=== PATIENT | male | born 1945 | race Caucasian/White ===

== ENCOUNTER → 2020-06-15 08:04 | Outpatient (BNVA) | payer MEDICARE, SELFPAY | PROVIDERS: PCP Family Medicine; Referring Provider Family Medicine; Visit Provider Internal Medicine Endocrinology, Diabetes & Metabolism | DX: E11.65 Type 2 diabetes mellitus with hyperglycemia (principal); E11.21 Type 2 diabetes mellitus with diabetic nephropathy; Z79.84 Long term (current) use of oral hypoglycemic drugs; I10 Essential (primary) hypertension; E78.5 Hyperlipidemia, unspecified; I25.10 Atherosclerotic heart disease of native coronary artery without angina pectoris; E66.3 Overweight; Z68.25 Body mass index [BMI] 25.0-25.9, adult; I25.2 Old myocardial infarction | CPT/HCPCS: 36415; 80053; 80061; 82043; 82607; 82947; 83721; 85027; 99212 ==

== ENCOUNTER 2020-06-15 09:27 | Outpatient (REF) | payer MEDICARE, SELFPAY ==
[2020-06-15 10:24] LABS: Hematocrit 46.2 % (42-52); Mean Corpuscular HGB Conc 32.5 g/dl (31.0-36.0); Mean Corpuscular Volume 98.5 fL (80-98); Mean Platelet Volume 9.3 fL (9.4-12.4); Platelet Count 251 X10*3/uL (160-400); Red Blood Count 4.69 X10*6/uL (4.60-5.80); Red Cell Distribution Width 13.8 % (11.0-16.0); White Blood Count 4.6 X10*3/uL (4.8-10.8)
[2020-06-15 11:05] LABS: Alanine Aminotransferase 25 U/L (0-40); Albumin Level 4.6 g/dL (3.5-5.0); Alkaline Phosphatase 70 U/L (39-117); Anion Gap 14 (12-20); Aspartate Amino Transferase 20 U/L (5-37); Bilirubin Total 0.6 mg/dL (0.0-1.0); Blood Urea Nitrogen 15 mg/dL (9-16); Calcium 9.2 mg/dL (8.4-10.2); Carbon Dioxide 26 mmol/L (22-29); Chloride 102 mmol/L (96-108); Cholesterol 124 mg/dL; Estimated Glomerular Filt Rate > 60; Glucose Fasting 159 mg/dL (60-99); HDL Cholesterol 34 mg/dL; LDL Cholesterol Calculated 74 mg/dl; Potassium 4.3 mmol/l (3.3-5.1); Sodium 138 mmol/L (135-145); Total Protein 6.9 g/dL (6.5-8.0); Triglycerides 80 mg/dL
[2020-06-15 11:26] LABS: Vitamin B12 892 pg/mL (200-900)
[2020-06-15 11:27] LABS: Creatinine Urine 60.42 mg/dL; Microalbum/Creatinine Ratio Ur 62.8 ug/mg cr
[2020-06-16 18:12] LABS: LDL Cholesterol Direct 82 mg/dL (<100)
== END 2020-06-15 09:28 | disposition home or self-care (01) ==
LOC: HO.10HDL 09:27
PROVIDERS: Visit Provider Internal Medicine Endocrinology, Diabetes & Metabolism
DX: Z13.89 Encounter for screening for other disorder (principal)
CPT/HCPCS: 36415; 80053; 80061; 82043; 82607; 83721; 85027

== ENCOUNTER → 2020-09-22 13:03 | Outpatient (BNVA) | payer MEDICARE, SELFPAY | PROVIDERS: PCP Family Medicine; Visit Provider Internal Medicine Cardiovascular Disease | DX: I25.10 Atherosclerotic heart disease of native coronary artery without angina pectoris (principal); I10 Essential (primary) hypertension | CPT/HCPCS: 99212 ==

== ENCOUNTER 2020-10-01 09:23 | Outpatient (REF) | payer MEDICARE, SELFPAY ==
[2020-10-01 10:58] LABS: Prostate Specific Antigen 3.25 ng/mL (<0.05-4.0)
== END 2020-10-01 09:24 | disposition home or self-care (01) ==
LOC: HO.10HDL 09:23
PROVIDERS: Absent Provider Family Medicine; Visit Provider Urology
DX: N42.89 Other specified disorders of prostate (principal); Z12.5 Encounter for screening for malignant neoplasm of prostate
CPT/HCPCS: 36415; 84153

== ENCOUNTER 2020-10-15 09:26 | Outpatient (REF) | payer MEDICARE, SELFPAY ==
--- NOTE | ~2020-10-15 | MR_ITS ---
EXAMINATION: MR BRAIN WITHOUT AND WITH CONTRAST CLINICAL INFORMATION: Sensorineural hearing loss right ear. COMPARISON: CT scan of the head 04/22/2019. MRI scan of the brain 01/28/2013. TECHNIQUE: Multiplanar, multisequence MRI of the brain was obtained before and after the intravenous administration of 8 mL Gadavist. FINDINGS: The VII and VIII cranial nerve complexes are normal in course and caliber. No signal abnormality is visualized within the inner ear structures on the precontrast axial T1-weighted sequence. Fluid signal is preserved within the cochleae, semicircular canals, and vestibules on the high-resolution axial FIESTA sequence. No cerebellopontine angle lesion is noted. There is no abnormal labyrinthine or intracanalicular enhancement on postcontrast imaging. No diffusion abnormality is seen. The ventricles and sulci are slightly commensurately prominent consistent with mild diffuse volume loss. There are a few scattered foci of increased FLAIR signal in the periventricular and subcortical white matter, consistent with chronic microvascular ischemic changes. There is a 7 mm focus of low gradient signal in the left occipital lobe posteromedially, which has low signal on other sequences. It is increased in size and conspicuity compared to the prior MRI scan, and is consistent with sequelae of a chronic microhemorrhage or microcalcification. No mass effect or midline shift is evident. No extra-axial fluid collections are noted. The brainstem and cerebellum are normal. On postcontrast imaging, there is no abnormal parenchymal or leptomeningeal enhancement. The craniovertebral junction, marrow signal, and midline structures are normal. The visualized portions of the major intracranial flow-voids at the level of the kaw of [place] are preserved. The dural venous sinus flow-voids are maintained. There is moderate to extensive fluid in the right mastoid air cells, which was demonstrated on prior imaging. There is a prominent cyst in the right maxillary sinus. The nasal septum is deviated to the right. MR/MR head/brain wo/w con IMPRESSION: 1. There are no acute bleeds or infarcts. There are no masses or areas of abnormal enhancement. 2. The CP angles and internal auditory canals appear normal. There is moderate to extensive fluid in the right mastoid air cells, which was present on prior imaging. 3. There is a small focus of low gradient signal in the left occipital lobe, which is most consistent with sequelae of a chronic microhemorrhage or microcalcification.
[2020-10-15 10:05] LABS: Blood Urea Nitrogen 17 mg/dL (9-16); Estimated Glomerular Filt Rate > 60
== END 2020-10-15 09:27 | disposition home or self-care (01) ==
LOC: HO.MRI 09:26
PROVIDERS: PCP Family Medicine; Visit Provider Otolaryngology
DX: H90.41 Sensorineural hearing loss, unilateral, right ear, with unrestricted hearing on the contralateral side (principal); D33.3 Benign neoplasm of cranial nerves
CPT/HCPCS: 36415; 70553; 82565; 84520; A9585

== ENCOUNTER → 2020-11-23 07:53 | Outpatient (BNVA) | payer MEDICARE, SELFPAY | PROVIDERS: PCP Family Medicine; Visit Provider Internal Medicine Endocrinology, Diabetes & Metabolism | DX: E11.65 Type 2 diabetes mellitus with hyperglycemia (principal); E11.21 Type 2 diabetes mellitus with diabetic nephropathy; E66.3 Overweight; Z68.26 Body mass index [BMI] 26.0-26.9, adult; E78.5 Hyperlipidemia, unspecified; I10 Essential (primary) hypertension; Z79.84 Long term (current) use of oral hypoglycemic drugs; Z71.3 Dietary counseling and surveillance | CPT/HCPCS: 82947; 99212 ==

== ENCOUNTER 2020-12-03 11:16 | Outpatient (REF) | payer MEDICARE, SELFPAY ==
[2020-12-03 12:49] LABS: Alanine Aminotransferase 22 U/L (0-40); Albumin Level 4.6 g/dL (3.5-5.0); Alkaline Phosphatase 73 U/L (39-117); Anion Gap 13 (12-20); Aspartate Amino Transferase 17 U/L (5-37); Bilirubin Total 0.6 mg/dL (0.0-1.0); Blood Urea Nitrogen 14 mg/dL (9-16); Calcium 9.7 mg/dL (8.4-10.2); Carbon Dioxide 28 mmol/L (22-29); Estimated Glomerular Filt Rate > 60; Glucose Random 156 mg/dL (60-115); Potassium 4.6 mmol/L (3.3-5.1); Sodium 139 mmol/L (135-145); Total Protein 7.1 g/dL (6.5-8.0)
[2020-12-03 12:50] LABS: Chloride 103 mmol/L (96-108)
[2020-12-03 12:58] LABS: Estimated Average Glucose 166 mg/dL; Hemoglobin A1c % 7.4 %
== END 2020-12-03 11:17 | disposition home or self-care (01) ==
LOC: HO.LAB 11:16
PROVIDERS: Absent Provider Physician Assistant; PCP Family Medicine; Visit Provider Internal Medicine Endocrinology, Diabetes & Metabolism
DX: E11.49 Type 2 diabetes mellitus with other diabetic neurological complication (principal)
CPT/HCPCS: 36415; 80053; 83036

== ENCOUNTER → 2021-04-06 09:15 | Outpatient (BNVA) | payer MEDICARE, SELFPAY | PROVIDERS: PCP Family Medicine; Referring Provider Family Medicine; Visit Provider Internal Medicine Cardiovascular Disease | DX: I25.10 Atherosclerotic heart disease of native coronary artery without angina pectoris (principal); E78.5 Hyperlipidemia, unspecified | CPT/HCPCS: 93005; 99212 ==

== ENCOUNTER 2021-04-22 09:24 | Outpatient (REF) | payer MEDICARE, SELFPAY ==
[2021-04-22 10:54] LABS: Alanine Aminotransferase 18 U/L (0-40); Albumin Level 4.4 g/dL (3.5-5.0); Alkaline Phosphatase 67 U/L (39-117); Anion Gap 13 (12-20); Aspartate Amino Transferase 16 U/L (5-37); Bilirubin Total 0.8 mg/dL (0.0-1.0); Blood Urea Nitrogen 14 mg/dL (9-16); Calcium 9.2 mg/dL (8.4-10.2); Carbon Dioxide 25 mmol/L (22-29); Chloride 103 mmol/L (96-108); Cholesterol 118 mg/dL; Estimated Glomerular Filt Rate > 60; Glucose Fasting 141 mg/dL (60-99); HDL Cholesterol 34 mg/dL; LDL Cholesterol Calculated 69 mg/dl; Potassium 4.3 mmol/L (3.3-5.1); Sodium 137 mmol/L (135-145); Total Protein 6.8 g/dL (6.5-8.0); Triglycerides 77 mg/dL
[2021-04-24 13:40] LABS: CRP High Sensitivity 0.4 mg/L
== END 2021-04-22 09:25 | disposition home or self-care (01) ==
LOC: HO.10HDL 09:24
PROVIDERS: Absent Provider Internal Medicine Endocrinology, Diabetes & Metabolism; Referring Provider Family Medicine; Visit Provider Internal Medicine Cardiovascular Disease
DX: E78.5 Hyperlipidemia, unspecified (principal); I25.10 Atherosclerotic heart disease of native coronary artery without angina pectoris; E11.65 Type 2 diabetes mellitus with hyperglycemia
CPT/HCPCS: 36415; 80053; 80061; 86141

== ENCOUNTER → 2021-05-26 07:36 | Outpatient (BNVA) | payer MEDICARE, SELFPAY | PROVIDERS: PCP Family Medicine; Visit Provider Nurse Practitioner Gerontology | DX: E11.65 Type 2 diabetes mellitus with hyperglycemia (principal); E11.21 Type 2 diabetes mellitus with diabetic nephropathy; I10 Essential (primary) hypertension; E78.5 Hyperlipidemia, unspecified; E66.3 Overweight | CPT/HCPCS: 82947; 83036; 99212 ==

== ENCOUNTER 2021-06-12 16:10 | Emergency (ER) | payer MEDICARE, SELFPAY ==
--- NOTE | 2021-06-12 | ECG_ITS ---
Test Reason : PALPITATIONS Blood Pressure : / mmHG Vent. Rate : 078 BPM Atrial Rate : 078 BPM P-R Int : 170 ms QRS Dur : 092 ms QT Int : 368 ms P-R-T Axes : 043 -02 072 degrees QTc Int : 419 ms Normal sinus rhythm Low voltage QRS Left axis deviation Borderline ECG When compared with ECG of 08-JUL-2018 16:44, No significant change was found Referred By: Generic ED Physician Electronically Signed By:KARIS ALEMAN MD
[2021-06-12 16:16] VITALS: BP 135/67; PULSE 79; RESP 18; TEMP 36.8; O2SAT 98; BMI 25.9
--- NOTE | 2021-06-12 18:04 | ED.ARRPALP ---
HPI - Arrhythmia/Palpitations General Chief Complaint: Arrhythmia/Palpitations Stated Complaint: Palpitations Time Seen by Provider: 06/12/21 17:47 Source: patient Limitations: no limitations History of Present Illness HPI narrative: This is a 76-year-old male with history of coronary artery disease, hypertension, dyslipidemia, type 2 diabetes, who was recently noted palpitations especially his night, like his heart is going fast and irregular. It is better during the daytime. It is not constant. Patient denies any chest pain, shortness of breath, dizzy spells, lower extremity swelling. He said he has had these palpitations off and on some time but they seem worse recently. He does use caffeine sometimes and notes that when he drinks a caffeinated beverage, tends to fall asleep okay but wakes up at 05:00 o'clock the next morning. 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 He does use occasional home grownmarijuana but stopped that about a week and half ago. He also notes that he is on isosorbide and wonders if it does not wear office sometimes he wakes up with chest discomfort at 4 5 in the morning. He also notes that his statin medication seems to cause joint pain in his shoulders, and he takes coenzyme Q10 which helps with that somewhat. Related Data Home Medications Medication Instructions Recorded Confirmed blood sugar diagnostic #10 ea 06/15/20 05/26/21 finasteride 5 mg tablet 5 mg PO DAILY 09/22/20 05/26/21 coenzyme Q10 75 mg capsule (Ultra 75 mg PO DAILY 04/06/21 05/26/21 CoQ10) Previous Rx's Medication Instructions Recorded empagliflozin 25 mg tablet 25 mg PO DAILY 90 Days #90 tab 11/23/20 (Jardiance) metformin 1,000 mg tablet 1,000 mg PO BID 90 Days #180 tab 11/23/20 pen needle, diabetic 32 gauge x 1 ea SUBCUT DAILY 90 Days #100 ea 11/23/20 (BD Ultra-Fine Guillermina Pen Needle) atorvastatin 40 mg tablet 40 mg PO DAILY #90 tab 02/02/21 isosorbide mononitrate 30 mg 30 mg PO QAM #90 tab 02/05/21 tablet,extended release 24 hr metoprolol succinate 100 mg 100 mg PO DAILY #90 tab 03/18/21 tablet,extended release 24 hr lisinopril 5 mg tablet 5 mg PO DAILY 90 Days #90 tab 05/20/21 dulaglutide 0.75 mg/0.5 mL 0.75 mg SUBCUT QWEEK #2 ml 05/26/21 subcutaneous pen injector (Trulicity) Allergies Allergy/AdvReac Type Severity Reaction Status Date / Time No Known Allergies Allergy Unknown UNKNOWN Unverified 05/26/21 08:03 [NO KNOWN ALLERGIES] Review of Systems Review of Systems: Yes all other systems are reviewed and are negative Constitutional: Constitutional: Reports as per HPI and Denies fever(s) Eyes: Eyes: Reports as per HPI and Reports no additional eye complaints ENT: Reports system reviewed and no additional complaints, except as documented, Reports as per HPI, Denies Normal hearing present (Wears hearing aid), Denies nasal congestion, Denies nasal discharge and Denies sore throat Cardiovascular: Cardiovascular: Reports as per HPI, Reports chest pain (Describes a stable anginal pain) and Denies dyspnea Respiratory: Respiratory: Reports as per HPI, Denies cough and Denies dyspnea Gastrointestinal: Gastrointestinal: Reports as per HPI, Denies abdominal pain, Reports diarrhea, Denies nausea and Denies vomiting Genitourinary: Genitourinary: Reports as per HPI, Denies hematuria, Denies dysuria and Denies urinary frequency Musculoskeletal: Musculoskeletal: Reports arthralgias and Denies numbness Integumentary/Breasts: Skin/Breast: Reports as per HPI and Denies rash Neurologic: Reports as per HPI, Denies Normal hearing present (Wears hearing aid), Denies focal weakness, Denies numbness and Denies Sensory deficit (Neuro) Psychiatric: Psychiatric: Reports no additional psychiatric complaints and Reports as per HPI Endocrine: Endocrine: Reports no additional endocrine complaints and Reports as per HPI Hematologic/Lymphatic: Hematologic/Lymphatic: Reports no additional hematologic/lymphatic complaints, Reports as per HPI and Reports other (No peripheral edema) [facility] Past Medical History Medical History CAD (coronary artery disease) Diabetes type 2, uncontrolled Diabetic nephropathy associated with type 2 diabetes mellitus Dyslipidemia Hypertension Overweight (BMI 25.0-29.9) Surgical History History of prostate surgery Hx of cardiac cath Stented coronary artery Family History Family History Father No problems noted. Mother No problems noted. Maternal Uncle Diabetes mellitus Social History Social History (Updated 05/26/21 @ 07:44 by MARIE Bunch) Household Members: Family Alcohol intake: current Alcohol intake frequency: a few times a month Alcohol type: beer and hard liquor Patient Tobacco Use Status: Never used Tobacco Advance Directives: No Advance Directives Information Provided: No Physical Exam Vital Signs: Vital Signs: Last Vital Signs Temp 98.0 F 06/12/21 19:16 Pulse 67 06/12/21 19:16 Resp 16 06/12/21 19:16 BP 127/76 06/12/21 19:16 Pulse Ox 98 06/12/21 19:16 Body Mass Index 25.9 Const: General: cooperative, no acute distress and alert Orientation/consciousness: patient oriented x3 HENMT: Head: Yes normal to inspection Eyes: General: appearance normal, both eyes and all related structures Eyelids: Yes eyelids normal Conjunctivae: conjunctivae normal Pupils: Equal, round and reactive pupils present Neck: Neck: Yes normal visual inspection and Yes supple Chest: Chest palpation & inspection: normal inspection of the chest Resp: Effort & Inspection: normal respiratory effort Auscultation: clear to auscultation bilaterally Cardio: Rate: regular rate Rhythm: regular rhythm Heart sounds: S1 normal heart sound present, S2 normal heart sound present, no gallops, no murmurs and no rubs GI: Palpation (GI): Soft to palpation, nontender and Other GI palpation findings present (Non-distended) Auscultation: normal bowel sounds Skin: General skin exam: no rashes or lesions noted Neuro: General: patient oriented x3, no focal motor deficits and CN's II-XI intact bilaterally Cranial nerves: Yes Equal, round and reactive pupils present and No Normal hearing present (Wears hearing aid) Cognition (Neuro): normal cognition Motor exam (neuro): 5/5 motor strength present throughout Sensory Exam: No Sensory deficit (Neuro) Extrem: General: Yes normal to inspection and Yes no pedal edema Psych: Appearance: grossly normal Affect: normal affect MDM - Arrhythmia/Palpitations MDM Narrative Medical decision making narrative: Patient with a history of coronary artery disease, but no history of arrhythmia unknown. Patient does have obstructive sleep apnea, hypertension, dyslipidemia, diabetes. Patient notes palpitations especially at night, feels like his heart goes fast and irregular. EKG normal here. No arrhythmia observed on the monitor during the patient's ED stay. Patient seems to believe that symptoms occur especially when he is sleeping or nearly sleeping. May be related to obstructive sleep apnea, though the patient does use a CPAP machine. May have an anxiety component. Recommend cessation of caffeine and alcohol, follow-up with primary care physician or applications coordinator for placement of an event monitor. Patient overall well-appearing, mentally sharp Medical Records Attestation: I reviewed the patient's medical records. Lab Data Attestation: I reviewed the patient's lab results. Result diagrams: 06/12/21 18:11 06/12/21 18:11 Labs: Lab Results 06/12/21 06/12/21 06/12/21 Range/Units 18:11 18:11 18:11 WBC 6.0 (4.8-10.8) X10*3/uL RBC 4.77 (4.60-5.80) X10*6/uL Hgb 15.6 (14.0-18.0) g/dl Hct 47.1 (42.0-52.0) % MCV 98.7 H (80.0-98.0) fL MCH 32.7 (27.0-33.0) pg MCHC 33.1 (31.0-36.0) g/dl RDW 13.2 (11.0-16.0) % Plt Count 255 (160-400) X10*3/uL MPV 9.1 L (9.4-12.4) fL Immature Gran % (Auto) 0.5 H (0.0-0.4) % Neut % (Auto) 54.2 (45-73) % Lymph % (Auto) 35.1 (20-40) % [place] % (Auto) 7.2 (2-11) % Eos % (Auto) 2.5 (0-4) % Baso % (Auto) 0.5 (0-2) % Lymph # (Auto) 2.1 (1.2-4.9) X10*3/uL [place] # (Auto) 0.4 (0.1-1.2) X10*3/uL Eos # (Auto) 0.2 (0.0-0.4) X10*3/uL Baso # (Auto) 0.0 (0.0-0.2) X10*3/uL Abs Immat Gran (auto) 0.03 (0.00-0.03) X10*3/uL Absolute Neuts (auto) 3.3 (2.0-8.3) x10*3/uL Absolute Nucleated RBC 0.000 (0.0-0.012) X10*3/uL Nucleated RBC % (auto) 0.0 (0.0-0.2) /100WBC Sodium 139 (135-145) mmol/L Potassium 4.9 (3.3-5.1) mmol/L Chloride 104 (96-108) mmol/L Carbon Dioxide 24 (22-29) mmol/L Anion Gap 16 (12-20) BUN 15 (9-16) mg/dL Creatinine 0.81 (0.5-1.4) mg/dL Estim Creat Clear Calc 73.8 Estimated GFR > 60 Random Glucose 121 H (60-115) mg/dL Calcium 10.1 D (8.4-10.2) mg/dL Magnesium 2.0 (1.6-2.6) mg/dL Total Bilirubin 0.7 (0.0-1.0) mg/dL AST 19 (5-37) U/L ALT 20 (0-40) U/L Alkaline Phosphatase 72 (39-117) U/L Troponin I High Sens < 3.5 (<3.5-35.0) ng/L Total Protein 7.7 (6.5-8.0) g/dL Albumin 4.9 (3.5-5.0) g/dL ECG Data ECG interpretation date: 06/12/21 ECG interpretation time: 18:09 Interpretation: Sinus rhythm with a rate of 78. No ST elevation or depression. Normal QRS axis. Normal EKG. Discharge Plan Discharge Clinical Impression: Palpitations Patient Disposition: Home, Self-Care Instructions: Heart Palpitations (ED) Additional Instructions: Continue current medications. Avoid caffeine as well as alcohol use. Follow-up with primary care physician or applications coordinator for ordering/placement of an event monitor. Return for any new or worsened symptoms such as dizzy spells or fainting episodes, persistent rapid irregular heart rate, persistent chest pain or shortness of breath. Prescriptions: No Action atorvastatin 40 mg tablet 40 mg PO DAILY Qty: 90 RF: 1 isosorbide mononitrate 30 mg tablet extended release 24 hr 30 mg PO QAM Qty: 90 RF: 3 metoprolol succinate 100 mg tablet extended release 24 hr 100 mg PO DAILY Qty: 90 RF: 1 lisinopril 5 mg tablet 5 mg PO DAILY 90 Days Qty: 90 RF: 1 (DME) FreeStyle Lite Strips Strip See Rx Instructions ea Not Applicable TID Qty: 10 RF: 0 Jardiance 25 mg tablet 25 mg PO DAILY 90 Days Qty: 90 RF: 1 metformin 1,000 mg tablet 1,000 mg PO BID 90 Days Qty: 180 RF: 1 pen needle, diabetic [BD Ultra-Fine Guillermina Pen Needle] 32 gauge x 5/32 needle 1 ea subcut DAILY 90 Days Qty: 100 RF: 2 finasteride 5 mg tablet 5 mg PO DAILY RF: 0 Ultra CoQ10 75 mg capsule 75 mg PO DAILY RF: 0 Trulicity 0.75 mg/0.5 mL pen injector 0.75 mg subcut QWEEK Qty: 2 RF: 11 Interventions: ED Discharge Assessment Last Done: 06/12/21 19:48 Discharge Date/Time: 06/12/21 19:49
[2021-06-12 18:15] LABS: MANUAL DIFF FLAG NO
[2021-06-12 18:36] LABS: Basophils Percent Auto 0.5 % (0-2); Eosinophils Absolute Auto 0.2 X10*3/uL (0.0-0.4); Eosinophils Percent Auto 2.5 % (0-4); Hematocrit 47.1 % (42.0-52.0); Hemoglobin 15.6 g/dl (14.0-18.0); Imm Gran Abs Auto 0.03 X10*3/uL (0.00-0.03); Imm Gran Pct Auto 0.5 % (0.0-0.4); Lymphocytes Absolute Auto 2.1 X10*3/uL (1.2-4.9); Lymphocytes Percent Auto 35.1 % (20-40); Mean Corpuscular HGB Conc 33.1 g/dl (31.0-36.0); Mean Corpuscular Hemoglobin 32.7 pg (27.0-33.0); Mean Corpuscular Volume 98.7 fL (80.0-98.0); Mean Platelet Volume 9.1 fL (9.4-12.4); Monocytes Absolute Auto 0.4 X10*3/uL (0.1-1.2); Monocytes Percent Auto 7.2 % (2-11); Neutrophils Absolute Auto 3.3 x10*3/uL (2.0-8.3); Neutrophils Percent Auto 54.2 % (45-73); Platelet Count 255 X10*3/uL (160-400); Red Blood Count 4.77 X10*6/uL (4.60-5.80); Red Cell Distribution Width 13.2 % (11.0-16.0)
[2021-06-12 18:43] LABS: Troponin-I High Sensitivity < 3.5 ng/L (<3.5-35.0)
[2021-06-12 18:45] LABS: Alanine Aminotransferase 20 U/L (0-40); Albumin Level 4.9 g/dL (3.5-5.0); Alkaline Phosphatase 72 U/L (39-117); Anion Gap 16 (12-20); Aspartate Amino Transferase 19 U/L (5-37); Bilirubin Total 0.7 mg/dL (0.0-1.0); Blood Urea Nitrogen 15 mg/dL (9-16); Calcium 10.1 mg/dL (8.4-10.2); Carbon Dioxide 24 mmol/L (22-29); Chloride 104 mmol/L (96-108); Creatinine Clr Calc Pharmacy 73.8; Estimated Glomerular Filt Rate > 60; Glucose Random 121 mg/dL (60-115); Potassium 4.9 mmol/L (3.3-5.1); Sodium 139 mmol/L (135-145); Total Protein 7.7 g/dL (6.5-8.0)
[2021-06-12 19:16] VITALS: BP 127/76; PULSE 67; RESP 16; TEMP 36.7; O2SAT 98
== END 2021-06-12 19:49 | disposition home or self-care (01) ==
PROVIDERS: Emergency Provider Emergency Medicine
DX: R00.2 Palpitations (principal); I10 Essential (primary) hypertension; E11.9 Type 2 diabetes mellitus without complications; I25.10 Atherosclerotic heart disease of native coronary artery without angina pectoris; G47.33 Obstructive sleep apnea (adult) (pediatric); Z79.899 Other long term (current) drug therapy; Z99.89 Dependence on other enabling machines and devices
CPT/HCPCS: 36415; 80053; 83735; 84484; 85025; 93005; 99283; 99284

== ENCOUNTER → 2021-06-22 06:58 | Outpatient (REF) | payer MEDICARE, SELFPAY ==
--- NOTE | 2021-06-22 07:00 | HM_ITS ---
Conclusion: 1. Patient was monitored for total period of 3 days and 1 hour 2. Baseline was normal sinus rhythm with average heart of 81 beats per minute 3. No significant pauses or bradycardia noted 4. Total of 12,062 PVCs noted with 3 different morphology accounting for total of 3.43% burden consistent with frequent PVCs 5. One episode of 3 beats of of PVCs at a rate of 130 beats per minute 6. No patient reported events MTDD
== END ==
LOC: HO.CARD 06:58
PROVIDERS: PCP Family Medicine; Visit Provider Internal Medicine Cardiovascular Disease
DX: R00.2 Palpitations (principal)
CPT/HCPCS: 93242

== ENCOUNTER 2021-07-26 22:17 | Emergency (ER) | payer MEDICARE, SELFPAY ==
[2021-07-26 22:49] VITALS: BP 144/78; PULSE 88; RESP 18; TEMP 37; O2SAT 97; BMI 26.7
--- NOTE | 2021-07-27 | ECG_ITS ---
Test Reason : DYSPNEA Blood Pressure : / mmHG Vent. Rate : 079 BPM Atrial Rate : 079 BPM P-R Int : 182 ms QRS Dur : 092 ms QT Int : 386 ms P-R-T Axes : 031 000 062 degrees QTc Int : 442 ms Sinus rhythm with occasional Premature ventricular complexes Otherwise normal ECG When compared with ECG of 12-JUN-2021 16:32, Premature ventricular complexes are now Present Referred By: Lona Mcmahon Electronically Signed By:ЕКАТЕРИНА CERVANTES MD
[2021-07-27 00:01] LABS: COVID-19 Test Negative (Negative)
--- NOTE | 2021-07-27 03:15 | ED_ITS ---
HPI - General Adult General Chief complaint: General Medical Stated complaint: weakness, body aches Time Seen by Provider: 07/26/21 22:21 Source: patient and EMS Mode of arrival: EMS Limitations: no limitations History of Present Illness HPI narrative: Patient comes to the emergency room complaining of couple of days of head pressure, mild upper respiratory symptoms, body aches. Patient denies fever or chills, denies any chest pain. No shortness of breath. No abdominal symptoms, no UTI symptoms. Related Data Home Medications Medication Instructions Recorded Confirmed blood sugar diagnostic #10 ea 06/15/20 05/26/21 finasteride 5 mg tablet 5 mg PO DAILY 09/22/20 05/26/21 coenzyme Q10 75 mg capsule (Ultra 75 mg PO DAILY 04/06/21 05/26/21 CoQ10) Previous Rx's Medication Instructions Recorded pen needle, diabetic 32 gauge x 1 ea SUBCUT DAILY 90 Days #100 ea 11/23/20 (BD Ultra-Fine Guillermina Pen Needle) atorvastatin 40 mg tablet 40 mg PO DAILY #90 tab 02/02/21 isosorbide mononitrate 30 mg 30 mg PO QAM #90 tab 02/05/21 tablet,extended release 24 hr metoprolol succinate 100 mg 100 mg PO DAILY #90 tab 03/18/21 tablet,extended release 24 hr lisinopril 5 mg tablet 5 mg PO DAILY 90 Days #90 tab 05/20/21 dulaglutide 0.75 mg/0.5 mL 0.75 mg (0.5 mL) SUBCUT QWEEK #2 ml 05/26/21 subcutaneous pen injector (Trulicity) empagliflozin 25 mg tablet 25 mg PO DAILY 90 Days #90 tab 07/06/21 (Jardiance) metformin 1,000 mg tablet 1,000 mg PO BID 90 Days #180 tab 07/07/21 Allergies Allergy/AdvReac Type Severity Reaction Status Date / Time No Known Allergies Allergy Unknown UNKNOWN Unverified 05/26/21 08:03 [NO KNOWN ALLERGIES] Review of Systems Review of Systems: Constitutional : No Weight loss, denies fever chills, complaining of weakness, generalized body aches ENT/Mouth : No Hearing loss, No Ear Pain, No Nasal Congestion, No Sinus Pain, No Hoarseness, No sore throat, No Rhinorrhea, No Swallowing Difficulty Eyes: No Eye Pain, No Swelling, No Redness, No Foreign Body, No Discharge, No Vision Changes Cardiovascular : No Chest Pain, No SOB, No Dyspnea on Exertion, No Orthopnea, No Edema, No Palpitations Respiratory : No Cough, No Sputum, No Wheezing, No Smoke Exposure, No Dyspnea Gastrointestinal : No Nausea, No Vomiting, No Diarrhea, No Constipation, No abdominal Pain, No Hematochezia, No Melena Genitourinary : no irregular bleeding, No Dysuria, No Urinary Frequency, No Hematuria, No Urinary Incontinence, No Urgency, No Flank Pain, No Urinary Flow Changes, No Hesitancy Musculoskeletal : No joint pain, No Myalgias, No Joint Swelling Skin : No Skin Lesions, No rash Neuro : No Weakness, No Numbness, No Paresthesias, No Loss of Consciousness, No Dizziness, complaining of a mild headache Psych : No Anxiety/Panic, No Depression, No SI/HI/AH/VH, No Social Issues, Heme/Lymph: No Bruising, No Bleeding,No Lymphadenopathy Endocrine : No Polyuria, No Polydipsia, No Temperature Intolerance [facility] Past Medical History Medical History CAD (coronary artery disease) Diabetes type 2, uncontrolled Diabetic nephropathy associated with type 2 diabetes mellitus Dyslipidemia Hypertension Overweight (BMI 25.0-29.9) Surgical History History of prostate surgery Hx of cardiac cath Stented coronary artery Family History Family History Father No problems noted. Mother No problems noted. Maternal Uncle Diabetes mellitus Social History Social History (Updated 05/26/21 @ 07:44 by MARIE Bunch) Household Members: Family Alcohol intake: current Alcohol intake frequency: a few times a month Alcohol type: beer and hard liquor Patient Tobacco Use Status: Never used Tobacco Advance Directives: No Physical Exam Vital Signs: Vital Signs: Last Vital Signs Temp 98.6 F 07/26/21 22:49 Pulse 88 07/26/21 22:49 Resp 18 07/26/21 22:49 BP 144/78 H 07/26/21 22:49 Pulse Ox 97 07/26/21 22:49 BMI result Body Mass Index 26.7 Const: Other: Appearance: Alert. Oriented X3. No acute distress. Well- appearing Eyes: Pupils equal, round and reactive to light. ENT: Pharynx normal. Neck: Normal inspection. Neck supple. No lymph nodes noted. No crepitus CVS: Normal heart rate and rhythm. Pulses normal. Normal S1 and S2 Respiratory: No respiratory distress. Breath sounds normal. No Wheezing. No rales Abdomen: Soft and nontender. No rigidity. No distention. Skin: Skin warm and dry. Normal skin color. Normal skin turgor. Extremities: No lower extremity edema. No Lacerations. No Rash Neuro: Oriented X 3. No motor deficit. No sensory deficit. Moving all extermities. No slurred speech. Course Course Course Narrative: Patient tested negative for COVID-19. However, patient did not wait for his EKG and to discuss doing lab/blood work Medical Decision Making Lab Data Labs: Lab Results 07/26/21 Range/Units 23:35 COVID-19 ([facility]) Negative (Negative) COVID-19 Clin Com See Note Discharge Plan Discharge Clinical Impression: Acute viral syndrome Patient Disposition: Elopement Instructions: Viral Syndrome (ED) Additional Instructions: Please follow-up with your primary care physician tomorrow. If you have any worsening or new symptoms, please return to the emergency room or call 911 Prescriptions: No Action atorvastatin 40 mg tablet 40 mg PO DAILY Qty: 90 RF: 1 isosorbide mononitrate 30 mg tablet extended release 24 hr 30 mg PO QAM Qty: 90 RF: 3 metoprolol succinate 100 mg tablet extended release 24 hr 100 mg PO DAILY Qty: 90 RF: 1 lisinopril 5 mg tablet 5 mg PO DAILY 90 Days Qty: 90 RF: 1 Jardiance 25 mg tablet 25 mg PO DAILY 90 Days Qty: 90 RF: 1 metformin 1,000 mg tablet 1,000 mg PO BID 90 Days Qty: 180 RF: 1 (DME) FreeStyle Lite Strips Strip See Rx Instructions ea Not Applicable TID Qty: 10 RF: 0 pen needle, diabetic [BD Ultra-Fine Guillermina Pen Needle] 32 gauge x 5/32 needle 1 ea subcut DAILY 90 Days Qty: 100 RF: 2 finasteride 5 mg tablet 5 mg PO DAILY RF: 0 Ultra CoQ10 75 mg capsule 75 mg PO DAILY RF: 0 Trulicity 0.75 mg/0.5 mL pen injector 0.75 mg subcut QWEEK Qty: 2 RF: 11
--- NOTE | 2021-07-27 04:21 | PC.NURSE ---
ALYSE LEAVING PRIOR TO PROVIDER REEVALUATION. EKG COMPLETE AND PATIENT TOLD HIS COVID RESULTS BY PROVIDER. PATIENT THEN ELOPING FROM DEPARTMENT WITHOUT DICUSSING FURTHER PLAN OF CARE WITH PROVIDER
== END 2021-07-27 04:25 | disposition left against medical advice (07) ==
PROVIDERS: Physician Assistant; Emergency Provider Emergency Medicine; PCP Family Medicine
DX: B34.9 Viral infection, unspecified (principal); Z20.822 Contact with and (suspected) exposure to COVID-19; R53.1 Weakness; I10 Essential (primary) hypertension; E11.9 Type 2 diabetes mellitus without complications; E78.5 Hyperlipidemia, unspecified; Z79.02 Long term (current) use of antithrombotics/antiplatelets; Z79.4 Long term (current) use of insulin; Z79.899 Other long term (current) drug therapy
CPT/HCPCS: 36415; 87635; 93005; 99283

== ENCOUNTER → 2021-07-29 10:51 | Outpatient (REF) | payer MEDICARE, SELFPAY ==
--- NOTE | 2021-07-29 10:54 | HM_ITS ---
TEST PERFORMED: Cardiac event monitoring. REQUESTING PHYSICIAN: Dr. Sun. INDICATION: Palpitations. ENROLLMENT PERIOD: 07/29/2021, to 08/28/2021; 30 days. FINDINGS: In the above monitoring period, underlying rhythm is sinus. Rates are between 63 to 99 beats per minute. There were isolated PVCs noted at different times. PACs noted. On several occasions, the patient has noted symptoms of palpitations, racing, fluttering, and others. A lot of this correlated with sinus rhythm and some with PVCs. CONCLUSION: Study shows underlying sinus rhythm, rare PACs. PVCs were noted. Symptoms of palpitations, racing, fluttering correlate with both sinus rhythm as well as PVCs. MD GEOVANNA Garcia/EDWIN / [id number]
== END ==
LOC: HO.CARD 10:51
PROVIDERS: Visit Provider Nurse Practitioner Family
DX: R00.2 Palpitations (principal)
CPT/HCPCS: 93270

== ENCOUNTER → 2021-08-31 07:52 | Outpatient (BNVA) | payer MEDICARE, SELFPAY | PROVIDERS: PCP Physician Assistant; Visit Provider Nurse Practitioner Gerontology | DX: E11.65 Type 2 diabetes mellitus with hyperglycemia (principal); E11.21 Type 2 diabetes mellitus with diabetic nephropathy; E78.5 Hyperlipidemia, unspecified; E66.3 Overweight; I10 Essential (primary) hypertension; Z68.27 Body mass index [BMI] 27.0-27.9, adult | CPT/HCPCS: 82947; 83036; 99212 ==

== ENCOUNTER 2021-09-08 08:44 | Outpatient (REF) | payer MEDICARE, SELFPAY ==
[2021-09-08 10:48] LABS: Alanine Aminotransferase 19 U/L (0-40); Albumin Level 4.4 g/dL (3.5-5.0); Alkaline Phosphatase 88 U/L (39-117); Anion Gap 11 (12-20); Aspartate Amino Transferase 16 U/L (5-37); Bilirubin Total 0.5 mg/dL (0.0-1.0); Blood Urea Nitrogen 14 mg/dL (9-16); Calcium 9.7 mg/dL (8.4-10.2); Carbon Dioxide 28 mmol/L (22-29); Chloride 104 mmol/L (96-108); Cholesterol 120 mg/dL; Estimated Glomerular Filt Rate > 60; Glucose Random 172 mg/dL (60-115); HDL Cholesterol 33 mg/dL; LDL Cholesterol Calculated 76 mg/dl; Potassium 4.5 mmol/L (3.3-5.1); Sodium 138 mmol/L (135-145); Total Protein 6.9 g/dL (6.5-8.0); Triglycerides 55 mg/dL
[2021-09-08 11:05] LABS: Creatinine Urine 54.24 mg/dL; Microalbum/Creatinine Ratio Ur 57.1 ug/mg cr
[2021-09-08 11:11] LABS: Free T4 (Free Thyroxine) 1.02 ng/dL (0.71-1.85); Vitamin D 25-OH Total 13.7 ng/mL (>30)
[2021-09-08 11:18] LABS: Vitamin B12 701 pg/mL (200-900)
[2021-09-10 03:02] LABS: LDL Cholesterol Direct 73 mg/dL (<100)
== END 2021-09-08 08:45 | disposition home or self-care (01) ==
LOC: HO.10HDL 08:44
PROVIDERS: Absent Provider Internal Medicine Cardiovascular Disease; Referring Provider Physician Assistant; Visit Provider Nurse Practitioner Gerontology
DX: E11.65 Type 2 diabetes mellitus with hyperglycemia (principal); E55.9 Vitamin D deficiency, unspecified
CPT/HCPCS: 36415; 80053; 80061; 82043; 82306; 82607; 83721; 84439; 84443

== ENCOUNTER 2021-10-20 09:20 | Outpatient (REF) | payer MEDICARE, SELFPAY ==
[2021-10-20 10:50] LABS: Blood Urea Nitrogen 18 mg/dL (9-16); Estimated Glomerular Filt Rate > 60
== END 2021-10-20 09:21 | disposition home or self-care (01) ==
LOC: HO.10HDL 09:20
PROVIDERS: Visit Provider Urology
DX: N40.1 Benign prostatic hyperplasia with lower urinary tract symptoms (principal)
CPT/HCPCS: 36415; 82565; 84520

== ENCOUNTER → 2022-04-11 09:25 | Outpatient (BNVA) | payer MEDICARE, SELFPAY | PROVIDERS: PCP Physician Assistant; Visit Provider Internal Medicine Cardiovascular Disease | DX: I25.10 Atherosclerotic heart disease of native coronary artery without angina pectoris (principal); R07.89 Other chest pain | CPT/HCPCS: 93005; 99212 ==

== ENCOUNTER → 2022-05-23 08:18 | Outpatient (REF) | payer MEDICARE, SELFPAY ==
--- NOTE | ~2022-05-23 | NM_ITS ---
Exercise Myocardial perfusion study Indication: Chest pain to evaluate for myocardial ischemia Technique: The patient was brought in for an exercise perfusion study on 05/23/2022. Patient performed exercise as per Marcial protocol and was injected 25 mCi of sestamibi was given intravenously one target HR was achieved. Images were obtained using the SPECT gamma camera interlaced with the gating device. Images were obtained in supine position. Resting perfusion study was performed on 05/25/2022. Patient was administered 25 mCi of sestamibi intravenously at rest. Images were then obtained in supine position. Images obtained with and without CT attenuation. Total DLP 82 mGy-cm. Images were processed with the software and compared side to side in short axis, horizontal long axis and vertical long axis views. Findings: The stress perfusion study showed non attenuated images show severely reduced uptake in the basal and mid inferolateral as well as the lateral wall of the LV myocardium as well as mildly to moderately reduced uptake in the apical inferolateral wall and moderately severely reduced uptake in the inferior wall of the LV myocardium. Attenuation corrected images show normalized uptake in the basal and mid inferior wall with moderately reduced apical as well as the apical portion of the LV myocardium with mildly reduced uptake in the apical inferolateral and moderately to severely reduced uptake in the basal inferolateral and lateral wall of the LV myocardium. The gated study shows normal LV systolic function with calculated LVEF of 61%. LV cavity is normal in in size. The gated study shows normal systolic wall thickening and contraction of all segments. There is no transient ischemic dilation. Resting study shows improved uptake in the inferolateral as well as the lateral portion of the LV myocardium consistent with reversible defect. Gating at rest reveals normal systolic wall motion with ejection fraction at 65%. The findings are consistent with reversible defect of mild to moderate intensity of the basal and mid lateral as well as inferior intensity reversible defect in the basal inferolateral wall just of ischemia.. NM/NM john perf SPECT rest & str Impression: 1. Ischemia of the inferolateral and lateral wall in circumflex territory 2. Gated LVEF is 61% 3. Transient ischemic dilatation not present Stress EKG is positive for ischemia
--- NOTE | 2022-05-23 08:21 | CA_ITS ---
Acquisition Time: 2022-05-23 08:40:31 Total Exercise Time: 00:06:00 Test Indications: R07.9 Medications: Protocol: LINCOLN Max HR: 123 BPM 86% of Pred: 142 BPM Max BP: 160/082 mmHG Max Work Load: 7.0 METS Exercise stress test with exercise 6 min of Lincoln protocol, achieving 86% MPHR, with fatigue and mild sob, no chest discomfort, with isolated PVC, with normotensive response to exercise, with EKG changes meeting criteria for ischemia: [address] depression V2- V5 with T inversion leads I, aVL with slow gradual improvement in recovery. Nuclear images pending. Test reviewed with Dr Houston. Referred By: Titus Sun Overread By: RADHA LOWRY
== END ==
LOC: HO.CARD 08:18
PROVIDERS: PCP Physician Assistant; Visit Provider Internal Medicine Cardiovascular Disease
DX: I25.10 Atherosclerotic heart disease of native coronary artery without angina pectoris (principal)
CPT/HCPCS: 78452; 93017; A9500

== ENCOUNTER → 2022-05-26 10:58 | Outpatient (BNVA) | payer MEDICARE, SELFPAY | PROVIDERS: PCP Physician Assistant; Visit Provider Internal Medicine Cardiovascular Disease | DX: I25.10 Atherosclerotic heart disease of native coronary artery without angina pectoris (principal) | CPT/HCPCS: 99212 ==

== ENCOUNTER 2022-07-11 08:16 | Outpatient (REF) | payer MEDICARE, SELFPAY ==
[2022-07-11 11:23] LABS: Cholesterol 107 mg/dL; HDL Cholesterol 36 mg/dL; LDL Cholesterol Calculated 59 mg/dl; Triglycerides 63 mg/dL
== END 2022-07-11 08:17 | disposition home or self-care (01) ==
LOC: HO.10HDL 08:16
PROVIDERS: Absent Provider Physician Assistant; Visit Provider Internal Medicine Cardiovascular Disease
DX: I25.10 Atherosclerotic heart disease of native coronary artery without angina pectoris (principal)
CPT/HCPCS: 36415; 80061

== ENCOUNTER → 2022-09-14 09:28 | Outpatient (BNVA) | payer MEDICARE, SELFPAY | PROVIDERS: PCP Physician Assistant; Visit Provider Internal Medicine Cardiovascular Disease | DX: I25.10 Atherosclerotic heart disease of native coronary artery without angina pectoris (principal); I10 Essential (primary) hypertension; Z95.5 Presence of coronary angioplasty implant and graft; Z98.890 Other specified postprocedural states | CPT/HCPCS: 99212 ==

== ENCOUNTER → 2022-12-15 10:29 | Outpatient (BNVA) | payer MEDICARE, SELFPAY | PROVIDERS: PCP Physician Assistant; Visit Provider Internal Medicine Cardiovascular Disease | DX: I25.10 Atherosclerotic heart disease of native coronary artery without angina pectoris (principal); I10 Essential (primary) hypertension | CPT/HCPCS: 99212 ==

== ENCOUNTER 2023-05-22 13:03 | Outpatient (AMB) | payer MEDICARE, SELFPAY ==
--- NOTE | 2023-05-22 13:04 | MHC.OFFVIS ---
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 Allergies No Known Allergies [NO KNOWN ALLERGIES] Allergy (Unknown, Verified 12/15/22 10:36) UNKNOWN Medication List - Last Reconciled 05/22/23 by Titus Sun MD atorvastatin 80 mg PO BEDTIME blood sugar diagnostic As directed cholecalciferol (vitamin D3) 50 mcg PO DAILY coenzyme Q10 (Ultra CoQ10) 75 mg PO DAILY empagliflozin (Jardiance) 25 mg PO DAILY 90 days isosorbide mononitrate ER 30 mg PO DAILY lisinopril 5 mg PO DAILY metformin 1,000 mg PO BID 90 days metoprolol succinate ER 100 mg PO DAILY nitroglycerin 0.4 mg sublingual Q5M PRN pen needle, diabetic (BD Ultra-Fine Guillermina Pen Needle) 1 ea subcut DAILY 90 days HPI HPI Comments History of Present Illness Details Alhaji comes for follow-up. No new cardiac symptoms. Remains very active and can role for about 2 hours on a Sh[place] without any exertional symptoms. Denies chest pain, shortness of breath, fatigue. Denies any other heart failure symptoms. No palpitations irregular heartbeat. No lightheadedness, syncope. Takes all his medications. [facility] Medical History Vitamin D deficiency Overweight (BMI 25.0-29.9) CAD (coronary artery disease) Dyslipidemia Hypertension Diabetic nephropathy associated with type 2 diabetes mellitus Diabetes type 2, uncontrolled Surgical History Stented coronary artery History of prostate surgery Hx of cardiac cath Family History Father No problems noted. Mother No problems noted. Maternal Uncle Diabetes mellitus Social History Household Members: Family Alcohol intake: current Alcohol intake frequency: a few times a month Alcohol type: beer and hard liquor Patient Tobacco Use Status: Never used Tobacco Substance Use Type: Marijuana Review of Systems Const Denies chills, Denies fatigue, Denies fever(s), Denies frequent falls, Denies weakness, Denies weight gain and Denies weight loss ENT Denies dizziness Card Denies chest pain, Denies leg edema, Denies lightheadedness, Denies palpitations, Denies dyspnea, Denies dyspnea on exertion, Denies orthopnea and Denies other (loss of consciousness) Resp Denies cough, Denies dyspnea and Denies dyspnea on exertion GI Denies hematochezia and Denies change in stool character Musc Denies abnormal gait, Denies muscle weakness, Denies numbness, Denies radiating pain into limb and Denies tingling Neuro Denies abnormal gait, Denies dizziness, Denies frequent falls, Denies numbness, Denies tingling and Denies weakness Endo Denies fatigue and Denies palpitations Physical Exam Vital Signs: Last Vital Signs Pulse 64 05/22/23 13:06 BP 120/70 05/22/23 13:06 BMI result Body Mass Index 29.0 Const General: cooperative, comfortable, no acute distress, alert and awake Nutritional Appearance: average body habitus Orientation/consciousness: patient oriented x3 Limitations: no limitations Neck Neck: Yes trachea midline, Yes supple and Yes no JVD Resp Effort & Inspection: normal respiratory effort Auscultation: clear to auscultation bilaterally Cardio Jugular venous distension: no JVD Palpation: normal PMI Rate: regular rate Rhythm: regular rhythm Heart sounds: S1 normal heart sound present and S2 normal heart sound present Skin General skin exam: no rashes or lesions noted Neuro General: patient oriented x3 and no focal motor deficits Extrem General: Yes no clubbing, cyanosis or edema Psych Appearance: grossly normal Affect: Anxious affect present Office Procedures EKG Details: EKG shows normal sinus rhythm nonspecific T-wave changes 17913-[id number], Complete Assessment & Plan Assessment & Plan (1) CAD (coronary artery disease): Code(s): I25.10 - Atherosclerotic heart disease of [place] coronary artery without angina pectoris Plan: coronary artery disease with prior LAD stenting with diffuse atherosclerotic disease with circumflex territory ischemia without any exertional symptoms at good workload. Patient is currently on dual antianginal therapy and tolerating them well. We discussed about management of coronary artery disease including medical therapy versus intervention. Medical research was discussed. Continue low-dose aspirin therapy for life. Continue aggressive risk factor modification. Goal LDL closer to 60 mg/dL. Diabetes goal with hemoglobin A1c less than 7%. Continue aggressive blood pressure control. See below (2) Hypertension: Code(s): I10 - Essential (primary) hypertension Plan: hypertension which is currently well optimized advised to monitor blood pressure at home maintain a log. Goal blood pressure less than 130/84. Low-salt diet was discussed. Advised to maintain heart healthy lifestyle. Advised to maintain activity level as tolerated. Continue current therapy. Will follow up in the clinic in 1 year's time, sooner p.r.n.. Thank you for allowing me to partake in his care Coding Level of Care Code Est Pt Level 4 (41403) Diagnoses CAD (coronary artery disease) I25.10 Hypertension I10 CPT Codes EKG - CPT: 51181-[id number], Complete ([id number])
[2023-05-22 13:06] VITALS: BP 120/70; PULSE 64; BMI 29.0
== END 2023-05-22 13:34 | disposition home or self-care (01) ==
PROVIDERS: Visit Provider Internal Medicine Cardiovascular Disease
DX: I25.10 Atherosclerotic heart disease of native coronary artery without angina pectoris (principal); I10 Essential (primary) hypertension
CPT/HCPCS: 93010; 99214

== ENCOUNTER → 2023-05-22 13:03 | Outpatient (BNVA) | payer MEDICARE, SELFPAY | PROVIDERS: Visit Provider Internal Medicine Cardiovascular Disease | DX: I25.10 Atherosclerotic heart disease of native coronary artery without angina pectoris (principal); I10 Essential (primary) hypertension | CPT/HCPCS: 93005; 99212 ==

== ENCOUNTER 2023-07-21 11:41 | Emergency (ER) | payer MEDICARE, SELFPAY ==
--- NOTE | ~2023-07-21 | XR_ITS ---
EXAMINATION: XR CHEST CLINICAL INFORMATION: Left shoulder blade pain COMPARISON: 07/08/2018, 06/01/2016 TECHNIQUE: 2 views of the chest were obtained. FINDINGS: No acute finding. The lung leach show no pneumothorax or effusion. Nodular densities overlying the lower lung zones bilaterally could represent the patient's nipple shadow. Similar to previous study of 06/01/2016. The cardiac silhouette is within normal limits. The hilar regions do not appear pathologically enlarged. XR/XR chest 2V IMPRESSION: No acute finding. As described nodular densities at the lung bases could represent the patient's nipple shadow. Consider repeat filming with nipple markers for complete assessment.
--- NOTE | 2023-07-21 12:31 | ED_ITS ---
HPI - General Adult General Chief complaint: Back Pain/Injury Stated complaint: L Side Pain Near Shoulderblade Time Seen by Provider: 07/21/23 13:01 Source: patient Limitations: no limitations History of Present Illness HPI narrative: 78 years old with past medical history of CAD status post stent, hypertension, hyperlipidemia, diabetes, presents to the emergency room with left-sided shoulder pain. Patient reports that the pain started 2 days ago, is constant and is at the time of examination 2/10 in severity. The patient reports that the pain does not get worse with ambulation, respiration or movement of the shoulder. At home patient has tried Tylenol without improvement of the pain, has tried also nitro with resolution of the symptoms. Pain is not associated with shortness of breath or cough. No nausea vomiting or abdominal pain. Patient denies trauma of the back or chest over the past 7 days. No headache blurry vision, slurred speech. Related Data Home Medications Medication Instructions Recorded Confirmed blood sugar diagnostic #10 ea 06/15/20 12/15/22 coenzyme Q10 75 mg capsule (Ultra 75 mg PO DAILY 04/06/21 05/22/23 CoQ10) Previous Rx's Medication Instructions Recorded pen needle, diabetic 32 gauge x 1 ea subcut DAILY 90 days #100 ea 11/23/20 (BD Ultra-Fine Guillermina Pen Needle) cholecalciferol (vitamin D3) 50 50 mcg PO DAILY #90 caps 09/08/21 mcg (2,000 unit) capsule metoprolol succinate 100 mg 100 mg PO DAILY #90 tabs 09/23/21 tablet,extended release 24 hr empagliflozin 25 mg tablet 25 mg PO DAILY 90 days #90 tabs 01/20/22 (Jardiance) metformin 1,000 mg tablet 1,000 mg PO BID 90 days #180 tabs 01/20/22 lisinopril 5 mg tablet 5 mg PO DAILY #90 tabs 10/26/22 nitroglycerin 0.4 mg sublingual 0.4 mg sublingual Q5M PRN chest 11/24/22 tablet pain #30 tabs atorvastatin 80 mg tablet 80 mg PO BEDTIME #90 tabs 02/14/23 isosorbide mononitrate 60 mg 60 mg PO DAILY #14 tabs 07/21/23 tablet,extended release 24 hr Allergies Allergy/AdvReac Type Severity Reaction Status Date / Time No Known Allergies Allergy Unknown UNKNOWN Verified 07/21/23 12:32 [NO KNOWN ALLERGIES] Review of Systems 2 Review of Systems: Yes all other systems are reviewed and are negative [facility] Past Medical History Medical History Vitamin D deficiency Overweight (BMI 25.0-29.9) CAD (coronary artery disease) Dyslipidemia Hypertension Diabetic nephropathy associated with type 2 diabetes mellitus Diabetes type 2, uncontrolled Surgical History Stented coronary artery History of prostate surgery Hx of cardiac cath Family History Family History Father No problems noted. Mother No problems noted. Maternal Uncle Diabetes mellitus Social History Social History Household Members: Family Alcohol intake: current Alcohol intake frequency: a few times a month Alcohol type: beer Patient Tobacco Use Status: Never used Tobacco Smoked in Last 30 Days: No Use of substances other than those prescribed or required for medical reasons: Yes Substance Use Type: Marijuana Advance Directives: Yes Advance Directives Information Provided: Yes Advance Directives on File: No Physical Exam ED Vital Signs: Vital Signs - 24 hr 07/21/23 12:32 Temperature 98.2 F Pulse Rate 87 Respiratory Rate 16 Blood Pressure 147/77 H Pulse Oximetry 98 Oxygen Delivery Method Room Air BMI result Body Mass Index 29.2 General: Alert, Not in Distress Skin: No rash, warm HEENT: Atraumatic, No Exudate or Pharyngeal Erythema Resp: Normal Breath sounds bilaterally Cardio: Regular rate and Rhythm, Normal S1, S2 ABD: Abd soft, non tender, no guarding or rebound. Normal Bowel sounds. : No cva tenderness Neuro: Alert, oriented x4, PERRL Strenght 5/5 on all extremities Sensation is preserved in both lower and upper extremities Index to nose: normal Cranial Nerves II-XII grossly intact No dysarthria, or aphasia No neglet. Visual leach are normal bilaterally Psych: Cooperative, NO SI Course Course Course Narrative: This is a rapid medical exam: Additional HPI, ROS, PE not included below will be deferred to primary provider. Patient is a 78-year-old male with history of T2DM, HTN, CAD, dyslipidemia presenting to the ED with complaint of pain under left shoulder blade for the past 48 hours. Tried OTC pain medication and massage initially which did not improve pain. Overnight last night tried taking his nitroglycerine which did improve the pain. States pain has not gotten worse than a 5/10. Pain worsens with laying supine. He called his PCP who referred him to the ED. Plan: EKG, CXR, labs Reevaluation(s) Reevaluation #1: First and 2nd troponin are within normal limits. Chest x-ray which I personally reviewed was also within normal limits. Discussed the case with cardiology who agreed at this time pain does not appear to be typical and with a negative troponin they are okay with patient being discharged home. They recommend increase dosage of the Imdur to 60 mg. Return precaution were discussed with patient. Will discharge home. Time: 15:51 Medications Administered Discontinued Medications Generic Name Dose Route Start Last Admin Trade Name Delq PRN Reason Stop Dose Admin Acetaminophen 975 mg 07/21/23 13:20 07/21/23 14:02 Acetaminophen 325 Mg Tablet PO 07/21/23 13:21 975 mg ONCE ONE Administration Lidocaine 1 patch 07/21/23 13:17 07/21/23 14:02 Lidocaine 4 % Patch Adh..Patch TRANSDERMA 07/21/23 13:18 1 patch ONCE ONE Administration Protocol Medical Decision Making Differential Diagnosis 78 years old with the history of CAD, presents emergency room with left-sided scapular pain, pain is relieved by nitro, but not exertional. Possible differential diagnosis include ACS, pneumonia, pneumothorax, musculoskeletal pain. Plan EKG CBC, BMP, serial troponin Chest x-ray Analgesia Lab Data 07/21/23 13:02 07/21/23 13:02 Labs: Lab Results 07/21/23 07/21/23 Range/Units 13:02 14:59 WBC 5.6 (4.8-10.8) X10*3/uL RBC 4.50 L (4.60-5.80) X10*6/uL Hgb 14.7 (14.0-18.0) g/dl Hct 44.3 (42.0-52.0) % MCV 98.4 H (80.0-98.0) fL MCH 32.7 (27.0-33.0) pg MCHC 33.2 (31.0-36.0) g/dl RDW 14.1 (11.0-16.0) % Plt Count 239 (160-400) X10*3/uL MPV 9.3 L (9.4-12.4) fL Immature Gran % (Auto) 0.4 (0.0-0.4) % Neut % (Auto) 66.2 (45-73) % Lymph % (Auto) 23.1 (20-40) % [place] % (Auto) 9.1 (2-11) % Eos % (Auto) 0.5 (0-4) % Baso % (Auto) 0.7 (0-2) % Lymph # (Auto) 1.3 (1.2-4.9) X10*3/uL [place] # (Auto) 0.5 (0.1-1.2) X10*3/uL Eos # (Auto) 0.0 (0.0-0.4) X10*3/uL Baso # (Auto) 0.0 (0.0-0.2) X10*3/uL Abs Immat Gran (auto) 0.02 (0.00-0.03) X10*3/uL Absolute Neuts (auto) 3.7 (2.0-8.3) x10*3/uL Absolute Nucleated RBC 0.000 (0.0-0.012) X10*3/uL Nucleated RBC % (auto) 0.0 (0.0-0.2) /100WBC PT 11.6 (11.1-13.3) SEC INR 1.0 (0.9-1.1) Sodium 138 (135-145) mmol/L Potassium 4.4 (3.3-5.1) mmol/L Chloride 104 (96-108) mmol/L Carbon Dioxide 24 (22-29) mmol/L Anion Gap 14 (12-20) BUN 18 H (9-16) mg/dL Creatinine 0.89 (0.5-1.4) mg/dL Estim Creat Clear Calc 70.0 Estimated GFR > 60 Random Glucose 159 H (60-115) mg/dL Calcium 9.7 (8.4-10.2) mg/dL Total Bilirubin 0.7 (0.0-1.0) mg/dL AST 20 (5-37) U/L ALT 24 (0-40) U/L Alkaline Phosphatase 77 (39-117) U/L Troponin I High Sens < 2.7 < 2.7 (<3.5-35.0) ng/L Total Protein 7.4 (6.5-8.0) g/dL Albumin 4.7 (3.5-5.0) g/dL Independent Interpretation I performed an independent interpretation of an: EKG (Normal sinus rhythm) Independent Historian Clinical information obtained from an independent historian. History obtained from or confirmed by: Spouse Discharge Plan Discharge Clinical Impression: Thoracic back pain Patient Disposition: Home, Self-Care Additional Instructions: You were seen emergency room for left-sided back pain. Your EKG, serial troponin, CBc, BMP were unremarkable. 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 Case was discussed with cardiology team here and they recommended to increase the dose of imdur from 30 mg daily to 60 mg daily. Prescription was sent to her pharmacy. Presented emergency room if your symptoms worsen. Prescriptions: New isosorbide mononitrate 60 mg tablet extended release 24 hr 60 mg PO DAILY Qty: 14 0RF Discontinued isosorbide mononitrate 30 mg tablet extended release 24 hr 30 mg PO DAILY Qty: 30 3RF No Action cholecalciferol (vitamin D3) 50 mcg (2,000 unit) capsule 50 mcg PO DAILY Qty: 90 3RF Rx Instructions: Start once have completed vitamin-D 07568 units once a week for 6 weeks. metoprolol succinate 100 mg tablet extended release 24 hr 100 mg PO DAILY Qty: 90 1RF Jardiance 25 mg tablet 25 mg PO DAILY 90 Days Qty: 90 1RF metformin 1,000 mg tablet 1,000 mg PO BID 90 Days Qty: 180 1RF lisinopril 5 mg tablet 5 mg PO DAILY Qty: 90 3RF nitroglycerin 0.4 mg tablet, sublingual 0.4 mg sublingual Q5M PRN (Reason: chest pain) Qty: 30 1RF Rx Instructions: do not exceed 3 doses per episode atorvastatin 80 mg tablet 80 mg PO BEDTIME Qty: 90 3RF (DME) FreeStyle Lite Strips Strip See Rx Instructions Not Applicable TID Qty: 10 Rx Instructions: As directed pen needle, diabetic [BD Ultra-Fine Guillermina Pen Needle] 32 gauge x 5/32 needle 1 ea subcut DAILY 90 Days Qty: 100 2RF Ultra CoQ10 75 mg capsule 75 mg PO DAILY Referrals: Titus Sun MD [Physician] - 1 week
[2023-07-21 12:32] VITALS: BP 147/77; PULSE 87; RESP 16; TEMP 36.8; O2SAT 98; BMI 29.2
--- NOTE | 2023-07-21 12:34 | ECG_ITS ---
Test Reason : BACK PAIN Blood Pressure : / mmHG Vent. Rate : 079 BPM Atrial Rate : 079 BPM P-R Int : 170 ms QRS Dur : 094 ms QT Int : 376 ms P-R-T Axes : 049 011 073 degrees QTc Int : 431 ms Normal sinus rhythm Normal ECG When compared with ECG of 27-JUL-2021 03:30, Premature ventricular complexes are no longer Present Referred By: Keesha Haney Electronically Signed By:LG VU
[2023-07-21 13:06] LABS: MANUAL DIFF FLAG NO
[2023-07-21 13:09] LABS: Basophils Percent Auto 0.7 % (0-2); Eosinophils Percent Auto 0.5 % (0-4); Hematocrit 44.3 % (42.0-52.0); Hemoglobin 14.7 g/dl (14.0-18.0); Imm Gran Abs Auto 0.02 X10*3/uL (0.00-0.03); Imm Gran Pct Auto 0.4 % (0.0-0.4); Lymphocytes Absolute Auto 1.3 X10*3/uL (1.2-4.9); Lymphocytes Percent Auto 23.1 % (20-40); Mean Corpuscular HGB Conc 33.2 g/dl (31.0-36.0); Mean Corpuscular Hemoglobin 32.7 pg (27.0-33.0); Mean Corpuscular Volume 98.4 fL (80.0-98.0); Mean Platelet Volume 9.3 fL (9.4-12.4); Monocytes Absolute Auto 0.5 X10*3/uL (0.1-1.2); Monocytes Percent Auto 9.1 % (2-11); Neutrophils Absolute Auto 3.7 x10*3/uL (2.0-8.3); Neutrophils Percent Auto 66.2 % (45-73); Platelet Count 239 X10*3/uL (160-400); Red Cell Distribution Width 14.1 % (11.0-16.0); White Blood Count 5.6 X10*3/uL (4.8-10.8)
[2023-07-21 13:13] LABS: Prothrombin Time 11.6 SEC (11.1-13.3)
[2023-07-21 13:23] LABS: Alanine Aminotransferase 24 U/L (0-40); Albumin Level 4.7 g/dL (3.5-5.0); Alkaline Phosphatase 77 U/L (39-117); Anion Gap 14 (12-20); Aspartate Amino Transferase 20 U/L (5-37); Bilirubin Total 0.7 mg/dL (0.0-1.0); Blood Urea Nitrogen 18 mg/dL (9-16); Calcium 9.7 mg/dL (8.4-10.2); Carbon Dioxide 24 mmol/L (22-29); Chloride 104 mmol/L (96-108); Estimated Glomerular Filt Rate > 60; Glucose Random 159 mg/dL (60-115); Potassium 4.4 mmol/L (3.3-5.1); Sodium 138 mmol/L (135-145); Total Protein 7.4 g/dL (6.5-8.0)
[2023-07-21 13:32] LABS: Troponin-I High Sensitivity < 2.7 ng/L (<3.5-35.0)
[2023-07-21] MEDS: Acetaminophen 325 MG TABLET 975 MG PO (14:02)
[2023-07-21] MEDS: Lidocaine 4 % Patch ADH..PATCH 1 PATCH TRANSDERMA (14:02)
--- NOTE | 2023-07-21 14:08 | PC.NURSE ---
pt a&ox3, vss, medicated per MAR, resting quietly pending repeat trop at 1500.
[2023-07-21 15:34] LABS: Troponin-I High Sensitivity < 2.7 ng/L (<3.5-35.0)
[2023-07-21 16:15] VITALS: BP 131/74; PULSE 73; RESP 16; O2SAT 98
== END 2023-07-21 16:19 | disposition home or self-care (01) ==
PROVIDERS: Registered Nurse Emergency; Emergency Provider Student in an Organized Health Care Education/Training Program
DX: M54.6 Pain in thoracic spine (principal); M25.512 Pain in left shoulder; I10 Essential (primary) hypertension; E11.9 Type 2 diabetes mellitus without complications; E78.5 Hyperlipidemia, unspecified; I25.10 Atherosclerotic heart disease of native coronary artery without angina pectoris
CPT/HCPCS: 36415; 71046; 80053; 84484; 85025; 85610; 93005; 99283; 99285

== ENCOUNTER → 2023-07-21 12:34 | Outpatient (BNV) | payer MEDICARE, SELFPAY | PROVIDERS: Emergency Provider Student in an Organized Health Care Education/Training Program; Visit Provider Internal Medicine | DX: I25.10 Atherosclerotic heart disease of native coronary artery without angina pectoris (principal) | CPT/HCPCS: 93010 ==

== ENCOUNTER → 2023-09-01 08:30 | Outpatient (REF) | payer MEDICARE, SELFPAY ==
--- NOTE | ~2023-09-01 | NM_ITS ---
Exercise Myocardial perfusion study Indication: Chest pain to evaluate for myocardial ischemia Technique: The patient was brought in for an exercise perfusion study on 09/01/2023. Patient performed exercise as per Marcial protocol and was injected 30 mCi of sestamibi was given intravenously one target HR was achieved. Images were obtained using the SPECT gamma camera interlaced with the gating device. Images were obtained in supine position. Resting perfusion study was performed on 09/04/2023. Patient was administered 30 mCi of sestamibi intravenously at rest. Images were then obtained in supine position. Images obtained with and without CT attenuation. Total DLP 81 mGy-cm. Images were processed with the software and compared side to side in short axis, horizontal long axis and vertical long axis views. Findings: The stress perfusion study showed non attenuated images show moderate to severely reduced uptake in the inferior as well as inferolateral wall of the LV myocardium. Moderately reduced uptake in the basal and mid lateral wall of the LV myocardium. Attenuation corrected images shows mildly reduced uptake in the basal and mid lateral wall of the LV myocardium.. The gated study shows normal LV systolic function with calculated LVEF of 65%. LV cavity is normal in size. The gated study shows normal systolic wall thickening and contraction of all segments except basal lateral. There is no transient ischemic dilation. Resting study shows non attenuated images show partially improved uptake in the inferior as well as inferolateral as well as basal and mid lateral wall of the LV myocardium suggest either severe ischemia or mixed ischemia and infarction pattern. Gating at rest reveals normal cyst colic wall motion with ejection fraction at greater than 60%. The findings are consistent with partially reversible defect along segment, inferior as well as inferolateral and mid and basal lateral wall suggestive wall ischemia in circumflex/ RCA territory. NM/NM cardiolite stress test Impression: 1. Moderately large area of partially reversible defect in RCA/circumflex territory suggestive of ischemia 2. Gated LVEF is 65% 3. Transient ischemic dilatation not present Stress EKG is suggestive of ischemia
--- NOTE | 2023-09-01 08:34 | CA_ITS ---
Acquisition Time: 2023-09-01 08:41:40 Total Exercise Time: 00:05:59 Test Indications: R07.89 - Other chest pain Medications: Protocol: LINCOLN Max HR: 123 BPM 87% of Pred: 141 BPM Max BP: 144/060 mmHG Max Work Load: 7.0 METS Exercise stress test exercise 5 min 59 sec of Lincoln protocol achieving 86% MPHR, with mild SOB, with isolated PVCs, with normotensive response to exercise, with downsloping leads 1, aVL, V2-V5. scooping V6. Nuclear images pending. Test reviewed with Dr. Houston. Referred By: Rosette Petersen Overread By: Leanne Flores
== END ==
LOC: HO.CARD 08:30
PROVIDERS: Visit Provider Nurse Practitioner Family
DX: R07.89 Other chest pain (principal); I25.10 Atherosclerotic heart disease of native coronary artery without angina pectoris
CPT/HCPCS: 36415; 78452; 84154; 93017; A9500

== ENCOUNTER → 2023-09-01 08:34 | Outpatient (BNV) | payer MEDICARE, SELFPAY | PROVIDERS: Visit Provider Nurse Practitioner | DX: I25.10 Atherosclerotic heart disease of native coronary artery without angina pectoris (principal) | CPT/HCPCS: 78452; 93016; 93018 ==

== ENCOUNTER 2023-09-01 10:16 | Outpatient (REF) | payer MEDICARE, SELFPAY ==
[2023-09-04 10:39] LABS: Free Prostate Spec Ag 1.1 ng/mL; Percent Free Prostate Spec Ag 33 % (calc) (>25); Prostate Specific Ag Total 3.3 ng/mL (< OR = 4.0)
== END 2023-09-01 10:17 | disposition home or self-care (01) ==
LOC: HO.10HDL 10:16
PROVIDERS: Visit Provider Physician Assistant
DX: Z13.89 Encounter for screening for other disorder (principal)
CPT/HCPCS: 36415; 84154

== ENCOUNTER 2023-09-25 08:20 | Outpatient (AMB) | payer MEDICARE, SELFPAY ==
[2023-09-25 08:24] VITALS: BP 120/62; PULSE 68
--- NOTE | 2023-09-25 08:24 | A.OFFVIS_ITS ---
Intake Vital Signs 09/25/23 08:24 Height 57 ft Weight 187 lb 6.287 oz BMI 0.3 BP 120/62 Blood Pressure Location Lt brachial Position Sitting Pulse 68 Pulse Source Pulse Oximeter Intake Visit Reasons: F/up per NS Allergies No Known Allergies [NO KNOWN ALLERGIES] Allergy (Unknown, Verified 09/25/23 08:27) UNKNOWN Medication List - Last Reconciled 09/25/23 by NADIA Rodriguez atorvastatin 80 mg PO BEDTIME blood sugar diagnostic As directed cholecalciferol (vitamin D3) 50 mcg PO DAILY coenzyme Q10 (Ultra CoQ10) 75 mg PO DAILY empagliflozin (Jardiance) 25 mg PO DAILY 90 days glimepiride 2 mg PO BID isosorbide mononitrate ER 30 mg PO BID-TID lisinopril 5 mg PO DAILY metformin 1,000 mg PO BID 90 days metoprolol succinate ER 100 mg PO DAILY nitroglycerin 0.4 mg sublingual Q5M PRN pen needle, diabetic (BD Ultra-Fine Guillermina Pen Needle) 1 ea subcut DAILY 90 days HPI F/up per NS HPI Details Alhaji is a 78-year-old male with past medical history of hypertension, hyperlipidemia, diabetes, coronary artery disease, lad stent, diffuse atherosclerotic disease in the circumflex territory who presents for follow-up. He had a known episode of scapular discomfort back in June. He did take nitroglycerin with improvement of the symptom. When it reoccurred he had ER evaluation which showed no ACS. At that time his isosorbide was increased to 60 mg daily. Today he reports that he has not had any recurrent chest or scapular area discomfort since the episode in June. He feels the increase in isosorbide has helped his symptoms. He tolerates normal ADLs without symptoms. He denies shortness of breath, palpitations, lightheadedness, presyncope, syncope, PND, orthopnea or edema. He is taking his meds as directed. 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 [facility] Medical History Vitamin D deficiency Overweight (BMI 25.0-29.9) CAD (coronary artery disease) Dyslipidemia Hypertension Diabetic nephropathy associated with type 2 diabetes mellitus Diabetes type 2, uncontrolled Surgical History (Updated 09/25/23 @ 09:27 by NADIA Rodriguez) Stented coronary artery History of prostate surgery Hx of cardiac cath Family History Father No problems noted. Mother No problems noted. Maternal Uncle Diabetes mellitus Social History Household Members: Family Alcohol intake: current Alcohol intake frequency: a few times a month Alcohol type: beer Patient Tobacco Use Status: Never used Tobacco Substance Use Type: Marijuana Review of Systems Const All systems reviewed & are unremarkable except as noted in HPI and below ENT Denies dizziness Card Denies chest pain, Denies chest pain at rest, Denies chest pain with activity, Denies rapid heart rate, Denies pedal edema, Denies edema, Denies leg edema, Denies lightheadedness, Denies palpitations, Denies dyspnea, Denies dyspnea on exertion and Denies orthopnea Resp Denies cough, Denies dyspnea and Denies dyspnea on exertion GI Denies hematochezia and Denies change in stool character Musc Denies abnormal gait, Denies limited range of motion, Denies muscle cramps, Denies muscle weakness, Denies numbness, Denies radiating pain into limb, Denies stiffness and Denies tingling Neuro Denies abnormal gait, Denies dizziness, Denies numbness and Denies tingling Endo Denies palpitations Physical Exam Vital Signs: Last Vital Signs Pulse 68 09/25/23 08:24 BP 120/62 09/25/23 08:24 BMI result Body Mass Index 0.3 Const General: cooperative, healthy appearing, comfortable and no acute distress Orientation/consciousness: patient oriented x3 Neck Neck: Yes normal visual inspection and Yes no JVD Resp Effort & Inspection: normal respiratory effort Auscultation: clear to auscultation bilaterally, no crackles, no rales, no rhonchi and no wheezes Cardio Jugular venous distension: no JVD Rate: regular rate Rhythm: regular rhythm Heart sounds: S1 normal heart sound present, S2 normal heart sound present, no murmurs and no rubs Neuro General: patient oriented x3 Extrem General: Yes normal to inspection, No no pedal edema and No calf tenderness Psych Appearance: grossly normal Mental Status: mental status grossly normal Speech and movement: Normal speech and movement present Assessment & Plan Assessment & Plan (1) Chest discomfort: Code(s): R07.89 - Other chest pain Plan: Known history of CAD with LAD stents, residual circumflex diffuse atherosclerotic disease with some ischemia, no exertional symptoms. He had an episode of nonexertional scapular discomfort in June which improved with nitroglycerin use. He then had recurrent symptoms and went to the [facility] ER for evaluation on 07/21/2023. He ruled out for ACS. His isosorbide was increased from 30 mg up to 60 mg daily at that time. A nuclear stress test was done on 09/04/2023 showing moderate to large area of partially reversible defect in the R CA/circumflex territory. He says he has had no recurrent symptoms since then. He denies chest area or scapular area discomfort. He denies shortness of breath. Due to the colder weather he has not been doing any exertional activities. He walks periodically for exercise. Taking all meds as directed. At this time in the absence of symptoms will continue on current med management including aspirin 81 mg daily, atorvastatin high-dose with LDL goal less than 70, metoprolol, lisinopril, isosorbide. Signs and symptoms of angina reviewed with him. Emergency care if needed for symptoms. 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 Sun. Cardiology follow-up 6 months, sooner if needed (2) CAD (coronary artery disease): Code(s): I25.10 - Atherosclerotic heart disease of [place] coronary artery without angina pectoris Plan: As above (3) Dyslipidemia: Code(s): E78.5 - Hyperlipidemia, unspecified Plan: [place] LDL goal less than 70 in patient with known diabetes and CAD. Labs done 07/11/2022 showed LDL 59. He is due for fasting lipids, order placed. Continue atorvastatin 80 mg daily. (4) Hypertension: Code(s): I10 - Essential (primary) hypertension Plan: Well controlled at this time. No medication changes made. (5) Stented coronary artery: Comment: Multiple stents in the LAD for NSTEMI and diffuse calcified heavily stenosis plaquing in the LAD. Code(s): Z95.5 - Presence of coronary angioplasty implant and graft Plan: LAD stents (6) Hx of cardiac cath: Comment: 2x 2012 Code(s): Z98.890 - Other specified postprocedural states Plan: As above Plan Time spent on chart review, documentation, interview and assessment Orders: Orders Lipid Panel Today E78.5 - Hyperlipidemia, unspecified, I25.10 - Atherosclerotic heart disease of [place] coronary artery without angina pectoris Comprehensive Met. Panel Today E78.5 - Hyperlipidemia, unspecified, I25.10 - Atherosclerotic heart disease of [place] coronary artery without angina pectoris Medications: Changed From isosorbide mononitrate ER 60 mg PO DAILY 14 tabs 0RF To isosorbide mononitrate ER 30 mg PO BID-TID Coding Level of Care Code Est Pt Level 4 (40568) Diagnoses Chest discomfort R07.89 CAD (coronary artery disease) I25.10 Dyslipidemia E78.5 Hypertension I10 Stented coronary artery Z95.5 Hx of cardiac cath Z98.890 Time Spent (min) 30
== END 2023-09-25 09:40 | disposition home or self-care (01) ==
PROVIDERS: Visit Provider Nurse Practitioner Family
DX: R07.89 Other chest pain (principal); I25.10 Atherosclerotic heart disease of native coronary artery without angina pectoris; E78.5 Hyperlipidemia, unspecified; I10 Essential (primary) hypertension; Z95.5 Presence of coronary angioplasty implant and graft; Z98.890 Other specified postprocedural states
CPT/HCPCS: 99214

== ENCOUNTER → 2023-09-25 08:20 | Outpatient (BNVA) | payer MEDICARE, SELFPAY | PROVIDERS: Visit Provider Nurse Practitioner Family | DX: R07.89 Other chest pain (principal); I25.10 Atherosclerotic heart disease of native coronary artery without angina pectoris; I10 Essential (primary) hypertension; E78.5 Hyperlipidemia, unspecified; Z95.5 Presence of coronary angioplasty implant and graft; Z98.890 Other specified postprocedural states | CPT/HCPCS: 99212 ==

== ENCOUNTER 2024-02-27 10:27 | Outpatient (REF) | payer MEDICARE, SELFPAY ==
--- NOTE | ~2024-02-27 | CT_ITS ---
EXAMINATION: CT ABDOMEN AND PELVIS WITHOUT AND WITH CONTRAST CLINICAL INFORMATION: Hematuria. COMPARISON: None available. TECHNIQUE: Multidetector volumetric imaging was performed of the abdomen and pelvis before and after the IV administration of 85 mL of Omnipaque 350 intravenous contrast. Sagittal and coronal reformatted images were obtained on the technologist's workstation. This CT examination was performed using dose optimization techniques as appropriate, variously including the following: *Automated exposure control *Adjustment of mA and/or kV according to patient size (this includes techniques or standardized protocols for targeted exams where dose is matched to indication/reason for exam; i.e. extremities or head) *Use of iterative reconstruction technique DLP: 1042 mGy-cm FINDINGS: LUNG BASES: The lung bases appear clear, with no evidence of inflammation or nodules. Partially imaged coronary arterial calcification. Heart normal in size. No pericardial effusion. LIVER, GALLBLADDER, AND BILIARY TREE: The liver appears unremarkable in size, shape, and attenuation. No focal hepatic lesion or biliary ductal dilatation is appreciated. Unremarkable appearance of the gallbladder. PANCREAS: Approximately 0.4 cm calcification in the neck of the pancreas (image 8, series 3), likely benign. SPLEEN: Unremarkable ADRENAL GLANDS: Unremarkable KIDNEYS AND URETERS: Horseshoe kidney. Kidneys otherwise appear unremarkable in size. No hydronephrosis, hydroureter, or calculi seen. BLADDER: Suspect muscular hypertrophy. Approximately 3.5 cm bladder diverticulum posteriorly to the right of midline. GASTROINTESTINAL TRACT: The small and large bowel appear unremarkable. No diverticulosis. Normal-appearing distal ileum and normal. The appendix. ABDOMINAL WALL: At least 10 cm length by 5 cm in diameter right inguinal hernia containing fat. Approximately 7 cm in length by 4.5 cm diameter left inguinal hernia containing fat. LYMPH NODES: No evidence of adenopathy by size criteria. VASCULAR: Aortoiliac calcified and soft plaque with probable chronic, non flow-limiting, thrombosed dissection. Vascular tortuosity, suggesting hypertension. Normal variant origin of the segment 2/3 hepatic artery from left gastric artery. PELVIC VISCERA: Enlarged prostate measuring approximately 5.8 x 5.7 x 5.0 cm. Question TURP. OSSEOUS STRUCTURES: Ankylosis at L5-S1. Mild disc degenerative changes throughout the remainder of the lumbar spine. CT/CT abdomen pelvis wo/w IV con IMPRESSION: Horseshoe kidney. No hydronephrosis, hydroureter, or calculus identified. Enlarged prostate. Suspect muscular hypertrophy of the urinary bladder. 3.5 cm bladder diverticulum. Significant bilateral inguinal hernias. Additional findings, as above. Electronically signed by: Sorin Mota MD 03/24/2024 05:23 PM EDT RP
[2024-02-27] MEDS: iohexoL 350 MG/ML 100 ML INFUS..BTL 85 ML IV (11:43)
[2024-02-28 08:27] LABS: Creatinine POC 0.8 mg/dL (0.5-1.4); GFR POC > 60
== END 2024-02-27 10:28 | disposition home or self-care (01) ==
LOC: HO.CT 10:27
PROVIDERS: Visit Provider Nurse Practitioner Family
DX: R31.9 Hematuria, unspecified (principal)
CPT/HCPCS: 74178; 82565; Q9967

== ENCOUNTER 2024-06-19 11:34 | Outpatient (AMB) | payer MEDICARE, SELFPAY ==
[2024-06-19 11:35] VITALS: BP 118/60; PULSE 77; BMI 25.3
--- NOTE | 2024-06-19 11:35 | A.OFFVIS_ITS ---
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 Accompanied by: Self / Same As Patient Allergies No Known Allergies [NO KNOWN ALLERGIES] Allergy (Unknown, Verified 09/25/23 08:27) UNKNOWN Medication List - Last Reconciled 06/19/24 by Titus Sun MD atorvastatin 80 mg PO BEDTIME blood sugar diagnostic As directed cholecalciferol (vitamin D3) 50 mcg PO DAILY coenzyme Q10 (Ultra CoQ10) 75 mg PO DAILY empagliflozin (Jardiance) 25 mg PO DAILY 90 days glimepiride 2 mg PO BID isosorbide mononitrate ER 30 mg (1/2 x 60 mg) PO BID-TID lisinopril 5 mg PO DAILY metformin 1,000 mg PO BID 90 days metoprolol succinate ER 100 mg PO DAILY nitroglycerin 0.4 mg sublingual Q5M PRN pen needle, diabetic (BD Ultra-Fine Guillermina Pen Needle) 1 ea subcut DAILY 90 days HPI Comments Details: Alhaji comes for follow-up. He has been doing well from cardiac perspective. He had recent presentation to the emergency room with what appears to be musculoskeletal discomfort in the thoracic back. He has had no recurrent symptoms since then. Denies any exertional chest pain or shortness of breath. Maintains activity level as tolerated. Taking all his medications. No heart failure symptoms. No lightheadedness, syncope. No prolonged palpitations. REPLACED BY [facility] Medical History Vitamin D deficiency Overweight (BMI 25.0-29.9) CAD (coronary artery disease) Dyslipidemia Hypertension Diabetic nephropathy associated with type 2 diabetes mellitus Diabetes type 2, uncontrolled Surgical History Stented coronary artery History of prostate surgery Hx of cardiac cath Family History Father No problems noted. Mother No problems noted. Maternal Uncle Diabetes mellitus Social History Household Members: Family Alcohol intake: current Alcohol intake frequency: a few times a month Alcohol type: beer Patient Tobacco Use Status: Never used Tobacco Substance Use Type: Marijuana Review of Systems Const Denies chills, Denies fatigue, Denies fever(s), Denies weight gain and Denies weight loss ENT Denies dizziness Card Denies chest pain, Denies leg edema, Denies lightheadedness, Denies palpitations, Denies dyspnea on exertion, Denies orthopnea and Denies other Resp Denies cough and Denies dyspnea on exertion GI Denies hematochezia and Denies change in stool character Musc Denies abnormal gait, Denies muscle weakness, Denies numbness, Denies radiating pain into limb and Denies tingling Neuro Denies abnormal gait, Denies dizziness, Denies numbness and Denies tingling Endo Denies fatigue and Denies palpitations Physical Exam Vital Signs: Last Vital Signs Pulse 77 06/19/24 11:35 BP 118/60 06/19/24 11:35 BMI result Body Mass Index 25.3 Const General: cooperative, healthy appearing, comfortable and no acute distress Orientation/consciousness: patient oriented x3 Neck Neck: Yes normal visual inspection and Yes no JVD Resp Effort & Inspection: normal respiratory effort Auscultation: clear to auscultation bilaterally, no crackles, no rales, no rhonchi and no wheezes Cardio Jugular venous distension: no JVD Rate: regular rate Rhythm: regular rhythm Heart sounds: S1 normal heart sound present, S2 normal heart sound present, no murmurs and no rubs Neuro General: patient oriented x3 Extrem General: Yes normal to inspection, No no pedal edema and No calf tenderness Psych Appearance: grossly normal Mental Status: mental status grossly normal Speech and movement: Normal speech and movement present Assessment & Plan Assessment & Plan (1) CAD (coronary artery disease): Code(s): I25.10 - Atherosclerotic heart disease of [place] coronary artery without angina pectoris Category: Medical Plan: CAD with diffuse atherosclerosis with stenting of the LAD in the past. No significant symptoms at current time that are concerning for angina. Remains at high risk for cardiovascular events. Continue aggressive medical therapy was discussed advised to call me with any new symptoms. Continue low-dose aspirin therapy for life. Continue high-intensity statin therapy along with ezetimibe therapy with target goal LDL closer to 60 mg/dL. This was discussed with him. Advised lipid panel at least once a year. Continue aggressive diabetes management goal hemoglobin A1c less than 7% being pursue through office. Consider GLP 1 antagonist. Blood pressure is currently well optimized on current therapy with lisinopril and metoprolol. Advised to monitor blood pressure at home maintain a log. Goal blood pressure less than 130/84. Continue isosorbide therapy as empiric therapy for now. Sublingual nitroglycerin use was discussed. Advised to seek emergency care for sudden- onset significant chest pain. Will follow up in the clinic in 1 year's time, sooner p.r.n.. Thank you for allowing me to partake in his care Coding Level of Care Code Est Pt Level 4 (01038) Complex EM visit Add On G2211 Diagnoses CAD (coronary artery disease) I25.10
== END 2024-06-19 11:57 | disposition home or self-care (01) ==
PROVIDERS: PCP Physician Assistant; Visit Provider Internal Medicine Cardiovascular Disease
DX: I25.10 Atherosclerotic heart disease of native coronary artery without angina pectoris (principal)
CPT/HCPCS: 99214; G2211

== ENCOUNTER → 2024-06-19 11:34 | Outpatient (BNVA) | payer MEDICARE, SELFPAY | PROVIDERS: PCP Physician Assistant; Visit Provider Internal Medicine Cardiovascular Disease | DX: I25.10 Atherosclerotic heart disease of native coronary artery without angina pectoris (principal) | CPT/HCPCS: 99212 ==

== ENCOUNTER 2024-06-29 08:42 | Inpatient (IN) | payer MEDICARE, SELFPAY ==
[2024-06-29] VITALS (8 sets, daily range): BP systolic 105–141; BP diastolic 61–75; PULSE 70–84; RESP 14–19; TEMP 36.1–37.1; O2SAT 97–99; BMI 24.4
--- NOTE | ~2024-06-29 | US_ITS ---
EXAMINATION: US SCROTUM CLINICAL INFORMATION: Scrotal/groin pain. COMPARISON: CT abdomen and pelvis 06/29/2024 at 9:35 AM. TECHNIQUE: A sonogram of the scrotum was performed assessing martinez-scale appearance and color Doppler flow. Spectral Doppler analysis of the arterial and venous flow were performed in the testes bilaterally. FINDINGS: RIGHT: Right testicle measures 3.7 x 2.3 x 3.2 cm, volume 14.2 mL. No focal testicular parenchymal lesions are visualized except for multiple hyperechoic linear areas in posterior pole of testes suggestive of tubular ectasia.. Spectral Doppler analysis of the arterial and venous flow is normal in the right testis. Right epididymal head is normal in size. There is echogenic right hydrocele. No varicocele is seen. Right epididymal Doppler flow is normal. There is a mixed attenuation area in the right inguinal region extending to the right scrotum, likely intraperitoneal fat as seen on CT pelvic exam LEFT: Left testicle measures 4.3 x 1.7 x 3.2 cm, volume 12.1 mL. There is a small hypoechoic left testicular cyst measuring 0.26 x 0.26 x 0.33 cm. There is a small echogenic 0.24 x 0.12 x 0.28 cm lesion likely a small scrotal pia. Spectral Doppler analysis of the arterial and venous flow is normal in the left testis. Left epididymal head is normal in size. No left hydrocele or varicocele is seen. Left epididymal Doppler flow is normal. Incidental finding of a large lesion/mass in the left inguinal region with adjacent free fluid. It is avascular and measures 4.0 x 4.0 by is 3.[address] it represented as a left inguinal hernia with a loop of small bowel within US/US scrotum doppler IMPRESSION: Small echogenic right hydrocele. Is a large right inguinal hernia extending into the scrotum consistent with intraperitoneal fat. Mild dural ectasia right testes otherwise unremarkable right testes and epididymis. Scrotal pole left testes otherwise unremarkable left testes and epididymis. Left inguinal hernia. This was better visualized on the earlier CT abdomen and pelvis exam. Electronically signed by: Brian Huynh MD 06/29/2024 11:48 AM [facility]
--- NOTE | ~2024-06-29 | CT_ITS ---
EXAMINATION: CT ABDOMEN AND PELVIS WITHOUT CONTRAST CLINICAL INFORMATION: Lower abdominal pain/groin pain on the left. COMPARISON: CT abdomen pelvis 02/27/2024 TECHNIQUE: Multidetector volumetric imaging was performed from the superior aspect of the liver through the pubic symphysis. Sagittal and coronal reformatted images were obtained on the technologist's workstation. This CT examination was performed using dose optimization techniques as appropriate, variously including the following: *Automated exposure control *Adjustment of mA and/or kV according to patient size (this includes techniques or standardized protocols for targeted exams where dose is matched to indication/reason for exam; i.e. extremities or head) *Use of iterative reconstruction technique DLP: 542 mGy-cm FINDINGS: LUNG BASES: The visualized lung bases are unremarkable. Heart size is normal. There is mild coronary artery calcification. LIVER, GALLBLADDER, AND BILIARY TREE: The liver is normal in size, shape, and attenuation. No focal hepatic lesion or biliary ductal dilatation is present. The gallbladder is unremarkable with no evidence of radiopaque gallstones, gallbladder wall thickening, or obvious pericholecystic inflammatory changes. PANCREAS: Unremarkable. SPLEEN: Unremarkable. ADRENAL GLANDS: Unremarkable. KIDNEYS AND URETERS: There is partial kidneys without any radiopaque renal calculi or hydroureteronephrosis. There is mild perinephric stranding along the lower pole right kidney, stable. BLADDER: The bladder is mildly distended with a right posterior bladder diverticulum. GASTROINTESTINAL TRACT: There is scattered stool and gas seen throughout the colon without distention. Appendix is normal caliber. Prominent fluid filled small bowel loops are seen without distention. Without The stomach is nondistended. No free air or free fluid seen. ABDOMINAL WALL: There is a left inguinal hernia with a loop of fluid-filled small bowel causing mild obstructive phenomena. A prominent right inguinal canal containing intraperitoneal fat extending to the scrotum is noted. Mild haziness within the proximal mesenteric fat in the right abdomen inferior to right kidney is noted. Question vascular congestion LYMPH NODES: Normal. VASCULAR: There is atherosclerosis of the abdominal aorta without aneurysmal dilatation. PELVIC VISCERA: Prostate gland is moderately enlarged. There are dystrophic calcifications an prominent vessels in the left proximal scrotum. OSSEOUS STRUCTURES: Degenerative disc changes L5-S1 disc level with ventral spondylosis. No aggressive lytic or sclerotic process seen. CT/CT abdomen pelvis wo IV con IMPRESSION: 1. Left inguinal hernia containing a loop of small bowel causing mild obstructive phenomena. 2. Prominent right inguinal canal containing intraperitoneal fat extending to the scrotum and mild fat stranding likely vascular congestion. 3. Mild constipation. 4. 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 5. Dystrophic calcifications and prominent vessels in the left proximal scrotum. 6. Stable horseshoe kidney. Electronically signed by: Brian Huynh MD 06/29/2024 10:03 AM [facility]
--- NOTE | ~2024-06-29 | US_ITS ---
EXAMINATION: US SCROTUM CLINICAL INFORMATION: Scrotal/groin pain. COMPARISON: CT abdomen and pelvis 06/29/2024 at 9:35 AM. TECHNIQUE: A sonogram of the scrotum was performed assessing martinez-scale appearance and color Doppler flow. Spectral Doppler analysis of the arterial and venous flow were performed in the testes bilaterally. FINDINGS: RIGHT: Right testicle measures 3.7 x 2.3 x 3.2 cm, volume 14.2 mL. No focal testicular parenchymal lesions are visualized except for multiple hyperechoic linear areas in posterior pole of testes suggestive of tubular ectasia.. Spectral Doppler analysis of the arterial and venous flow is normal in the right testis. Right epididymal head is normal in size. There is echogenic right hydrocele. No varicocele is seen. Right epididymal Doppler flow is normal. There is a mixed attenuation area in the right inguinal region extending to the right scrotum, likely intraperitoneal fat as seen on CT pelvic exam LEFT: Left testicle measures 4.3 x 1.7 x 3.2 cm, volume 12.1 mL. There is a small hypoechoic left testicular cyst measuring 0.26 x 0.26 x 0.33 cm. There is a small echogenic 0.24 x 0.12 x 0.28 cm lesion likely a small scrotal pia. Spectral Doppler analysis of the arterial and venous flow is normal in the left testis. Left epididymal head is normal in size. No left hydrocele or varicocele is seen. Left epididymal Doppler flow is normal. Incidental finding of a large lesion/mass in the left inguinal region with adjacent free fluid. It is avascular and measures 4.0 x 4.0 by is 3.[address] it represented as a left inguinal hernia with a loop of small bowel within US/US scrotum IMPRESSION: Small echogenic right hydrocele. Is a large right inguinal hernia extending into the scrotum consistent with intraperitoneal fat. Mild dural ectasia right testes otherwise unremarkable right testes and epididymis. Scrotal pole left testes otherwise unremarkable left testes and epididymis. Left inguinal hernia. This was better visualized on the earlier CT abdomen and pelvis exam. Electronically signed by: Brian Huynh MD 06/29/2024 11:48 AM [facility] [place]
--- NOTE | 2024-06-29 09:05 | ED_ITS ---
HPI - Abdominal Pain General Chief Complaint: Abdominal Pain Stated Complaint: lower abd pain Time Seen by Provider: 06/29/24 09:02 Source: patient Mode of arrival: ambulatory Limitations: no limitations History of Present Illness ED Provider: KIMO Beltre HPI narrative: 79-year-old male history of vitamin-D deficiency, coronary artery disease, dyslipidemia, hypertension, diabetic neuropathy, diabetes presenting to the emergency department complaints of sudden-onset lower abdominal pain worse on the left-hand side, it seems to radiate into the left groin/testicle region. He reports that he feels a lump in that region. This has never happened to him before. Describes pain as discomfort. Denies associated nausea, vomiting, chest pain, shortness breath, headache, vision changes, dizziness, weakness, changes in bowel habits or urinary habits Related Data Home Medications ?Medication ?Instructions ?Recorded ?Confirmed blood sugar diagnostic #10 ea 06/15/20 06/19/24 coenzyme Q10 75 mg capsule (Ultra 75 mg PO DAILY 04/06/21 06/19/24 CoQ10) glimepiride 2 mg tablet 2 mg PO BID 09/25/23 06/19/24 Previous Rx's ?Medication ?Instructions ?Recorded pen needle, diabetic 32 gauge x 1 ea subcut DAILY 90 days #100 ea 11/23/20 (BD Ultra-Fine Guillermina Pen Needle) cholecalciferol (vitamin D3) 50 50 mcg PO DAILY #90 caps 09/08/21 mcg (2,000 unit) capsule metoprolol succinate 100 mg 100 mg PO DAILY #90 tabs 09/23/21 tablet,extended release 24 hr empagliflozin 25 mg tablet 25 mg PO DAILY 90 days #90 tabs 01/20/22 (Jardiance) metformin 1,000 mg tablet 1,000 mg PO BID 90 days #180 tabs 01/20/22 nitroglycerin 0.4 mg sublingual 0.4 mg sublingual Q5M PRN chest 11/24/22 tablet pain #30 tabs isosorbide mononitrate 60 mg 30 mg (1/2 x 60 mg) PO BID-TID #90 10/17/23 tablet,extended release 24 hr tabs lisinopril 5 mg tablet 5 mg PO DAILY #90 tabs 11/16/23 atorvastatin 80 mg tablet 80 mg PO BEDTIME #90 tabs 04/04/24 Allergies Allergy/AdvReac Type Severity Reaction Status Date / Time No Known Allergies Allergy Unknown UNKNOWN Verified 06/29/24 08:47 [NO KNOWN ALLERGIES] Review of Systems Review of Systems Yes all other systems are reviewed and are negative [facility]LY [facility] Past Medical History Attestation statement: The following information was validated with the patient. Source: old records reviewed and nursing notes reviewed Medical History Vitamin D deficiency Overweight (BMI 25.0-29.9) CAD (coronary artery disease) Dyslipidemia Hypertension Diabetic nephropathy associated with type 2 diabetes mellitus Diabetes type 2, uncontrolled Surgical History Stented coronary artery History of prostate surgery Hx of cardiac cath Family History Family History Father No problems noted. Mother No problems noted. Maternal Uncle Diabetes mellitus Social History Social History Household Members: Family Alcohol intake: current Alcohol intake frequency: a few times a month Alcohol type: beer Patient Tobacco Use Status: Never used Tobacco Smoked in Last 30 Days: No Use of substances other than those prescribed or required for medical reasons: Yes Substance Use Type: Marijuana Advance Directives: No Advance Directives Information Provided: No Do you have a plan to hurt others: No Plan Physical Exam ED Vital Signs: Vital Signs - 24 hr 06/29/24 08:45 06/29/24 09:25 06/29/24 09:27 Temperature 97 F Pulse Rate 84 78 Respiratory Rate 15 16 17 Blood Pressure 141/66 H Pulse Oximetry 99 Oxygen Delivery Method Nasal Cannula 06/29/24 09:39 Temperature Pulse Rate 75 Respiratory Rate 19 Blood Pressure 138/75 Pulse Oximetry Oxygen Delivery Method BMI result Body Mass Index 24.4 vss Appearance: Alert.? Oriented X3.? No acute distress.? Head: Normocephalic, atraumatic, no step-offs or deformities Eyes: Pupils equal, round and reactive to light.? ENT: Pharynx normal.? Neck: Normal inspection.? Neck supple.? CVS: Normal heart rate and rhythm.? Pulses normal.? Respiratory: No respiratory distress.? Breath sounds normal.? Abdomen: Soft and significant discomfort in the left lower quadrant with a large lump overlying the mons pubis on the left concerning for hernia. Patient having significant discomfort in that region and I am unable to reduce hernia Unable to palpate any lumps or bumps or hernias. Skin: Skin warm and dry.? Normal skin color.? Normal skin turgor.? Extremities: No lower extremity edema.? No calf ttp. 5/5 strength to bilateral upper and lower extremities Neuro: Oriented X 3.? No motor deficit.? No sensory deficit. CN 2-12 intact Course Reevaluation(s) Reevaluation #1: CBC unremarkable. Chemistry pending. Ct scan concerning for incarcerated hernia, surgeon Dr. Florentino will come down and see patient. NPO at this time Time: 10:15 Reevaluation #2: Brittany will be admitted by Dr. Trimble. Time: 12:53 Medical Decision Making Medical Decision Making [facility] Narrative: This is an 79-year-old male presenting for lower abdominal discomfort worse on the left hand side and radiates into his groin/testicle region also feels a lump in that region. Physical exam with significant discomfort in the left lower quadrant with a large lump overlying the mons pubis on the left concerning for hernia. Patient having significant discomfort in that region and I am unable to reduce hernia Unable to palpate any lumps or bumps or hernias. History and physical exam concerning for incarcerated hernia versus diverticulitis versus viral illness. Unlikely torsion, obstruction, pancreatitis, appendicitis, acute abdomen. Will rule out kidney stone. Plan labs, imaging, urine Differential Diagnosis Differential Diagnoses: The differential diagnosis associated with the presentation includes (History and physical exam concerning for incarcerated hernia versus diverticulitis versus viral illness. Unlikely torsion, obstruction, pancreatitis, appendicitis, acute abdomen. Will rule out kidney stone.) Admission/Observation Consideration of admission/observation: Escalation of care including admission/observation considered Lab Data [facility] Lab Attestation statement: I reviewed the patient's lab results. 06/29/24 09:21 06/29/24 09:54 Labs: Lab Results 06/29/24 06/29/24 Range/Units 09:21 09:54 WBC 8.4 (4.8-10.8) X10*3/uL RBC 4.16 L (4.60-5.80) X10*6/uL Hgb 14.1 (14.0-18.0) g/dl Hct 40.7 L (42.0-52.0) % MCV 97.8 (80.0-98.0) fL MCH 33.9 H (27.0-33.0) pg MCHC 34.6 (31.0-36.0) g/dl RDW 13.5 (11.0-16.0) % Plt Count 254 (160-400) X10*3/uL MPV 9.0 L (9.4-12.4) fL Immature Gran % (Auto) 0.5 H (0.0-0.4) % Neut % (Auto) 76.8 H (45-73) % Lymph % (Auto) 17.1 L (20-40) % Whiteside % (Auto) 4.4 (2-11) % Eos % (Auto) 0.6 (0-4) % Baso % (Auto) 0.6 (0-2) % Lymph # (Auto) 1.4 (1.2-4.9) X10*3/uL Whiteside # (Auto) 0.4 (0.1-1.2) X10*3/uL Eos # (Auto) 0.1 (0.0-0.4) X10*3/uL Baso # (Auto) 0.1 (0.0-0.2) X10*3/uL Abs Immat Gran (auto) 0.04 H (0.00-0.03) X10*3/uL Absolute Neuts (auto) 6.5 (2.0-8.3) x10*3/uL Absolute Nucleated RBC 0.000 (0.0-0.012) X10*3/uL Nucleated RBC % (auto) 0.0 (0.0-0.2) /100WBC PT 11.8 (10.9-12.4) SEC INR 1.0 (0.9-1.1) Sodium 139 (135-145) mmol/L Potassium 4.0 (3.3-5.1) mmol/L Chloride 106 (96-108) mmol/L Carbon Dioxide 18 L (22-29) mmol/L Anion Gap 19 (12-20) BUN 14 (9-16) mg/dL Creatinine 0.80 (0.5-1.4) mg/dL Estim Creat Clear Calc 68.8 Estimated GFR > 60 Random Glucose 213 H (60-115) mg/dL Calcium 9.5 (8.4-10.2) mg/dL Magnesium 2.1 (1.6-2.6) mg/dL Total Bilirubin 0.6 (0.0-1.0) mg/dL AST 22 (5-37) U/L ALT 17 (0-40) U/L Alkaline Phosphatase 74 (39-117) U/L Total Protein 7.1 (6.5-8.0) g/dL Albumin 4.4 (3.5-5.0) g/dL Lipase 32 (8-78) U/L Independent Interpretation I performed an independent interpretation of an: Ultrasound and CT Scan (CT/CT abdomen pelvis wo IV con IMPRESSION: 1. Left inguinal hernia containing a loop of small bowel causing mild obstructive phenomena. 2. Prominent right inguinal canal containing intraperitoneal fat extending to the scrotum and mild fat stranding likely vascular congestion. 3. Mild constipat) Radiology Impression Discussion of test interpretation with radiology: I have reviewed the radiologist's reading. External Record Review External record reviewed: Office record, Outpatient record, Prior outpatient labs and Prior outpatient radiology Chronic Conditions Patient?s care impacted by: Other (see hpi ) Medications Administered Generic Name Dose Route Start Last Admin Trade Name Freq PRN Reason Stop Dose Admin Lactated Ringer's 1,000 mls @ 100 mls/hr 06/29/24 11:00 06/29/24 11:36 Lr IVCONT 100 mls/hr .Q10H GIFTY Administration Discontinued Medications Generic Name Dose Route Start Last Admin Trade Name Freq PRN Reason Stop Dose Admin Morphine Sulfate 4 mg 06/29/24 09:15 06/29/24 09:25 Morphine Sulfate 4 Mg/Ml Cartridge IVPUSH 06/29/24 09:16 4 mg ONCE ONE Administration Protocol Critical Care Time Critical Care Time Critical Care Time: Yes Total Critical Care Time: 35 Attestation: I attest to this time spent taking care of the patient, obtaining history, physical, reviewing labs, imaging, treatment of patients condition +/- specialist/hospitalist consult Discharge Plan Discharge Clinical Impression: Incarcerated hernia Patient Disposition: Admitted As Inpatient
[2024-06-29 09:25] LABS: MANUAL DIFF FLAG NO
[2024-06-29] MEDS: Morphine Sulfate 4 MG/ML CARTRIDGE IVPUSH (09:25)
[2024-06-29 09:27] LABS: Basophils Absolute Auto 0.1 X10*3/uL (0.0-0.2); Basophils Percent Auto 0.6 % (0-2); Eosinophils Absolute Auto 0.1 X10*3/uL (0.0-0.4); Eosinophils Percent Auto 0.6 % (0-4); Hematocrit 40.7 % (42.0-52.0); Hemoglobin 14.1 g/dl (14.0-18.0); Imm Gran Abs Auto 0.04 X10*3/uL (0.00-0.03); Imm Gran Pct Auto 0.5 % (0.0-0.4); Lymphocytes Absolute Auto 1.4 X10*3/uL (1.2-4.9); Lymphocytes Percent Auto 17.1 % (20-40); Mean Corpuscular HGB Conc 34.6 g/dl (31.0-36.0); Mean Corpuscular Hemoglobin 33.9 pg (27.0-33.0); Mean Corpuscular Volume 97.8 fL (80.0-98.0); Monocytes Absolute Auto 0.4 X10*3/uL (0.1-1.2); Monocytes Percent Auto 4.4 % (2-11); Neutrophils Absolute Auto 6.5 x10*3/uL (2.0-8.3); Neutrophils Percent Auto 76.8 % (45-73); Platelet Count 254 X10*3/uL (160-400); Red Blood Count 4.16 X10*6/uL (4.60-5.80); Red Cell Distribution Width 13.5 % (11.0-16.0); White Blood Count 8.4 X10*3/uL (4.8-10.8)
--- NOTE | 2024-06-29 10:05 | PC.NURSE ---
Pt presents to ED from home, reports lower ABD/groin pain X12 hours worsening. Denies CP, SOB, N/V/D. Pain worsens with movement and palpation. Alert and oriented, breathing even and unlabored.
[2024-06-29 10:07] LABS: Prothrombin Time 11.8 SEC (10.9-12.4)
[2024-06-29 10:29] LABS: Alanine Aminotransferase 17 U/L (0-40); Albumin Level 4.4 g/dL (3.5-5.0); Alkaline Phosphatase 74 U/L (39-117); Anion Gap 19 (12-20); Aspartate Amino Transferase 22 U/L (5-37); Bilirubin Total 0.6 mg/dL (0.0-1.0); Blood Urea Nitrogen 14 mg/dL (9-16); Calcium 9.5 mg/dL (8.4-10.2); Carbon Dioxide 18 mmol/L (22-29); Chloride 106 mmol/L (96-108); Creatinine Clr Calc Pharmacy 68.8; Estimated Glomerular Filt Rate > 60; Glucose Random 213 mg/dL (60-115); Lipase 32 U/L (8-78); Magnesium 2.1 mg/dL (1.6-2.6); Sodium 139 mmol/L (135-145); Total Protein 7.1 g/dL (6.5-8.0)
--- NOTE | 2024-06-29 10:50 | PC.NURSE ---
Plan for poss surgery tomorrow. NPO
--- NOTE | 2024-06-29 10:58 | PM.HPGS ---
History of Present Illness History of Present Illness Date of Service: 06/29/24 Chief complaint: lower abd pain Narrative: Alhaji Underwood is a 79 year old male presenting with a 24 hour history of pain in the left groin. He has known about bilateral inguinal hernias for many years but has remained relatively asymptomatic. He reports losing weight recently but denies any inciting event prior to the onset of left groin pain. He reports feeling a hard lump in the left groin which was painful to the touch. He denies straining to have a bowel movement. He denies a previous history of hernia surgery. Workup in the emergency department revealed a non reducible left inguinal hernia. CT abdomen and pelvis confirmed bilateral inguinal hernias with a fat containing right inguinal hernia and left inguinal hernia containing a loop of small bowel with findings suggestive of obstruction. He reports a past history of diabetes and coronary artery disease. He is being admitted to the surgical service in anticipation of repair of this incarcerated left inguinal hernia after medical optimization. Review of Systems Review of Systems: Yes all other systems are reviewed and are negative Constitutional: Constitutional: Denies chills, Denies fever(s), Denies headache(s), Denies poor appetite and Denies weakness ENT: Denies headache(s) Cardiovascular: Cardiovascular: Denies chest pain, Denies irregular heart rhythm, Denies palpitations and Denies dyspnea Respiratory: Respiratory: Denies cough, Denies excessive phlegm production and Denies dyspnea Gastrointestinal: Gastrointestinal: Denies abdominal pain, Denies bloating, Denies change in bowel habits, Denies constipation, Denies heartburn, Denies diarrhea, Denies nausea and Denies vomiting Genitourinary: Genitourinary: Denies difficulty urinating and Denies urinary frequency Musculoskeletal: Musculoskeletal: Denies back pain, Denies muscle weakness and Denies numbness Integumentary/Breasts: Skin/Breast: Denies changing lesions and Denies unusual bruising Neurologic: Denies headache(s), Denies numbness, Denies paresthesias and Denies weakness Psychiatric: Psychiatric: Denies anxiety and Denies depression Endocrine: Endocrine: Denies palpitations Hematologic/Lymphatic: Hematologic/Lymphatic: Denies lymphadenopathy [facility] Past Medical History Medical History Vitamin D deficiency Overweight (BMI 25.0-29.9) CAD (coronary artery disease) Dyslipidemia Hypertension Diabetic nephropathy associated with type 2 diabetes mellitus Diabetes type 2, uncontrolled Family History Family History Father No problems noted. Mother No problems noted. Maternal Uncle Diabetes mellitus Surgical History Surgical History Stented coronary artery History of prostate surgery Hx of cardiac cath Social History Social History Household Members: Family Alcohol intake: current Alcohol intake frequency: a few times a month Alcohol type: beer Patient Tobacco Use Status: Never used Tobacco Smoked in Last 30 Days: No Use of substances other than those prescribed or required for medical reasons: Yes Substance Use Type: Marijuana Advance Directives: No Advance Directives Information Provided: No Do you have a plan to hurt others: No Plan Meds Allergies Allergy/AdvReac Type Severity Reaction Status Date / Time No Known Allergies Allergy Unknown UNKNOWN Verified 06/29/24 08:47 [NO KNOWN ALLERGIES] Active Medications: Current Medications Hydromorphone HCl (Hydromorphone Hcl 0.5 Mg/0.5 Ml Syringe) 0.5 mg IVPUSH Q3H PRN; Protocol PRN Reason: Pain, Severe (Pain Scale 7-10) Lactated Ringer's (Lr) 1,000 mls @ 100 mls/hr IVCONT .Q10H GIFTY Ondansetron HCl (Ondansetron Hcl 4 Mg/2 Ml Vial) 4 mg IVPUSH QID PRN PRN Reason: Nausea Sodium Chloride (0.9 % Sodium Chloride Flush 3 Ml Syringe) 3 ml IVFLUSH QSHIFT [facility] Home Medications ?Medication ?Instructions ?Recorded ?Confirmed ?Last Taken ?Type blood sugar diagnostic #10 ea 06/15/20 06/19/24 Unknown History coenzyme Q10 75 mg capsule (Ultra 75 mg PO DAILY 04/06/21 06/19/24 Unknown History CoQ10) glimepiride 2 mg tablet 2 mg PO BID 09/25/23 06/19/24 Unknown History Physical Exam Vital Signs: Vital Signs: Last Vital Signs Temp 97 F 06/29/24 08:45 Pulse 75 06/29/24 09:39 Resp 19 06/29/24 09:39 BP 138/75 06/29/24 09:39 Pulse Ox 99 06/29/24 08:45 O2 Del Method Nasal Cannula 06/29/24 08:45 BMI result Body Mass Index 24.4 Const: General: cooperative and no acute distress Nutritional Appearance: well nourished Orientation/consciousness: patient oriented x3 Limitations: no limitations HEENT: Head: Yes normocephalic and Yes atraumatic Ears: hearing grossly normal bilaterally Resp: Effort & Inspection: normal respiratory effort, no audible wheezes, no cough and no respiratory distress Cardio: Jugular venous distension: no JVD GI: Other: Palpable left and right inguinal hernia, tender in the left groin with light pressure. Attempts at reduction of this left inguinal hernia or unsuccessful. Inspection: Yes normal to inspection Palpation (GI): Soft to palpation, nontender, no guarding and not rigid Skin: Other: Warm, dry, no rash Neuro: General: patient oriented x3 Extrem: General: Yes no clubbing, cyanosis or edema Results Results Labs: Short CBC 06/29/24 Range/Units 09:21 WBC 8.4 (4.8-10.8) X10*3/uL Hgb 14.1 (14.0-18.0) g/dl Hct 40.7 L (42.0-52.0) % Plt Count 254 (160-400) X10*3/uL BMP 06/29/24 09:54 Sodium 139 Potassium 4.0 Chloride 106 Carbon Dioxide 18 L BUN 14 Creatinine 0.80 Calcium 9.5 Liver Function 06/29/24 Range/Units 09:54 Total Bilirubin 0.6 (0.0-1.0) mg/dL AST 22 (5-37) U/L ALT 17 (0-40) U/L Alkaline Phosphatase 74 (39-117) U/L Albumin 4.4 (3.5-5.0) g/dL Abdomen CT scan report/results: image reviewed CT scan - pelvis: image reviewed Assessment and Plan (1) Incarcerated hernia: Status: Acute Plan 79-year-old male patient with multiple medical problems presenting with an incarcerated left inguinal hernia of new onset. Patient has discomfort when the hernia is attempted to be reduced. He will require repair of this incarcerated left inguinal hernia. Because of his multiple medical issues I recommended admission with hospitalist consultation with possible surgery tomorrow morning for repair of this incarcerated left inguinal hernia. After discussion of the procedure, risks, and alternatives, he consents to repair of the incarcerated left inguinal hernia with mesh. Quality Stroke Does the patient have a stroke diagnosis?: No VTE Prior VTE?: No VTE Risk Level:: Surgical - moderate VTE Device Contraindication: N/A - Device Ordered VTE Drug Contraindication: Treatment Not Indicated Procedures Date of Service Date of Service: 06/29/24
--- NOTE | 2024-06-29 11:07 | P.CONHOSP_ITS ---
History of Present Illness Data of Consult Service Date: 06/29/24 Primary Care Provider: KIMO Muñoz HPI 79 year old male with Diabetes type 2, hypertension, hyperlipidemia, coronary artery disease with diffuse atherosclerosis and LAD stenting in the past, however is not describing angina symptoms at this time, last stress test in august 2023 showed 1. Moderately large area of partially reversible defect in RCA/circumflex territory suggestive of ischemia. He presented today with lower abdominal pain and lump in the groin. Work up has revealed an incarcerated hernia and is admitted to surgery with possible planned surgery tomorrow. He denies angina, BAILON and leg edema and reports good exercise tolerance. Review of Systems 2 Review of Systems: Gen: no fever Resp: no sob, no cough CV: no chest, no BAILON, no leg edema GI: No n/v, no abd pain Neuro: No confusion Yes all other systems are reviewed and are negative [facility] Medical History Vitamin D deficiency Overweight (BMI 25.0-29.9) CAD (coronary artery disease) Dyslipidemia Hypertension Diabetic nephropathy associated with type 2 diabetes mellitus Diabetes type 2, uncontrolled Family History Father No problems noted. Mother No problems noted. Maternal Uncle Diabetes mellitus Surgical History Stented coronary artery History of prostate surgery Hx of cardiac cath Social History Household Members: Family Alcohol intake: current Alcohol intake frequency: a few times a month Alcohol type: beer Patient Tobacco Use Status: Never used Tobacco Smoked in Last 30 Days: No Use of substances other than those prescribed or required for medical reasons: Yes Substance Use Type: Marijuana Advance Directives: No Advance Directives Information Provided: No Do you have a plan to hurt others: No Plan Meds Allergies Allergy/AdvReac Type Severity Reaction Status Date / Time No Known Allergies Allergy Unknown UNKNOWN Verified 06/29/24 08:47 [NO KNOWN ALLERGIES] Active Medications: Current Medications Hydromorphone HCl (Hydromorphone Hcl 0.5 Mg/0.5 Ml Syringe) 0.5 mg IVPUSH Q3H PRN; Protocol PRN Reason: Pain, Severe (Pain Scale 7-10) Lactated Ringer's (Lr) 1,000 mls @ 100 mls/hr IVCONT .Q10H GIFTY Ondansetron HCl (Ondansetron Hcl 4 Mg/2 Ml Vial) 4 mg IVPUSH QID PRN PRN Reason: Nausea Sodium Chloride (0.9 % Sodium Chloride Flush 3 Ml Syringe) 3 ml IVFLUSH QSHIFT GIFTY Home Medications ?Medication ?Instructions ?Recorded ?Confirmed ?Last Taken ?Type blood sugar diagnostic #10 ea 06/15/20 06/19/24 Unknown History coenzyme Q10 75 mg capsule (Ultra 75 mg PO DAILY 04/06/21 06/19/24 Unknown History CoQ10) glimepiride 2 mg tablet 2 mg PO BID 09/25/23 06/19/24 Unknown History Physical Exam 2 Vital Signs and Narrative: Vital Signs: Last Vital Signs Temp 97 F 06/29/24 08:45 Pulse 75 06/29/24 09:39 Resp 19 06/29/24 09:39 BP 138/75 06/29/24 09:39 Pulse Ox 99 06/29/24 08:45 O2 Del Method Nasal Cannula 06/29/24 08:45 BMI result Body Mass Index 24.4 Const: Other: General: AO X 3, no acute distress Resp: CTA bilateral CVS: S1,S2,RRR, no JVD GI: +BS, NT, no distention Skin: No rash Neuro: motor grossly intact Psych: appropriate affect Results Labs 06/29/24 09:21 06/29/24 09:54 Labs: Laboratory Results - last 24 hr 06/29/24 06/29/24 09:21 09:54 MCV 97.8 MCH 33.9 H MCHC 34.6 RDW 13.5 Plt Count 254 MPV 9.0 L Immature Gran % (Auto) 0.5 H Neut % (Auto) 76.8 H Lymph % (Auto) 17.1 L Jennings % (Auto) 4.4 Eos % (Auto) 0.6 Baso % (Auto) 0.6 Lymph # (Auto) 1.4 Jennings # (Auto) 0.4 Eos # (Auto) 0.1 Baso # (Auto) 0.1 Abs Immat Gran (auto) 0.04 H Absolute Neuts (auto) 6.5 Absolute Nucleated RBC 0.000 Nucleated RBC % (auto) 0.0 PT 11.8 INR 1.0 Anion Gap 19 Estim Creat Clear Calc 68.8 Estimated GFR > 60 Random Glucose 213 H Calcium 9.5 Magnesium 2.1 Total Bilirubin 0.6 AST 22 ALT 17 Alkaline Phosphatase 74 Total Protein 7.1 Albumin 4.4 Lipase 32 Imaging Radiologist's Impressions: Impressions Abdomen/Pelvis CT 06/29/24 09:32 IMPRESSION: 1. Left inguinal hernia containing a loop of small bowel causing mild obstructive phenomena. 2. Prominent right inguinal canal containing intraperitoneal fat extending to the scrotum and mild fat stranding likely vascular congestion. 3. Mild constipation. 4. 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 5. Dystrophic calcifications and prominent vessels in the left proximal scrotum. 6. Stable horseshoe kidney. Electronically signed by: Brian Huynh MD 06/29/2024 10:03 AM [facility] Assessment and Plan (1) Pre-op evaluation: Status: Acute Plan 79 year old male with Diabetes type 2, hypertension, hyperlipidemia, coronary artery disease with diffuse atherosclerosis and LAD stenting in the past, however is not describing angina symptoms at this time, last stress test in august 2023 showed 1. Moderately large area of partially reversible defect in RCA/circumflex territory suggestive of ischemia. He is admitted for incarcerated hernia repair.. Incarcerated hernia, for surgical repair. His RCRI score is 1, but despite the score, the moderately large area of partially reversible ischemia noted on the August 2023 stress test is concerning. Although he has no current angina, or heart failure symptoms this finding may necessitate further perioperative evaluation e.g., cardiology consultation or stress testing if time permits, however the surgery appear urgent and therefore not further testing indicated at this time, however ECG should be obtained. Continue cardioprotective meds including beta-jah continuation Diabetes--hold oral medication, SSI HTN--continue metoprolol and lisinopril CAD, no angina, continue Imdure, metoprolol , lipitor\ Will review med rec once confirmed by Pharmacy
[2024-06-29] MEDS: Lactated Ringers 1,000 ML 100 ML IVCONT (11:36)
--- NOTE | 2024-06-29 11:36 | PC.NURSE ---
- Padma Wilson phone [phone]
--- NOTE | 2024-06-29 11:42 | PC.NURSE ---
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
[2024-06-29 12:48] LABS: Glucose, Whole Blood 159 mg/dL (60-115)
--- NOTE | 2024-06-29 13:08 | PC.NURSE ---
this nurse contacted Dr. Florentino as the patient is NPO and his POC is 159, this nurse asked if we should hold the 2u insulin since the patient is NPO. Per Dr. Florentino via tiger text- he requested a hospitalist consult and states to defer to them, hold the insulin until they decide.
--- NOTE | 2024-06-29 13:20 | PHA.MEDREC ---
Pharmacy Consult ? Medication Reconciliation Pharmacy has completed the medication reconciliation. Spoke to patient and confirmed medication list. Patient confirmed he takes isosorbide 60 mg as half a tablet twice a day, lisinopril 5 mg daily @1900, metformin 1000 mg bid, metoprolol succ 100 mg daily @1900 (but he took today's dose already in the morning) and trulicity 1.5 mg once a week on monday. Last dose of most medications was today in the morning.
--- NOTE | 2024-06-29 14:02 | PC.NURSE ---
Insulin Dr. Luong to change sliding scale as he wishes the patient to not have insulin if his poc is under 200.
[2024-06-29 16:18] LABS: Glucose, Whole Blood 102 mg/dL (60-115)
[2024-06-29] MEDS: lisinopriL 5 MG TABLET PO (18:13)
[2024-06-29] MEDS: Docusate Sodium 100 MG CAPSULE PO (20:31)
[2024-06-29] MEDS: Atorvastatin Calcium 80 MG TABLET PO (20:31)
[2024-06-29] MEDS: Isosorbide Mononitrate 30 MG TAB.ER.24H PO (20:31)
[2024-06-29] MEDS: Glucose Gel 15 GM GEL..GRAM. PO (20:39)
[2024-06-29 20:45] LABS: Glucose, Whole Blood 54 mg/dL (60-115)
[2024-06-29 21:06] LABS: Glucose, Whole Blood 77 mg/dL (60-115)
[2024-06-29] MEDS: Dextrose 5 % and Lactated Ring 1,000 ML 80 ML IVCONT (21:25)
--- NOTE | 2024-06-29 21:27 | PC.NURSE ---
blood sugar was 54.pt given glucose gel 15 grams po at 2038 and blood sugar rechecked at 2099 was 77. was notified and IV fliuds changed to d5LR at 80/hr.
[2024-06-29 23:38] LABS: Glucose, Whole Blood 79 mg/dL (60-115)
[2024-06-30] VITALS (9 sets, daily range): BP systolic 102–157; BP diastolic 55–78; PULSE 62–81; RESP 15–18; TEMP 36.1–37.1; O2SAT 94–100
--- NOTE | 2024-06-30 | ECG_ITS ---
Test Reason : post op evaluation Blood Pressure : / mmHG Vent. Rate : 067 BPM Atrial Rate : 067 BPM P-R Int : 184 ms QRS Dur : 094 ms QT Int : 416 ms P-R-T Axes : 060 047 055 degrees QTc Int : 439 ms Normal sinus rhythm Low voltage QRS Borderline ECG When compared with ECG of 21-JUL-2023 12:50, No significant change was found Referred By: Chance Florentino Electronically Signed By:ЕКАТЕРИНА CERVANTES MD
--- NOTE | 2024-06-30 05:56 | MHC.SHP ---
Pre-Procedural Eval Section A - 24 Hr Update-Section A only Date of Service: 06/30/24 The patient is an INPATIENT: Yes Section B - Complete if H&P > 30 days Chief Complaint: Incarcerated left inguinal hernia Allergies: Allergies Allergy/AdvReac Type Severity Reaction Status Date / Time No Known Allergies Allergy Unknown UNKNOWN Verified 06/29/24 08:47 [NO KNOWN ALLERGIES] Plan Diagnosis/Plan: Unchanged I have reviewed the history and physical and performed a pertinent physical examination on my patient. No changes have occurred unless specified. Time Spent With Patient Time: Total time managing care of this patient today ____ minutes.
[2024-06-30 06:00] LABS: Glucose, Whole Blood 96 mg/dL (60-115)
[2024-06-30 07:55] LABS: Glucose, Whole Blood 98 mg/dL (60-115)
--- NOTE | 2024-06-30 08:17 | P.CONAN_ITS ---
HPI - Anesthesia Eval Consult details Narrative: Incarcerated inguinal hernia PMFSH Active Problems Active Problems: All Active Problems Pre-op evaluation (Acute) Incarcerated hernia (Acute) Hx of cardiac cath (Acute) Stented coronary artery (Acute) Chest discomfort (Acute) Vitamin D deficiency (Acute) Overweight (BMI 25.0-29.9) (Acute) CAD (coronary artery disease) (Acute) Dyslipidemia (Acute) Hypertension (Acute) Diabetic nephropathy associated with type 2 diabetes mellitus (Acute) Diabetes type 2, uncontrolled (Acute) Past Medical History Medical History Vitamin D deficiency Overweight (BMI 25.0-29.9) CAD (coronary artery disease) Dyslipidemia Hypertension Diabetic nephropathy associated with type 2 diabetes mellitus Diabetes type 2, uncontrolled Family History Family History Father No problems noted. Mother No problems noted. Maternal Uncle Diabetes mellitus Family history of problems with anesthesia: No Surgical History Surgical History Stented coronary artery History of prostate surgery Hx of cardiac cath History of Problems with Anesthesia: No Social History Social History Household Members: Spouse Housing: House Do you presently have visiting nurse or other home services: No Alcohol intake: current Alcohol intake frequency: a few times a month Alcohol type: beer Patient Tobacco Use Status: Former Tobacco user Second Hand Smoke Exposure: No Substance Use Type: Marijuana Meds Allergies Allergy/AdvReac Type Severity Reaction Status Date / Time No Known Allergies Allergy Unknown UNKNOWN Verified 06/29/24 08:47 [NO KNOWN ALLERGIES] Active Medications: Current Medications Atorvastatin Calcium (Atorvastatin Calcium 80 Mg Tablet) 80 mg PO BEDTIME [facility] Last Admin: 06/29/24 20:31 Dose: 80 mg Docusate Sodium (Docusate Sodium 100 Mg Capsule) 100 mg PO BEDTIME [facility] Last Admin: 06/29/24 20:31 Dose: 100 mg Glucose (Glucose Gel 15 Gm Gel..Gram.) 15 gm PO Q15M PRN; Protocol PRN Reason: per Hypoglycemia Standing Ord. Last Admin: 06/29/24 20:39 Dose: 15 gm Hydromorphone HCl (Hydromorphone Hcl 0.5 Mg/0.5 Ml Syringe) 0.5 mg IVPUSH Q3H PRN; Protocol PRN Reason: Pain, Severe (Pain Scale 7-10) Lactated Ringer's (Lr) 1,000 mls @ 100 mls/hr IVCONT .Q10H [facility] Last Admin: 06/30/24 08:03 Dose: Not Given Dextrose (D10) 250 mls @ 750 mls/hr IV Q15M PRN; Protocol PRN Reason: per Hypoglycemia Standing Ord. Dextrose/Lactated Ringer's (D5lr) 1,000 mls @ 80 mls/hr IVCONT .[id number] [facility] Last Infusion: 06/30/24 08:13 Dose: 0 mls/hr Insulin Human Lispro (Insulin Lispro 100 Unit/Ml 3 Ml Vial) 0 unit SUBCUT QIDACHS [facility]; Protocol Last Admin: 06/30/24 08:02 Dose: Not Given Isosorbide Mononitrate (Isosorbide Mononitrate 30 Mg Tab.Er.24h) 30 mg PO BID [facility]; Protocol Last Admin: 06/29/24 20:31 Dose: 30 mg Lisinopril (Lisinopril 5 Mg Tablet) 5 mg PO DAILY@1900 [facility]; Protocol Last Admin: 06/29/24 18:13 Dose: 5 mg Metoprolol Succinate (Metoprolol Succinate Er 100 Mg Tab.Er.24h) 100 mg PO DAILY@1900 [facility]; Protocol Nitroglycerin (Nitroglycerin 0.4 Mg Tab.Subl) 0.4 mg SUBLINGUAL Q5M PRN PRN Reason: chest pain Ondansetron HCl (Ondansetron Hcl 4 Mg/2 Ml Vial) 4 mg IVPUSH QID PRN PRN Reason: Nausea Sodium Chloride (0.9 % Sodium Chloride Flush 3 Ml Syringe) 3 ml IVFLUSH QSHIFT [facility] Last Admin: 06/30/24 08:03 Dose: Not Given Vitamin D (Cholecalciferol (Vitamin D3) 25 Mcg Tablet) 50 mcg PO DAILY [facility] Home Medications ?Medication ?Instructions ?Recorded ?Confirmed ?Last Taken ?Type blood sugar diagnostic #10 ea 06/15/20 06/19/24 Unknown History coenzyme Q10 75 mg capsule (Ultra 75 mg PO DAILY 04/06/21 06/29/24 06/29/24 History CoQ10) glimepiride 2 mg tablet 2 mg PO BID 09/25/23 06/29/24 06/29/24 History dulaglutide 1.5 mg/0.5 mL 1.5 mg subcut WE 06/29/24 06/29/24 06/26/24 History subcutaneous pen injector (Trulicity) isosorbide mononitrate 60 mg 30 mg PO BID 06/29/24 06/29/24 06/29/24 History tablet,extended release 24 hr lisinopril 5 mg tablet 5 mg PO DAILY@1900 06/29/24 06/29/24 06/28/24 History metoprolol succinate 100 mg 100 mg PO DAILY@1900 06/29/24 06/29/24 06/29/24 History tablet,extended release 24 hr Exam Height,Weight and Vital Signs: Height 5 ft 7 in Weight 70.76 kg Last Vital Signs Temp 97.8 F 06/30/24 07:42 Pulse 72 06/30/24 07:42 Resp 16 06/30/24 07:42 BP 127/70 06/30/24 07:42 Pulse Ox 97 06/30/24 07:42 O2 Del Method Room Air 06/30/24 07:42 Pertinent Lab Results Pertinent Lab Results: Laboratory Tests 06/29/24 06/29/24 06/29/24 09:21 09:54 12:44 WBC 8.4 RBC 4.16 L Hgb 14.1 Hct 40.7 L MCV 97.8 MCH 33.9 H MCHC 34.6 RDW 13.5 Plt Count 254 MPV 9.0 L Immature Gran % (Auto) 0.5 H Neut % (Auto) 76.8 H Lymph % (Auto) 17.1 L [place] % (Auto) 4.4 Eos % (Auto) 0.6 Baso % (Auto) 0.6 Lymph # (Auto) 1.4 [place] # (Auto) 0.4 Eos # (Auto) 0.1 Baso # (Auto) 0.1 Abs Immat Gran (auto) 0.04 H Absolute Neuts (auto) 6.5 Absolute Nucleated RBC 0.000 Nucleated RBC % (auto) 0.0 PT 11.8 INR 1.0 Sodium 139 Potassium 4.0 Chloride 106 Carbon Dioxide 18 L Anion Gap 19 BUN 14 Creatinine 0.80 Estim Creat Clear Calc 68.8 Estimated GFR > 60 POC Glucose 159 H Random Glucose 213 H Calcium 9.5 Magnesium 2.1 Total Bilirubin 0.6 AST 22 ALT 17 Alkaline Phosphatase 74 Total Protein 7.1 Albumin 4.4 Lipase 32 06/29/24 06/29/24 06/29/24 16:12 20:36 21:02 WBC RBC Hgb Hct MCV MCH MCHC RDW Plt Count MPV Immature Gran % (Auto) Neut % (Auto) Lymph % (Auto) [place] % (Auto) Eos % (Auto) Baso % (Auto) Lymph # (Auto) [place] # (Auto) Eos # (Auto) Baso # (Auto) Abs Immat Gran (auto) Absolute Neuts (auto) Absolute Nucleated RBC Nucleated RBC % (auto) PT INR Sodium Potassium Chloride Carbon Dioxide Anion Gap BUN Creatinine Estim Creat Clear Calc Estimated GFR POC Glucose 102 54 L* 77 Random Glucose Calcium Magnesium Total Bilirubin AST ALT Alkaline Phosphatase Total Protein Albumin Lipase 06/29/24 06/30/24 06/30/24 23:32 05:57 07:48 WBC RBC Hgb Hct MCV MCH MCHC RDW Plt Count MPV Immature Gran % (Auto) Neut % (Auto) Lymph % (Auto) [place] % (Auto) Eos % (Auto) Baso % (Auto) Lymph # (Auto) [place] # (Auto) Eos # (Auto) Baso # (Auto) Abs Immat Gran (auto) Absolute Neuts (auto) Absolute Nucleated RBC Nucleated RBC % (auto) PT INR Sodium Potassium Chloride Carbon Dioxide Anion Gap BUN Creatinine Estim Creat Clear Calc Estimated GFR POC Glucose 79 96 98 Random Glucose Calcium Magnesium Total Bilirubin AST ALT Alkaline Phosphatase Total Protein Albumin Lipase Airway Mallampati Class: II TM Dist: >3cm Neck ROM: Full Loose/Missing/Broken Teeth: No Heart: RRR Lungs: CTA Assessment and Plan Assessment Anesthesia Assessment: Anesthesia Plan Discussed and Chart Reviewed Final Anesthetic Review Family History of Problems with Anesthesia: No History of Problems with Anesthesia: No NPO: Yes ASA Class: III and Emergency Final Preanesthetic Review: No Changes in Pt Med Stat, Meds/Allgs Chart Reviewed, Consent Obtained/Reviewed and Anes Risks/Benef Reviewed Patient Risk: Intermediate Procedure Risk: Intermediate Anesthetic Plan Anesthetic Plan: GA Disposition: Standard PACU
--- NOTE | 2024-06-30 09:10 | P.PNIM_ITS ---
Subjective Subjective Date of Service: 06/30/24 Interval History: f/u on incarcerated inguinal hernia for surgery this morning, still having intermittent lower abd pain. No chest pain or sob Physical Exam 2 Vital Signs: Vital Signs: Last Vital Signs Temp 97.8 F 06/30/24 07:42 Pulse 72 06/30/24 07:42 Resp 16 06/30/24 07:42 BP 127/70 06/30/24 07:42 Pulse Ox 97 06/30/24 07:42 O2 Del Method Room Air 06/30/24 07:42 BMI result Body Mass Index 24.4 Const: Other: General: AO X 3, no acute distress Resp: CTA bilateral CVS: S1,S2,RRR, no JVD GI: +BS, NT, no distention Skin: No rash Neuro: motor grossly intact Psych: appropriate affect Objective Data Active Medications Atorvastatin Calcium (Atorvastatin Calcium 80 Mg Tablet) 80 mg PO BEDTIME [facility] Last Admin: 06/29/24 20:31 Dose: 80 mg Documented By: EMMA Docusate Sodium (Docusate Sodium 100 Mg Capsule) 100 mg PO BEDTIME [facility] Last Admin: 06/29/24 20:31 Dose: 100 mg Documented By: EMMA Fentanyl (Fentanyl Citrate/Pf 100 Mcg/2 Ml Vial) 25 mcg IVPUSH Q5M PRN PRN Reason: Pain, Moderate to Severe (Pain Scale 4-10) Stop: 06/30/24 14:18 Glucose (Glucose Gel 15 Gm Gel..Gram.) 15 gm PO Q15M PRN; Protocol PRN Reason: per Hypoglycemia Standing Ord. Last Admin: 06/29/24 20:39 Dose: 15 gm Documented By: EMMA Hydromorphone HCl (Hydromorphone Hcl 0.5 Mg/0.5 Ml Syringe) 0.5 mg IVPUSH Q3H PRN; Protocol PRN Reason: Pain, Severe (Pain Scale 7-10) Hydromorphone HCl (Hydromorphone Hcl 0.5 Mg/0.5 Ml Syringe) 0.5 mg IVPUSH Q5M PRN PRN Reason: Pain, Severe (Pain Scale 7-10) Stop: 06/30/24 14:18 Lactated Ringer's (Lr) 1,000 mls @ 100 mls/hr IVCONT .Q10H [facility] Last Admin: 06/30/24 08:03 Dose: Not Given Documented By: JESUS Non-Admin Reason: Physician Held Med Dextrose (D10) 250 mls @ 750 mls/hr IV Q15M PRN; Protocol PRN Reason: per Hypoglycemia Standing Ord. Dextrose/Lactated Ringer's (D5lr) 1,000 mls @ 80 mls/hr IVCONT .[id number] [facility] Last Infusion: 06/30/24 08:13 Dose: 0 mls/hr Documented By: JESUS Insulin Human Lispro (Insulin Lispro 100 Unit/Ml 3 Ml Vial) 0 unit SUBCUT QIDACHS [facility]; Protocol Last Admin: 06/30/24 08:02 Dose: Not Given Documented By: JESUS Non-Admin Reason: No Insulin Coverage Isosorbide Mononitrate (Isosorbide Mononitrate 30 Mg Tab.Er.24h) 30 mg PO BID [facility]; Protocol Last Admin: 06/29/24 20:31 Dose: 30 mg Documented By: EMMA Lisinopril (Lisinopril 5 Mg Tablet) 5 mg PO DAILY@1900 [facility]; Protocol Last Admin: 06/29/24 18:13 Dose: 5 mg Documented By: JESUS Metoprolol Succinate (Metoprolol Succinate Er 100 Mg Tab.Er.24h) 100 mg PO DAILY@1900 [facility]; Protocol Naloxone HCl (Naloxone Hcl 0.4 Mg/Ml Vial) 0.04 mg IVPUSH Q5M PRN PRN Reason: Excessive sedation or RR < 8 Nitroglycerin (Nitroglycerin 0.4 Mg Tab.Subl) 0.4 mg SUBLINGUAL Q5M PRN PRN Reason: chest pain Ondansetron HCl (Ondansetron Hcl 4 Mg/2 Ml Vial) 4 mg IVPUSH QID PRN PRN Reason: Nausea Sodium Chloride (0.9 % Sodium Chloride Flush 3 Ml Syringe) 3 ml IVFLUSH QSHIFT [facility] Last Admin: 06/30/24 08:03 Dose: Not Given Documented By: JESUS Non-Admin Reason: IV Running Vitamin D (Cholecalciferol (Vitamin D3) 25 Mcg Tablet) 50 mcg PO DAILY [facility] Labs 07/01/24 08:20 07/01/24 08:20 Labs: Laboratory Results - last 24 hr 06/29/24 06/29/24 06/29/24 09:21 09:54 12:44 MCV 97.8 MCH 33.9 H MCHC 34.6 RDW 13.5 Plt Count 254 MPV 9.0 L Immature Gran % (Auto) 0.5 H Neut % (Auto) 76.8 H Lymph % (Auto) 17.1 L Bee % (Auto) 4.4 Eos % (Auto) 0.6 Baso % (Auto) 0.6 Lymph # (Auto) 1.4 Bee # (Auto) 0.4 Eos # (Auto) 0.1 Baso # (Auto) 0.1 Abs Immat Gran (auto) 0.04 H Absolute Neuts (auto) 6.5 Absolute Nucleated RBC 0.000 Nucleated RBC % (auto) 0.0 PT 11.8 INR 1.0 Anion Gap 19 Estim Creat Clear Calc 68.8 Estimated GFR > 60 POC Glucose 159 H Random Glucose 213 H Calcium 9.5 Magnesium 2.1 Total Bilirubin 0.6 AST 22 ALT 17 Alkaline Phosphatase 74 Total Protein 7.1 Albumin 4.4 Lipase 32 06/29/24 06/29/24 06/29/24 16:12 20:36 21:02 MCV MCH MCHC RDW Plt Count MPV Immature Gran % (Auto) Neut % (Auto) Lymph % (Auto) Bee % (Auto) Eos % (Auto) Baso % (Auto) Lymph # (Auto) Bee # (Auto) Eos # (Auto) Baso # (Auto) Abs Immat Gran (auto) Absolute Neuts (auto) Absolute Nucleated RBC Nucleated RBC % (auto) PT INR Anion Gap Estim Creat Clear Calc Estimated GFR POC Glucose 102 54 L* 77 Random Glucose Calcium Magnesium Total Bilirubin AST ALT Alkaline Phosphatase Total Protein Albumin Lipase 06/29/24 06/30/24 06/30/24 23:32 05:57 07:48 MCV MCH MCHC RDW Plt Count MPV Immature Gran % (Auto) Neut % (Auto) Lymph % (Auto) Bee % (Auto) Eos % (Auto) Baso % (Auto) Lymph # (Auto) Bee # (Auto) Eos # (Auto) Baso # (Auto) Abs Immat Gran (auto) Absolute Neuts (auto) Absolute Nucleated RBC Nucleated RBC % (auto) PT INR Anion Gap Estim Creat Clear Calc Estimated GFR POC Glucose 79 96 98 Random Glucose Calcium Magnesium Total Bilirubin AST ALT Alkaline Phosphatase Total Protein Albumin Lipase Assessment and Plan (1) Hypertension: Status: Acute (2) CAD (coronary artery disease): Status: Acute Plan 79 year old male with Diabetes type 2, hypertension, hyperlipidemia, coronary artery disease with diffuse atherosclerosis and LAD stenting in the past, however is not describing angina symptoms at this time, last stress test in august 2023 showed 1. Moderately large area of partially reversible defect in RCA/circumflex territory suggestive of ischemia. He is admitted for incarcerated hernia repair.. Incarcerated hernia, for surgical repair. His RCRI score is 1, but despite the score, the moderately large area of partially reversible ischemia noted on the August 2023 stress test is concerning. Although he has no current angina, or heart failure symptoms this finding may necessitate further perioperative evaluation e.g., cardiology consultation or stress testing if time permits, however the surgery appear urgent and therefore not further testing indicated at this time, however ECG should be obtained. Continue cardioprotective meds including beta-jah continuation Diabetes--hold oral medication, SSI, IVF with glucose if sugar on low side HTN--continue metoprolol and lisinopril CAD, no angina, continue Imdure, metoprolol , lipitor\ Apropriate dvt prophylaxis after surgery Quality Stroke Does the patient have a stroke diagnosis?: No VTE Prior VTE?: No VTE Risk Level:: Surgical - moderate VTE Device Contraindication: N/A - Device Ordered VTE Drug Contraindication: Treatment Not Indicated
--- NOTE | 2024-06-30 09:27 | P.OP_ITS ---
Operative Note Operative Note Date of Service: 06/30/24 Narrative: Preoperative diagnosis: Incarcerated left inguinal hernia Postoperative diagnosis: Same Procedure: Repair of incarcerated left inguinal hernia with mesh Surgeon: Chance Florentino MD Center Director Lead Teacher: None Anesthesia: General LMA Indications for procedure: 79-year-old male patient with a long history of bilateral inguinal hernias presenting with increased pain and non reducible left inguinal hernia presenting to the emergency department. In the emergency department the hernia was unable to be reduced and was causing significant discomfort. Presents now for repair of this incarcerated left inguinal hernia. Operative findings: Incarcerated left direct inguinal hernia with viable bowel. Specimen: None Estimated blood loss: 2 mL Complications: None Procedure details: Patient was brought to the OR and placed in a supine position. After administering general anesthesia the patient's abdomen was prepped with ChloraPrep and draped in a sterile fashion. A surgical time-out was called the consent confirmed. Patient received preoperative antibiotics and Venodyne boots were in place. Local anesthesia consisting of 0.5% Sensorcaine was infiltrated over the left inguinal ligament. Incision was then made over the same area with a scalpel and carried out through subcutaneous tissue, past Alisa's fascia up to the external oblique aponeurosis. Additional local was infiltrated below the aponeurosis. The aponeurosis was then incised in widened with the Metzenbaum scissors. The spermatic cord was then dissected free from the surrounding inguinal canal. This was then retracted using a Jackson drain. A direct inguinal hernia was immediately identified. Fibers of the cremaster muscle were on the spermatic cord but no indirect sac could be identified. Attention was then directed to the direct sac. Fibers of the transversalis aponeurosis and internal oblique aponeurosis were incised with the electrocautery. Preperitoneal space was then dissected using an open Ray-Mira sponge. A large extended PHS mesh was then obtained. The circular underlay was deployed within the preperitoneal space. The overlay was then secured to the pubic tubercle, conjoined tendon, and shelving edge of the inguinal ligament using a 0 Polysorb suture. A slit was made in the mesh in the mesh wrapped around the spermatic cord at the internal ring. This was tight enough to allow passage of the tip of the index finger. The remainder of the mesh laterally was placed below the external oblique aponeurosis. The wounds were then irrigated with saline solution and suctioned dry. External oblique aponeurosis was then closed using a running 2-0 Polysorb suture. Approximately 8 mL of Zenrelef was then instilled below the external oblique aponeurosis for postoperative pain control. Alisa's fascia and dermis were then reapproximated using interrupted 3-0 Polysorb sutures. Skin was closed using a running subcuticular 4-0 Polysorb suture. Sterile dressings consisting of Steri-Strips, 4 x 4 gauze and Tegaderm were then applied. The patient tolerated the procedure well. Sponge, instrument, and needle counts reported as correct. The patient was transferred to PACU in stable condition.
--- NOTE | 2024-06-30 10:50 | ECG_ITS ---
Test Reason : CP Blood Pressure : / mmHG Vent. Rate : 059 BPM Atrial Rate : 059 BPM P-R Int : 192 ms QRS Dur : 092 ms QT Int : 410 ms P-R-T Axes : 024 049 048 degrees QTc Int : 405 ms Sinus bradycardia Low voltage QRS Borderline ECG When compared with ECG of 30-JUN-2024 10:50, No significant change was found Referred By: Chance lForentino Electronically Signed By:ЕКАТЕРИНА CERVANTES MD
[2024-06-30] MEDS: Cholecalciferol (Vitamin D3) 25 MCG TABLET 50 MCG PO (10:59)
[2024-06-30] MEDS: Dextrose 5 % and Lactated Ring 1,000 ML 80 ML IVCONT (11:01)
[2024-06-30] MEDS: Isosorbide Mononitrate 30 MG TAB.ER.24H PO ×2 (11:01→20:40)
[2024-06-30 11:45] LABS: Glucose, Whole Blood 93 mg/dL (60-115)
--- NOTE | 2024-06-30 13:25 | MHC.CM.PN ---
pt lives with is independent has own ride home dc plan home no servies
[2024-06-30 16:25] LABS: Glucose, Whole Blood 189 mg/dL (60-115)
[2024-06-30 20:25] LABS: Glucose, Whole Blood 211 mg/dL (60-115)
[2024-06-30] MEDS: Atorvastatin Calcium 80 MG TABLET PO (20:40)
[2024-06-30] MEDS: Insulin Lispro 100 UNIT/ML 3 ML VIAL SUBCUT (20:41)
[2024-06-30] MEDS: Docusate Sodium 100 MG CAPSULE PO (20:42)
[2024-06-30] MEDS: 0.9 % Sodium Chloride Flush 3 ML SYRINGE IVFLUSH (20:45)
--- NOTE | 2024-06-30 22:10 | PC.NURSE ---
pt requesting that his IV fluids be discontinues.Pt states he is eating and drinking fine. notified and said ok to discontinue IVF.
[2024-07-01 04:00] VITALS: BP 126/67; PULSE 72; RESP 18; TEMP 36.5; O2SAT 95
[2024-07-01 07:26] VITALS: BP 132/74; PULSE 83; RESP 18; TEMP 37.3; O2SAT 95
[2024-07-01 07:30] LABS: Glucose, Whole Blood 111 mg/dL (60-115)
--- NOTE | 2024-07-01 08:02 | PM.PNGS ---
Subjective Subjective Date of Service: 07/01/24 Interval history: Feels well this morning. Reports mild incisional discomfort but denies overt pain. Tolerating solid diet. Passing flatus and had a BM. OOB and ambulating without difficulty. Wants to go home. Physical Exam Vital Signs: Vital Signs: Last Vital Signs Temp 99.2 F 07/01/24 07:26 Pulse 83 07/01/24 07:26 Resp 18 07/01/24 07:26 BP 132/74 07/01/24 07:26 Pulse Ox 95 07/01/24 07:26 O2 Del Method Room Air 07/01/24 07:26 O2 Flow Rate 4 06/30/24 09:29 BMI result Body Mass Index 24.4 Const: General: comfortable, no acute distress and alert Orientation/consciousness: patient oriented x3 Resp: Effort & Inspection: normal respiratory effort GI: Inspection: No distended and Yes incision (dressing c/d/i, mild surrounding edema laterally ) Palpation (GI): Soft to palpation, nontender and no guarding Percussion: Yes normal to percussion Skin: General skin exam: no rashes or lesions noted Neuro: General: patient oriented x3 and moves all extremities Objective Data Active Medications Atorvastatin Calcium (Atorvastatin Calcium 80 Mg Tablet) 80 mg PO BEDTIME [facility] Last Admin: 06/30/24 20:40 Dose: 80 mg Documented By: EMMA Docusate Sodium (Docusate Sodium 100 Mg Capsule) 100 mg PO BEDTIME [facility] Last Admin: 06/30/24 20:42 Dose: 100 mg Documented By: EMMA Glucose (Glucose Gel 15 Gm Gel..Gram.) 15 gm PO Q15M PRN; Protocol PRN Reason: per Hypoglycemia Standing Ord. Last Admin: 06/29/24 20:39 Dose: 15 gm Documented By: EMMA Hydromorphone HCl (Hydromorphone Hcl 0.5 Mg/0.5 Ml Syringe) 0.5 mg IVPUSH Q3H PRN; Protocol PRN Reason: Pain, Severe (Pain Scale 7-10) Dextrose (D10) 250 mls @ 750 mls/hr IV Q15M PRN; Protocol PRN Reason: per Hypoglycemia Standing Ord. Insulin Human Lispro (Insulin Lispro 100 Unit/Ml 3 Ml Vial) 0 unit SUBCUT QIDACHS [facility]; Protocol Last Admin: 06/30/24 20:41 Dose: 3 unit Documented By: EMMA Isosorbide Mononitrate (Isosorbide Mononitrate 30 Mg Tab.Er.24h) 30 mg PO BID [facility]; Protocol Last Admin: 06/30/24 20:40 Dose: 30 mg Documented By: EMMA Lisinopril (Lisinopril 5 Mg Tablet) 5 mg PO DAILY@1900 [facility]; Protocol Last Admin: 06/30/24 18:05 Dose: Not Given Documented By: JESUS Non-Admin Reason: Physician Held Med Metoprolol Succinate (Metoprolol Succinate Er 100 Mg Tab.Er.24h) 100 mg PO DAILY@1900 [facility]; Protocol Last Admin: 06/30/24 18:06 Dose: Not Given Documented By: JESUS Non-Admin Reason: Physician Held Med Nitroglycerin (Nitroglycerin 0.4 Mg Tab.Subl) 0.4 mg SUBLINGUAL Q5M PRN PRN Reason: chest pain Ondansetron HCl (Ondansetron Hcl 4 Mg/2 Ml Vial) 4 mg IVPUSH QID PRN PRN Reason: Nausea Oxycodone HCl (Oxycodone Hcl Immed Release 5 Mg Tablet) 5 mg PO Q6H PRN PRN Reason: Pain, Moderate(Pain Scale 4-6) Sodium Chloride (0.9 % Sodium Chloride Flush 3 Ml Syringe) 3 ml IVFLUSH QSHIFT [facility] Last Admin: 06/30/24 20:45 Dose: 3 ml Documented By: EMMA Vitamin D (Cholecalciferol (Vitamin D3) 25 Mcg Tablet) 50 mcg PO DAILY [facility] Last Admin: 06/30/24 10:59 Dose: 50 mcg Documented By: JESUS Labs 06/29/24 09:21 06/29/24 09:54 Labs: Laboratory Results - last 24 hr 06/30/24 06/30/24 06/30/24 11:39 16:16 20:15 POC Glucose 93 189 H 211 H 07/01/24 07:25 POC Glucose 111 Procedures Date of Service Date of Service: 07/01/24 Progress Note: A&P Assessment and plan (1) Incarcerated hernia: Status: Acute (2) S/P left inguinal hernia repair: Status: Acute Plan POD #1 s/p repair of incarcerated left inguinal hernia with mesh. Pt doing well post op. Tolerating solid diet, good GI function. Hemodynamically stable, abd exam benign with clean dressing, abd soft. Feels ready and is surgically stable for discharge to home today. F/u in office in 1 week. Educated no heavy lifting. Time Spent With Patient Time: Total time managing care of this patient today ____ minutes. Quality Stroke Does the patient have a stroke diagnosis?: No VTE Prior VTE?: No VTE Risk Level:: Surgical - moderate VTE Device Contraindication: N/A - Device Ordered VTE Drug Contraindication: Treatment Not Indicated
--- NOTE | 2024-07-01 08:24 | MHC.CM.PN ---
Patient medically cleared for dc home self care. to transport. RN aware.
[2024-07-01 08:40] LABS: Hemoglobin 14.3 g/dl (14.0-18.0); Mean Corpuscular HGB Conc 33.3 g/dl (31.0-36.0); Mean Corpuscular Hemoglobin 33.1 pg (27.0-33.0); Mean Corpuscular Volume 99.5 fL (80.0-98.0); Platelet Count 248 X10*3/uL (160-400); Red Blood Count 4.32 X10*6/uL (4.60-5.80); Red Cell Distribution Width 13.8 % (11.0-16.0)
[2024-07-01] MEDS: Cholecalciferol (Vitamin D3) 25 MCG TABLET 50 MCG PO (08:44)
[2024-07-01] MEDS: Isosorbide Mononitrate 30 MG TAB.ER.24H PO (08:44)
[2024-07-01] MEDS: 0.9 % Sodium Chloride Flush 3 ML SYRINGE IVFLUSH (08:44)
[2024-07-01 08:57] LABS: Anion Gap 15 (12-20); Blood Urea Nitrogen 11 mg/dL (9-16); Calcium 9.3 mg/dL (8.4-10.2); Carbon Dioxide 25 mmol/L (22-29); Chloride 103 mmol/L (96-108); Creatinine Clr Calc Pharmacy 70.6; Estimated Glomerular Filt Rate > 60; Glucose Random 214 mg/dL (60-115); Potassium 3.8 mmol/L (3.3-5.1); Sodium 139 mmol/L (135-145)
--- NOTE | 2024-07-01 09:02 | HO.PM.IMPN ---
Subjective Subjective Date of Service: 07/01/24 Interval History: Had hernia repair yesterday, doing well Physical Exam Vital Signs: Vital Signs: Last Vital Signs Temp 99.2 F 07/01/24 07:26 Pulse 83 07/01/24 07:26 Resp 18 07/01/24 07:26 BP 132/74 07/01/24 07:26 Pulse Ox 95 07/01/24 07:26 O2 Del Method Room Air 07/01/24 07:26 O2 Flow Rate 4 06/30/24 09:29 BMI result Body Mass Index 24.4 Const: Other: General: AO X 3, no acute distress Resp: CTA bilateral CVS: S1,S2,RRR GI: +BS, NT, no distention Skin: No rash, wound d/c/i Neuro: motor grossly intact Psych: appropriate affect Objective Data Active Medications Atorvastatin Calcium (Atorvastatin Calcium 80 Mg Tablet) 80 mg PO BEDTIME [facility] Last Admin: 06/30/24 20:40 Dose: 80 mg Documented By: EMMA Docusate Sodium (Docusate Sodium 100 Mg Capsule) 100 mg PO BEDTIME [facility] Last Admin: 06/30/24 20:42 Dose: 100 mg Documented By: EMMA Glucose (Glucose Gel 15 Gm Gel..Gram.) 15 gm PO Q15M PRN; Protocol PRN Reason: per Hypoglycemia Standing Ord. Last Admin: 06/29/24 20:39 Dose: 15 gm Documented By: EMMA Hydromorphone HCl (Hydromorphone Hcl 0.5 Mg/0.5 Ml Syringe) 0.5 mg IVPUSH Q3H PRN; Protocol PRN Reason: Pain, Severe (Pain Scale 7-10) Dextrose (D10) 250 mls @ 750 mls/hr IV Q15M PRN; Protocol PRN Reason: per Hypoglycemia Standing Ord. Insulin Human Lispro (Insulin Lispro 100 Unit/Ml 3 Ml Vial) 0 unit SUBCUT QIDACHS [facility]; Protocol Last Admin: 07/01/24 08:42 Dose: Not Given Documented By: LILLI Non-Admin Reason: No Insulin Coverage Isosorbide Mononitrate (Isosorbide Mononitrate 30 Mg Tab.Er.24h) 30 mg PO BID [facility]; Protocol Last Admin: 07/01/24 08:44 Dose: 30 mg Documented By: LILLI Lisinopril (Lisinopril 5 Mg Tablet) 5 mg PO DAILY@1900 [facility]; Protocol Last Admin: 06/30/24 18:05 Dose: Not Given Documented By: JESUS Non-Admin Reason: Physician Held Med Metoprolol Succinate (Metoprolol Succinate Er 100 Mg Tab.Er.24h) 100 mg PO DAILY@1900 [facility]; Protocol Last Admin: 06/30/24 18:06 Dose: Not Given Documented By: JESUS Non-Admin Reason: Physician Held Med Nitroglycerin (Nitroglycerin 0.4 Mg Tab.Subl) 0.4 mg SUBLINGUAL Q5M PRN PRN Reason: chest pain Ondansetron HCl (Ondansetron Hcl 4 Mg/2 Ml Vial) 4 mg IVPUSH QID PRN PRN Reason: Nausea Oxycodone HCl (Oxycodone Hcl Immed Release 5 Mg Tablet) 5 mg PO Q6H PRN PRN Reason: Pain, Moderate(Pain Scale 4-6) Sodium Chloride (0.9 % Sodium Chloride Flush 3 Ml Syringe) 3 ml IVFLUSH QSHIFT [facility] Last Admin: 07/01/24 08:44 Dose: 3 ml Documented By: LILLI Vitamin D (Cholecalciferol (Vitamin D3) 25 Mcg Tablet) 50 mcg PO DAILY [facility] Last Admin: 07/01/24 08:44 Dose: 50 mcg Documented By: LILLI Labs 07/01/24 08:20 07/01/24 08:20 Labs: Laboratory Results - last 24 hr 06/30/24 06/30/24 06/30/24 11:39 16:16 20:15 MCV MCH MCHC RDW Plt Count MPV Absolute Nucleated RBC Nucleated RBC % (auto) Anion Gap Estim Creat Clear Calc Estimated GFR POC Glucose 93 189 H 211 H Random Glucose Calcium 07/01/24 07/01/24 07:25 08:20 MCV 99.5 H MCH 33.1 H MCHC 33.3 RDW 13.8 Plt Count 248 MPV 9.0 L Absolute Nucleated RBC 0.000 Nucleated RBC % (auto) 0.0 Anion Gap 15 Estim Creat Clear Calc 70.6 Estimated GFR > 60 POC Glucose 111 Random Glucose 214 H Calcium 9.3 Assessment and Plan (1) Hypertension: Status: Acute (2) CAD (coronary artery disease): Status: Acute Plan 79 year old male with Diabetes type 2, hypertension, hyperlipidemia, coronary artery disease with diffuse atherosclerosis and LAD stenting in the past, however is not describing angina symptoms at this time, last stress test in august 2023 showed 1. Moderately large area of partially reversible defect in RCA/circumflex territory suggestive of ischemia. He is admitted for incarcerated hernia repair.. Incarcerated hernia, s/p surgical repair yesertday and doing well, tolerating regular diet. Diabetes, HT, CAD--stable, continue current meds and resume home meds upon dischare. Medically, ok for [place] Quality Stroke Does the patient have a stroke diagnosis?: No VTE Prior VTE?: No VTE Risk Level:: Surgical - moderate VTE Device Contraindication: N/A - Device Ordered VTE Drug Contraindication: Treatment Not Indicated
--- NOTE | 2024-07-01 10:30 | P.DS_ITS ---
DS: Providers Provider Date of Service: 07/01/24 Date of admission: 06/29/24 10:54 Date of discharge: 07/01/24 Primary care physician: KIMO Muñoz Attending physician on admission: Chance Florentino Consults: 06/29/24 10:53 Consult to Hospitalist Routine Comment: Consulting Provider: [facility] Hospitalists Reason For Exam: preop medical clearance, inc. [facility] Attending physician on discharge: Chance Florentino DS: Diagnosis Discharge Diagnosis (1) Hypertension: Status: Acute (2) CAD (coronary artery disease): Status: Acute DS: Summary Hospital Course Hospital Course: HPI AT ADMISSION: Alhaji Underwood is a 79 year old male presenting with a 24 hour history of pain in the left groin. He has known about bilateral inguinal hernias for many years but has remained relatively asymptomatic. He reports losing weight recently but denies any inciting event prior to the onset of left groin pain. He reports feeling a hard lump in the left groin which was painful to the touch. He denies straining to have a bowel movement. He denies a previous history of hernia surgery. Workup in the emergency department revealed a non reducible left inguinal hernia. CT abdomen and pelvis confirmed bilateral inguinal hernias with a fat containing right inguinal hernia and left inguinal hernia containing a loop of small bowel with findings suggestive of obstruction. He reports a past history of diabetes and coronary artery disease. HOSPITAL COURSE: He was admitted to the surgical service in anticipation of repair of this incarcerated left inguinal hernia after medical optimization. Patient has discomfort when the hernia is attempted to be reduced and will require repair of this incarcerated left inguinal hernia. Hospitalist consultation was obtained prior to surgical intervention. On 06/30/24, Repair of incarcerated left inguinal hernia with mesh was performed by Dr. Florentino without complication. The patient tolerated the procedure well. He had an uncomplicated recovery course. He was advanced to a solid diet. On the day of discharge, POD #1, he had minimal incisional pain. He was tolerating a solid diet without nausea or vomiting. He was ambulating without difficulty and had good GI function. His abdomen was benign with appropriate post op tenderness, dressing dry and intact. He felt ready for discharge. He was discharged to home on 07/01/24 in stable condition. He is to follow up in the office in 1 week. Status at Discharge Functional status at discharge: independent ambulation Overall status at discharge: patient is progressing back to baseline Time Attestation Discharge Coordination Time (in mins): 35 Quality: Safe Use of Opioids Does Pt have an Active Cancer Diagnosis on the Problem List?: No Quality: Stroke Does the patient have a stroke diagnosis?: No Physical Exam Vital Signs: Vital Signs: Last Vital Signs Temp 99.2 F 07/01/24 07:26 Pulse 83 07/01/24 07:26 Resp 18 07/01/24 07:26 BP 132/74 07/01/24 07:26 Pulse Ox 95 07/01/24 07:26 O2 Del Method Room Air 07/01/24 07:26 O2 Flow Rate 4 06/30/24 09:29 BMI result Body Mass Index 24.4 Const: General: comfortable, no acute distress and alert Orientation/consciousness: patient oriented x3 Resp: Effort & Inspection: normal respiratory effort GI: Inspection: No distended and Yes incision (dressing intact, clean) Palpation (GI): Soft to palpation and nontender Skin: General skin exam: no rashes or lesions noted Neuro: General: patient oriented x3 and moves all extremities Discharge Plan Discharge Anticipated Discharge Date/Time: 07/01/24 07:45 Patient Disposition: Home, Self-Care Discharge Diagnosis: s/p incarcerated left inguinal hernia repair Referrals: Bruna Salazar PA [Primary Care Provider] - 1 Week Chance Florentino MD [Physician] - 1 Week Discharge Medications: New docusate sodium [Colace] 100 mg capsule 100 mg PO BID PRN (Reason: constipation) Qty: 30 0RF oxycodone 5 mg tablet 5 mg PO Q4H PRN (Reason: pain (scale score 7-10)) Qty: 10 0RF Rx Instructions: Partial Fill upon patient request. Continued cholecalciferol (vitamin D3) 50 mcg (2,000 unit) capsule 50 mcg PO DAILY Qty: 90 3RF Rx Instructions: Start once have completed vitamin-D 82054 units once a week for 6 weeks. Jardiance 25 mg tablet 25 mg PO DAILY 90 Days Qty: 90 1RF metformin 1,000 mg tablet 1,000 mg PO BID 90 Days Qty: 180 1RF nitroglycerin 0.4 mg tablet, sublingual 0.4 mg sublingual Q5M PRN (Reason: chest pain) Qty: 30 1RF Rx Instructions: do not exceed 3 doses per episode atorvastatin 80 mg tablet 80 mg PO BEDTIME Qty: 90 3RF metoprolol succinate 100 mg tablet extended release 24 hr 100 mg PO DAILY@1900 isosorbide mononitrate 60 mg tablet extended release 24 hr 30 mg PO BID lisinopril 5 mg tablet 5 mg PO DAILY@1900 Trulicity 1.5 mg/0.5 mL pen injector 1.5 mg subcut [facility] (DME) blood sugar diagnostic Strip See Rx Instructions Not Applicable TID Qty: 10 Rx Instructions: As directed Ultra CoQ10 75 mg capsule 75 mg PO DAILY glimepiride 2 mg tablet 2 mg PO BID Discharge Orders: Discharge Order (Routine); Ordered 07/01/24 Ordered By: Shelby Love Diet: Advance to usual diet Activity on Discharge: No heavy lifting Stand Alone Forms: Patient Portal Discharge page Print Language: [place] Activity Restrictions/Additional Instructions: If the incision area is tender, you may apply an ice pack for short intervals (No more than 20 minutes on, followed by at least 20 minutes off). Do not apply heat. Do not use creams, lotions, or topical antibiotics. Ok to shower. Remove clear dressings 3 days following your procedure. You have steri strips (small white cloth strips) covering your incision- these will fall off ~1 week. No heavy lifting (>10lbs) or strenuous activity! Take Tylenol Extra-strength 1-2 tabs every 6 hours for the first day, then as needed. Oxycodone every 6-8 hours as needed for pain. Colace 100 mg every day as needed for constipation. Follow up in office with Dr. Florentino in 1 week. ([phone]) Call Your Doctor If: -Your temperature exceeds 101.5? F -You experience excessive pain or swelling -You have an unexpected reaction to medication -You have excessive bleeding -You experience continued vomiting/nausea -Your incision begins to separate -Your incision shows signs of infection such as increased redness, swelling, excessive pain, drainage (light blood or clear fluid is normal) or heat Care Plan Goals: Return to baseline health and resume normal activities following recovery period. Health Concerns: diabetes mellitus hypertension incarcerated left inguinal hernia Plan of Treatment: s/p repair of incarcerated left inguinal hernia f/u in office in 1 week Assessment: doing well post op Discharge Date/Time: 07/01/24 10:08
--- NOTE | 2024-07-02 09:56 | HO.POSTANES ---
Post Anesthesia Evaluation Post Anesthesia Evaluation Date of Service: 07/02/24 Anesthesia: General Endotracheal-GETA Mental Status: Awake Pain Control: Satisfactory Nausea/Vomiting: None Hydration: Adequate Anesthesia-Related Issues: No Anes. Related Issues
== END 2024-07-01 10:08 | disposition home or self-care (01) | DRG 352 ==
LOC: HO.ED 10:16 → HO.EDOVER 12:18 → HO.S3 14:20
PROVIDERS: Internal Medicine; Physician Assistant; Admitting Provider Surgery; Emergency Provider Emergency Medicine Emergency Medical Services; PCP Physician Assistant; Visit Provider Surgery
PROC: 0YU60JZ Supplement Left Inguinal Region with Synthetic Substitute, Open Approach (ICD-10-PCS; principal; 2024-06-30 08:00)
DX: K40.30 Unilateral inguinal hernia, with obstruction, without gangrene, not specified as recurrent (principal); E78.5 Hyperlipidemia, unspecified; I25.10 Atherosclerotic heart disease of native coronary artery without angina pectoris; E11.40 Type 2 diabetes mellitus with diabetic neuropathy, unspecified; Z87.891 Personal history of nicotine dependence; Z79.84 Long term (current) use of oral hypoglycemic drugs; Z79.85 Long-term (current) use of injectable non-insulin antidiabetic drugs; Z79.899 Other long term (current) drug therapy
CPT/HCPCS: 36415; 74176; 76870; 80048; 80053; 82947; 83690; 83735; 85025; 85027; 85610; 93005; 93975; 99285; C1781; C9088; J0690; J2003; J2270; J2371; J2405; J2704; J2795; J3010; J7120

== ENCOUNTER → 2024-06-29 09:08 | Outpatient (BNV) | payer MEDICARE, SELFPAY | PROVIDERS: Emergency Provider Emergency Medicine Emergency Medical Services; PCP Physician Assistant; Visit Provider Surgery | DX: K40.31 Unilateral inguinal hernia, with obstruction, without gangrene, recurrent (principal) | CPT/HCPCS: 49507; 99024; 99222 ==

== ENCOUNTER 2024-06-29 10:54 | Outpatient (BNV) | payer MEDICARE, SELFPAY | END 2024-06-30 10:50 | PROVIDERS: Admitting Provider Surgery; Emergency Provider Emergency Medicine Emergency Medical Services; PCP Physician Assistant; Visit Provider Internal Medicine Cardiovascular Disease | DX: R07.9 Chest pain, unspecified (principal) | CPT/HCPCS: 93010 ==

== ENCOUNTER → 2024-06-29 10:54 | Outpatient (BNV) | payer MEDICARE, SELFPAY | PROVIDERS: Admitting Provider Surgery; Emergency Provider Emergency Medicine Emergency Medical Services; PCP Physician Assistant; Visit Provider Internal Medicine | DX: I10 Essential (primary) hypertension (principal); E11.8 Type 2 diabetes mellitus with unspecified complications | CPT/HCPCS: 99222; 99232 ==

== ENCOUNTER 2024-07-09 09:34 | Outpatient (AMB) | payer MEDICARE, SELFPAY ==
[2024-07-09 09:33] VITALS: BP 118/58; PULSE 72; BMI 25.8
--- NOTE | 2024-07-09 09:33 | A.OFFVIS_ITS ---
Vital Signs 07/09/24 09:33 Height 5 ft 7 in Weight 165 lb BMI 25.8 BP 118/58 L Blood Pressure Location Lt brachial Position Sitting Pulse 72 Intake Visit Reasons: s/p Repair of incarcerated left inguinal hernia Intake Note: Patient is seen in office for post op assessment post repair of incarcerated left inguinal hernia with mesh. Pt c/o: did good for the first couple of days, last days area has been sore and tender, denies any other concerns surgery:06/30/24 Abstract Checker Required: No Accompanied by: Self / Same As Patient Allergies No Known Allergies [NO KNOWN ALLERGIES] Allergy (Unknown, Verified 07/09/24 09:42) UNKNOWN HPI Comments Details: Patient returns 1 month following repair of a left inguinal hernia with mesh. He feels well and is generally pain free. He denies any nausea, vomiting, fever or chills. [facility] Medical History Vitamin D deficiency Overweight (BMI 25.0-29.9) CAD (coronary artery disease) Dyslipidemia Hypertension Diabetic nephropathy associated with type 2 diabetes mellitus Diabetes type 2, uncontrolled Surgical History History of left inguinal hernia repair (06/30/24) Stented coronary artery History of prostate surgery Hx of cardiac cath Family History Father No problems noted. Mother No problems noted. Maternal Uncle Diabetes mellitus Social History Household Members: Spouse Housing: House Do you presently have visiting nurse or other home services: No Alcohol intake: current Alcohol intake frequency: a few times a month Alcohol type: beer Patient Tobacco Use Status: Former Tobacco user Second Hand Smoke Exposure: No Substance Use Type: Marijuana service: No Physical Exam Vital Signs: Last Vital Signs Pulse 72 07/09/24 09:33 BP 118/58 L 07/09/24 09:33 BMI result Body Mass Index 25.8 Const General: no acute distress Resp Effort & Inspection: normal respiratory effort GI Other: Left inguinal incision is clean, dry, and intact without redness or discharge. No hernia noted with Valsalva maneuvers. Extrem Other: No edema Assessment & Plan Assessment & Plan (1) S/P left inguinal hernia repair: Code(s): Z98.890 - Other specified postprocedural states; Z87.19 - Personal history of other diseases of the digestive system Category: Surgical Plan 79-year-old male patient returning 1 week following repair of a left inguinal hernia with mesh. He tolerated procedure well and her wounds are healing nicely. I recommended continuing to avoid lifting greater than 10 lb. He should follow up in 1 month for final examination. He is welcome to call sooner for any new concerns. Coding Level of Care Code Global (10732) Diagnoses S/P left inguinal hernia repair Z98.890; Z87.19
== END 2024-07-09 09:48 | disposition home or self-care (01) ==
LOC: HO.HGS 09:34
PROVIDERS: PCP Physician Assistant; Visit Provider Surgery
DX: Z98.890 Other specified postprocedural states (principal); Z87.19 Personal history of other diseases of the digestive system
CPT/HCPCS: 99024

== ENCOUNTER → 2024-07-09 09:34 | Outpatient (BNVA) | payer MEDICARE, SELFPAY | PROVIDERS: PCP Physician Assistant; Visit Provider Surgery | DX: Z48.815 Encounter for surgical aftercare following surgery on the digestive system (principal); Z87.19 Personal history of other diseases of the digestive system; Z98.890 Other specified postprocedural states | CPT/HCPCS: 99212 ==

== ENCOUNTER 2024-08-09 09:28 | Outpatient (AMB) | payer MEDICARE, SELFPAY ==
--- NOTE | 2024-08-09 09:37 | MHC.OFFVIS ---
Vital Signs 08/09/24 09:40 Height 5 ft 7 in Weight 163 lb 8 oz BMI 25.6 BP 127/77 Blood Pressure Location Lt brachial Position Sitting Pulse 86 Intake Visit Reasons: 1 mth f U s/p Rpr of incarcerated lft ing hernia Intake Note: Patient is seen in office for one month follow up visit, post repair of incarcerated left inguinal hernia with mesh. Pt c/o: denies any concerns regarding the hernia repair Telephone Instrument Supervisor Required: No Accompanied by: Self / Same As Patient Allergies No Known Allergies [NO KNOWN ALLERGIES] Allergy (Unknown, Verified 08/09/24 09:40) UNKNOWN Medication List - Last Reconciled 08/09/24 by Chance Florentino MD atorvastatin 80 mg PO BEDTIME blood sugar diagnostic As directed cholecalciferol (vitamin D3) 50 mcg PO DAILY coenzyme Q10 (Ultra CoQ10) 75 mg PO DAILY docusate sodium (Colace) 100 mg PO BID PRN dulaglutide (Trulicity) 1.5 mg subcut WE empagliflozin (Jardiance) 25 mg PO DAILY 90 days glimepiride 2 mg PO BID isosorbide mononitrate ER 30 mg PO BID lisinopril 5 mg PO DAILY@1900 metformin 1,000 mg PO BID 90 days metoprolol succinate ER 100 mg PO DAILY@1900 nitroglycerin 0.4 mg sublingual Q5M PRN HPI Comments Details: 79-year-old male patient returning status post repair of a an incarcerated left inguinal hernia one-month ago. He feels well and denies any ongoing abdominal symptoms. He is eating well and denies any difficulty with his bowels. [facility] Medical History Vitamin D deficiency Overweight (BMI 25.0-29.9) CAD (coronary artery disease) Dyslipidemia Hypertension Diabetic nephropathy associated with type 2 diabetes mellitus Diabetes type 2, uncontrolled Surgical History History of left inguinal hernia repair (06/30/24) Stented coronary artery History of prostate surgery Hx of cardiac cath Family History Father No problems noted. Mother No problems noted. Maternal Uncle Diabetes mellitus Social History Household Members: Spouse Housing: House Do you presently have visiting nurse or other home services: No Alcohol intake: current Alcohol intake frequency: a few times a month Alcohol type: beer Patient Tobacco Use Status: Former Tobacco user Second Hand Smoke Exposure: No Substance Use Type: Marijuana service: No Physical Exam Const General: no acute distress Resp Effort & Inspection: normal respiratory effort GI Other: Left inguinal incision is clean, dry, and intact without redness or discharge. No hernia noted with Valsalva maneuvers. Extrem Other: No edema Assessment & Plan Assessment & Plan (1) S/P left inguinal hernia repair: Code(s): Z98.890 - Other specified postprocedural states; Z87.19 - Personal history of other diseases of the digestive system Category: Surgical Plan 79-year-old male patient returning 1 month following repair of a left inguinal hernia. His wounds are well healed with no evidence of infection or recurrence. He may resume normal activity without restrictions and should follow up as needed. Coding Level of Care Code Global (07819) Diagnoses S/P left inguinal hernia repair Z98.890; Z87.19
[2024-08-09 09:40] VITALS: BP 127/77; PULSE 86; BMI 25.6
== END 2024-08-09 09:54 | disposition home or self-care (01) ==
PROVIDERS: PCP Physician Assistant; Visit Provider Surgery
DX: Z98.890 Other specified postprocedural states (principal); Z87.19 Personal history of other diseases of the digestive system
CPT/HCPCS: 99024

== ENCOUNTER → 2024-08-09 09:28 | Outpatient (BNVA) | payer MEDICARE, SELFPAY | PROVIDERS: PCP Physician Assistant; Visit Provider Surgery | DX: Z98.890 Other specified postprocedural states (principal); Z87.19 Personal history of other diseases of the digestive system | CPT/HCPCS: 99212 ==

== ENCOUNTER 2025-02-17 08:14 | Inpatient (IN) | payer MEDICARE, SELFPAY ==
--- NOTE | ~2025-02-17 | CT_ITS ---
EXAMINATION: CT ABDOMEN PELVIS WITH IV CONTRAST HISTORY: LLQ pain COMPARISON: Comparison is made with the prior examination dated 06/29/2024. TECHNIQUE: CT scan of the abdomen and pelvis was performed following administration of 85 mL Omnipaque 350 using standard departmental protocol. Coronal and sagittal reformatted images were generated and reviewed. Oral contrast material was not administered at the request of the referring physician. This CT exam was performed with one or more of the following dose reduction techniques: automated exposure control, adjustment of the mA and/or kV according to patient size, use of iterative reconstruction technique. DLP: 570 mGy-cm FINDINGS: LOWER CHEST: There is an ill-defined approximately 5 mm nodular opacity in the right lower lobe. There is no pleural effusion. CARDIOVASCULATURE: The heart is normal in size. There is no pericardial effusion. LIVER: There are multiple hypodense masses within the liver consistent with metastatic disease. The largest mass is in the right lobe measuring 3.2 cm in size. The hepatic and portal veins are patent. GALLBLADDER / BILE DUCTS: The gallbladder is unremarkable. There is no intra or extrahepatic biliary ductal dilatation. SPLEEN: The spleen is normal in size. No focal splenic lesion is identified. PANCREAS: There is a hypodense mass in the pancreatic body measuring 4.9 x 2.4 x 2.9 cm consistent with adenocarcinoma. There is atrophy of the pancreatic tail with dilatation of the pancreatic duct in the tail. The pancreatic head is unremarkable. ADRENAL GLANDS: Within normal limits. 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 No renal calculi are identified. There is no hydronephrosis. No renal masses are identified. LYMPH NODES: There is a 1.4 cm soft tissue nodule just above the pancreatic tail which may represent a lymph node. VASCULATURE: The abdominal aorta demonstrates atherosclerotic calcification, but is normal in caliber. Portions of the celiac axis and splenic artery about the pancreatic mass without evidence of an intervening fat plane. The vessels appear patent. The superior mesenteric artery is patent. MESENTERY/PERITONEUM: No free fluid. No masses. There is no free intraperitoneal gas. STOMACH: The stomach is collapsed, limiting evaluation. SMALL BOWEL: The small bowel is normal in caliber. COLON: There is a large amount of stool throughout the colon. APPENDIX: Normal. URINARY BLADDER/PELVIC ORGANS: There is a 3.9 cm right posterolateral bladder diverticulum. There is mild urinary bladder wall thickening which may be on the basis of chronic outflow obstruction. The prostate is enlarged. BONES / SOFT TISSUES: There is a large fat-containing right inguinal hernia. There is degenerative disc disease of the spine. CT/CT abdomen pelvis w IV con IMPRESSION: 1. 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 2. Multiple hepatic metastases. 3. These findings were discussed with KIMO Bennett in the emergency room on 02/09/2025 at 12:56 PM. 4. Possible 1.4 cm peripancreatic lymph node. 5. Large amount of stool throughout the colon. 6. Large fat-containing right inguinal hernia. Electronically signed by: Judson Maxwell MD 02/17/2025 01:01 PM EDT
--- NOTE | ~2025-02-17 | MR_ITS ---
EXAMINATION: MRCP CLINICAL INFORMATION: Pancreatic mass. TECHNIQUE: Axial and coronal T2 fat-sat haste sequences. Axial and coronal T2 haste sequences. MRCP radial T2 fat-sat. Coronal oblique T2 fat-sat single slice. Axial in and out of phase 3-D sequences. COMPARISON: CT dated February 17, 2025. FINDINGS: Inadequate evaluation due to lack of IV contrast and multiple dynamic enhanced MRI. There are numerous, multifocal, different sizes, less than 3 cm hypointense T1 and intermediate to slightly hyperintense peripheral T2 signal lesions throughout the liver parenchyma. Liver measures 16 cm in maximum craniocaudal dimension. There is a questionable intraluminal heterogeneous flow-void signal abnormality within the intrahepatic portion of the IVC and probable portal veins. The gallbladder is fluid-filled without distention. There is no pericholecystic fluid collection or gallbladder wall thickening. The common bile duct measures 4 mm. The main pancreatic duct measures 2 mm in the head region. There is a 3 cm exophytic intermediate T2 signal lesion in the superior mid body of the pancreas. There is a 4 mm sac related dilatation of the main pancreatic duct in the tail to the body of the pancreas. Spleen measures 10 cm without focal signal abnormality. No nodular lesions in the adrenal glands. There is questionable soft tissue fullness in the left adrenal gland. There is a horseshoe kidneys with the fused lower pole below the superior mesenteric artery. No gross hydronephrosis in either kidney. Subcentimeter cyst in both kidneys. No gross ascites. Abundant stool large intestine. There is intraluminal signal abnormality within the inferior vena cava. There is no aneurysm or gross dissection in the abdominal aorta. Small fat-containing umbilical hernia. There is subtle bone marrow inhomogeneity. Level spondylosis no fully evaluated on the exam. Small hiatal hernia. MR/MR MRCP IMPRESSION: Concerning metastatic disease, hepatic with questionable primary neoplasm in the body of the pancreas. No cholelithiasis or choledocholithiasis. No ascites. Questionable tumor infiltration and to the inferior vena cava and main portal vein. Horseshoe kidney. Electronically signed by: Dayday Gibbons MD 02/17/2025 03:46 PM EDT
[2025-02-17 08:16] VITALS: BP 91/68; PULSE 75; RESP 16; TEMP 36.3; O2SAT 100; BMI 23.5
[2025-02-17 08:32] LABS: Hematocrit 40.9 % (42.0-52.0); Hemoglobin 13.7 g/dl (14.0-18.0); Imm Gran Abs Auto 0.01 X10*3/uL (0.00-0.03); Imm Gran Pct Auto 0.1 % (0.0-0.4); Lymphocytes Absolute Auto 1.9 X10*3/uL (1.2-4.9); MANUAL DIFF FLAG NO; Mean Corpuscular HGB Conc 33.5 g/dl (31.0-36.0); Mean Corpuscular Hemoglobin 33.1 pg (27.0-33.0); Mean Corpuscular Volume 98.8 fL (80.0-98.0); NRBC Abs Auto 0.000 X10*3/uL (0.0-0.012); NRBC Pct Auto 0.0 /100WBC (0.0-0.2); Platelet Count 203 X10*3/uL (160-400); Red Blood Count 4.14 X10*6/uL (4.60-5.80); White Blood Count 7.9 X10*3/uL (4.8-10.8)
[2025-02-17 08:49] LABS: Anion Gap 14 (12-20); Blood Urea Nitrogen 21 mg/dL (9-16); Calcium 9.7 mg/dL (8.4-10.2); Carbon Dioxide 27 mmol/L (22-29); Chloride 104 mmol/L (96-108); Creatinine Clr Calc Pharmacy 74.4; Estimated Glomerular Filt Rate > 60; Potassium 4.5 mmol/L (3.3-5.1); Sodium 140 mmol/L (135-145)
--- OUTSIDE RECORDS SUMMARY | 2025-02-17 10:05 | XMS_ITS | Clinical Summary ---
Author Organization [facility] Address [address] [place] [address] Phone Care Team Providers Care Skidway Man Name Role Phone Osito Vernon MD Primary Care Provider [phone] Allergies No known active allergies Medications atorvastatin (LIPITOR) 80 MG tablet Take 80 mg by mouth daily. Active clopidogrel (PLAVIX) 75 mg tablet Take 75 mg by mouth daily. Active coenzyme Q10 100 mg capsule Take 100 mg by mouth daily. Active finasteride (PROSCAR) 5 mg tablet Take 5 mg by mouth daily. Active SITagliptin (JANUVIA) 100 MG tablet Take 100 mg by mouth daily. Active metFORMIN (GLUCOPHAGE) 1000 MG tablet Take 1,000 mg by mouth 2 (two) times a day with meals. Active lisinopril (PRINIVIL,ZESTRI L) 40 MG tablet Take 20 mg by mouth daily. Active pioglitazone (ACTOS) 45 MG tablet Take 45 mg by mouth daily. Active metoprolol succinate (TOPROL-XL) 50 MG 24 hr tablet Take 50 mg by mouth daily. Active Social History Tobacco Use Types Packs/Day Years Used Date Smoking Tobacco: Never Assessed Education Answer Date Recorded Are you interested in more education? Not on mandi e 11/18/2022 Are you concerned about learning? Not on file 11/18/2022 No 11/18/2022 No 11/18/2022 Digital Access Answer Date Recorded No 12/17/2022 No 12/17/2022 Reliable internet access at home? Not on file 12/17/2022 Device with a working camera? Not on file Sex and Gender Information Value Date Recorded Sex Assigned at Not on file Legal Sex Male 10:09 PM EDT Gender Identity Not on file Sexual Orientation Not on file Last Filed Vital Signs Vital Sign Reading Time Taken Comments Blood Pressure 135/82 05/14/2018 8:25 AM EDT Pulse 95 05/14/2018 7:50 AM EDT Temperature 36.1 C (97 F) 05/14/2018 8:10 AM EDT Respiratory Rate 12 05/14/2018 8:10 AM EDT Oxygen Saturation 96% 05/14/2018 8:25 AM EDT Inhaled Oxygen Concentration - - Weight 84.8 kg (187 lb) 05/14/2018 7:50 AM EDT Height 170.2 cm (5' 7 ) 05/14/2018 7:50 AM EDT Body Mass Index 29.29 05/14/2018 7:50 AM EDT Plan of Treatment Upcoming Encounters Date Type Department Care Team (Late st Contact Info) Description 12/01/2025 11:30 AM EDT Office Visit [facility] [address] [place] [address] Kannan Mojica MD [address] [place] [address] [email or web address] Health Maintenance Due Date Last Done Comments Adult Td,Tdap Booster 1944 CREATININE LEVEL 1944 LIPID PANEL 1944 POTASSIUM LEVEL 1944 DEPRESSION SCREENING 1956 SMOKING Hx and SMOKELESS TOBACCO SCREENING 1957 ZOSTER VACCINES (1 of 2) 1994 RSV VACCINE (1 - 1-dose 75+ series) 2019 PNEUMOCOCCAL VACCINES (50+ years) (2 of 2 - PCV) 12/05/2019 12/04/2018 COVID-19 VACCINE (2023-2 5 season) 2024 09/20/2020, 08/30/2020 HEPATITIS A VACCINES Aged Out No long er eligible based on patient's age to complete this topic HIB VACCINES Aged Out No longer eligi ble based on patient's age to complete this topic MENINGOCOCCAL VACCINES (ACWY) Aged Out No longer eligible based on patient's age to complete this topic MENINGOCOCCAL VACCINES (B) Aged Out N o longer eligible based on patient's age to complete this topic Medical Devices Not on file Insurance MEDICARE PART A & B [employer] SUPPLEMENT MEDICARE PART A & B [employer] MEDEX SUPPLEMENT MEDICARE PART A & B Member Subscriber Plan / Payer (Ef fective 2014-Present) Name:Alhaji Underwood Member ID:[id number] Relation to Subscriber:Self Name:Alhaji Underwood Subscriber ID:[id number] Payer ID:[id number] Group ID:Not on file Type:Medicare [facility] [address] [facility] MEDEX SUPPLEMENT MEDICARE PART A & B [employer] MEDEX SUPPLEMENT MEDICARE PART A & B [employer] MEDEX SUPPLEMENT MEDICARE PART A & B [employer] MEDEX SUPPLEMENT MEDICARE PART A & B [employer] MEDEX SUPPLEMENT MEDICARE PART A & B [employer] MEDEX SUPPLEMENT MEDICARE PART A & B [employer] MEDEX SUPPLEMENT Care Teams Skidway Man Relationship Specialty Start Date End Date Osito Vernon MD [address] [place] [id number] [email or web address] PCP - General Family Medicine 05/14/18 Additional Source Comments The information contained in this document represents components of the legal health record. It is not the complete legal health record.[facility]
--- OUTSIDE RECORDS SUMMARY | 2025-02-17 10:05 | XMS_ITS | Patient Health Record ---
Author Organization [facility] Address [address] [place] [address] Care Team Providers Care Event Coordinator Marketing And Sales Name Role Phone Jerrod Salinas Jr Reason For Referral No Information Plan Of Treatment No Information
--- NOTE | 2025-02-17 10:33 | PC.NURSE ---
pt reports intermittent 4/10 lower pain x 2 days w some associated nausea, pain resolved prior to arrival. a&ox4, vss, urine sample obtained and sent to lab. no new orders at this time.
[2025-02-17 10:39] LABS: Appearance Urine Clear; Glucose Urine UA >=1000 mg/dL (Negative); PH 5.0 (5.0-9.0); Specific Gravity - Urine >= 1.030 (1.005-1.025); UMIC TRIGGER UACC YES
[2025-02-17 11:14] VITALS: BP 102/61; PULSE 65; RESP 12; TEMP 36.4; O2SAT 97
--- NOTE | 2025-02-17 11:51 | ED_ITS ---
HPI - General Adult General Chief complaint: Abdominal Pain Stated complaint: abd pain Time Seen by Provider: 02/17/25 09:07 Source: patient, RN notes reviewed and old records reviewed Mode of arrival: ambulatory Limitations: no limitations History of Present Illness ED Provider: Constance DAS narrative: 79-year-old male with past medical history significant for diabetes, coronary artery disease, hypertension, hyperlipidemia presents for evaluation of abdominal pain. The patient did have a left inguinal hernia repair in June of last year. He reports left lower abdominal pain that started 1-1/2 days ago that woke him up from sleep. He reports his pain has been waxing and waning and did initially go away but came back last night Currently his pain is a 4 or 5/10. He reports associated nausea but denies Any fevers or chills. He has no other complaints or concerns at this time Related Data Home Medications ?Medication ?Instructions ?Recorded ?Confirmed blood sugar diagnostic #10 ea 06/15/20 08/09/24 coenzyme Q10 75 mg capsule (Ultra 75 mg PO DAILY 04/0608/09/24 CoQ10) glimepiride 2 mg tablet 2 mg PO BID 09/25/23 5 dulaglutide 1.5 mg/0.5 mL 1.5 mg subcut WE 06/29/24 subcutaneous pen injector (Trulicity) lisinopril 5 mg tablet 5 mg PO DAILY@1900 06/29/24 08/09/24 metoprolol succinate 100 mg 100 mg PO DAILY@1900 06/2908/09/24 tablet,extended release 24 hr Previous Rx's ?Medication ?Instructions ?Recorded cholecalciferol (vitamin D3) 50 50 mcg PO DAILY #90 ca ps 09/08/21 mcg (2,000 unit) capsule empagliflozin 25 mg tablet 25 mg PO DAILY 90 days #90 tabs 01/20/22 (Jardiance) metformin 1,000 mg tablet 1,000 mg PO BID 90 days #180 tabs 01/20/22 nitroglycerin 0.4 mg sublingual 0.4 mg sublingual Q5M PRN chest 11/24/22 tablet pain #30 tabs atorvastatin 80 mg tablet 80 mg PO BEDTIME #90 tabs docusate sodium 100 mg capsule 100 mg PO BID PRN const ipation #30 07/01/24 (Colace) caps ezetimibe 10 mg tablet 10 mg PO DAILY #90 tabs 08/25 02/14 isosorbide mononitrate 60 mg 30 mg (1/2 x 60 mg) PO BI D-TID 11/04/24 tablet,extended release 24 hr #135 tabs Allergies Allergy/AdvReac Type Severity Reaction Status Date / Time No Known Allergies (NO KNOWN Allergy Unknown UNKNOWN Verified 02/17/25 08:19 ALLERGIES) Review of Systems 2 Constitutional: Constitutional: Denies body ache(s), Denies chills, Denies fever(s) and Denies headache(s) Eyes: Eyes: Denies blurry vision ENT: Denies dizziness and Denies headache(s) Cardiovascular: Cardiovascular: Denies dyspnea on exertion Respiratory: Respiratory: Denies cough and Denies dyspnea on exertion Gastrointestinal: Gastrointestinal: Reports abdominal pain, Denies melena, Denies hematochezia, Reports nausea and Denies vomiting Musculoskeletal: Musculoskeletal: Denies back pain Integumentary/Breasts: Skin/Breast: Denies rash Neurologic: Denies dizziness and Denies headache(s) [facility] Past Medical History Medical History Vitamin D deficiency Overweight (BMI 25.0-29.9) CAD (coronary artery disease) Dyslipidemia Hypertension Diabetic nephropathy associated with type 2 diabetes mellitus Diabetes type 2, uncontrolled Surgical History History of left inguinal hernia repair (06/30/24) Stented coronary artery History of prostate surgery Hx of cardiac cath Family History Family History Father No problems noted. Mother No problems noted. Maternal Uncle Diabetes mellitus Social History Social History Household Members: Spouse Housing: House Do you presently have visiting nurse or other home services: No Alcohol intake: current Alcohol intake frequency: a few times a month Alcohol type: beer Patient Tobacco Use Status: Former Tobacco user Smoked in Last 30 Days: No Second Hand Smoke Exposure: No Substance Use Type: Marijuana Substance Use Frequency: Weekly Advance Directives: No Advance Directives Information Provided: Yes service: No Physical Exam ED Vital Signs: Vital Signs - 24 hr 02/17/25 08:16 02/17/25 11:14 Temperature 97.3 F 97.6 F Pulse Rate 75 65 Respiratory Rate 16 12 Blood Pressure 91/68 102/61 Pulse Oximetry 100 97 Oxygen Delivery Method Room Air Room Air BMI result Body Mass Index 23.5 Const General: healthy appearing, comfortable, no acute distress, alert and awake Nutritional Appearance: well nourished Orientation/consciousness: patient oriented x3 HENMT Head: Yes normocephalic and Yes atraumatic Eyes Eyelids: Yes eyelids normal Conjunctivae: conjunctivae normal Sclerae: sclerae normal Corneas: corneas normal Pupils: Equal, round and reactive pupils present EOM: EOMs intact bilaterally Neck Neck: Yes full ROM Resp Effort & Inspection: normal respiratory effort, able to speak in complete sentences and not labored GI Inspection: No distended Palpation (GI): Soft to palpation, not firm, nontender, no guarding and not rigid Skin General skin exam: no rashes or lesions noted and elasticity normal Neuro General: patient oriented x3 Cranial nerves: Yes Equal, round and reactive pupils present and Yes Bilaterally intact EOM present Cognition (Neuro): normal cognition Extrem Other: Moving all extremities well without any obvious deformities Course Reevaluation(s) Reevaluation #1: The patient has CT scan unfortunately showed a 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 Given that this is a fairly large mass that developed in the last 7 months I discussed with oncology who recommends admission for expedited workup. Dr. Wolfe also recommends MRCP which I ordered. Time: 13:58 Medications Administered Discontinued Medications Generic Name Dose Route Start Last Admin Trade Name Freq PRN Reason Stop Dose Admin Iohexol 100 ml 02/17/25 12:22 02/17/25 12:23 Iohexol 350 Mg/Ml 100 Ml Infus..Btl IV 02/17/25 12:23 85 ml ONCE ONE Administration Medical Decision Making Medical Decision Making MDM Narrative: 79-year-old male with past medical history as above presents for evaluation abdominal pain. He does have a history of inguinal hernia repair about 7 months ago there are no evidence of infectious process, no fever, he is actually nontender on exam. Given his age and previous surgery we will get a CT scan of the abdomen pelvis. Less likely bowel obstruction as the patient reports he is passing gas. Differential Diagnosis Differential Diagnoses: The differential diagnosis associated with the presentation includes Abdominal pain Constipation Diverticulitis Bowel obstruction Colonic mass Admission/Observation Consideration of admission/observation: Escalation of care including admission/observation considered Consult Healthcare Provider Management of the patient was discussed with: Hospitalist (dr davis for admission) and Tractor Trailer Mechanic (oncology, dr wolfe) Lab Data MDM Lab Attestation statement: I reviewed the patient's lab results. No leukocytosis. The patient has a very mild anemia which she has had in the past. Normal platelet count. No significant electrolyte abnormalities warranting intervention. Random glucose elevated to 196. The patient has a history of diabetes. There was no evidence of DKA 02/17/25 08:25 02/17/25 08:25 Labs: Lab Results 02/17/25 02/17/25 Range/Units 08:25 10:29 WBC 7.9 (4.8-10.8) X10*3/uL RBC 4.14 L (4.60-5.80) X10*6/uL Hgb 13.7 L (14.0-18.0) g/dl Hct 40.9 L (42.0-52.0) % MCV 98.8 H (80.0-98.0) fL MCH 33.1 H (27.0-33.0) pg MCHC 33.5 (31.0-36.0) g/dl RDW 13.5 (11.0-16.0) % Plt Count 203 (160-400) X10*3/uL MPV 8.9 L (9.4-12.4) fL Immature Gran % (Auto) 0.1 (0.0-0.4) % Neut % (Auto) 66.4 (45-73) % Lymph % (Auto) 23.7 (20-40) % Pender % (Auto) 6.5 (2-11) % Eos % (Auto) 2.7 (0-4) % Baso % (Auto) 0.6 (0-2) % Lymph # (Auto) 1.9 (1.2-4.9) X10*3/uL Pender # (Auto) 0.5 (0.1-1.2) X10*3/uL Eos # (Auto) 0.2 (0.0-0.4) X10*3/uL Baso # (Auto) 0.1 (0.0-0.2) X10*3/uL Abs Immat Gran (auto) 0.01 (0.00-0.03) X10*3/uL Absolute Neuts (auto) 5.2 (2.0-8.3) x10*3/uL Absolute Nucleated RBC 0.000 (0.0-0.012) X10*3/uL Nucleated RBC % (auto) 0.0 (0.0-0.2) /100WBC Sodium 140 (135-145) mmol/L Potassium 4.5 (3.3-5.1) mmol/L Chloride 104 (96-108) mmol/L Carbon Dioxide 27 (22-29) mmol/L Anion Gap 14 (12-20) BUN 21 H (9-16) mg/dL Creatinine 0.74 (0.5-1.4) mg/dL Estim Creat Clear Calc 74.4 Estimated GFR > 60 Random Glucose 196 H (60-115) mg/dL Calcium 9.7 (8.4-10.2) mg/dL Total Bilirubin 0.4 (0.0-1.0) mg/dL Direct Bilirubin 0.1 (0.0-0.5) mg/dL AST 35 (5-37) U/L ALT 67 H (0-40) U/L Alkaline Phosphatase 170 H (39-117) U/L Total Protein 6.9 (6.5-8.0) g/dL Albumin 4.5 (3.5-5.0) g/dL Lipase 18 (8-78) U/L Urine Color Yellow Urine Appearance Clear Urine pH 5.0 (5.0-9.0) Ur Specific [place] >= 1.030 H (1.005-1.025) Urine Protein Negative (Neg-Trace) mg/dL Urine Glucose (UA) >=1000 H (Negative) mg/dL Urine Ketones Trace (Negative) mg/dL Urine Blood Negative (Negative) Urine Nitrite Negative (Negative) Ur Leukocyte Esterase Negative (Negative) Urine RBC 0-2 (0-2) /HPF Urine WBC 0-5 (0-5) /HPF Ur Squamous Epith Cells 0-2 (0-2) /HPF Urine Bacteria None Seen (None Seen) Hyaline Casts 0-2 (0-2) /LPF Radiology Impression Discussion of test interpretation with radiology: I have reviewed the radiologist's reading. Radiologist Impression: CT/CT abdomen pelvis w IV con IMPRESSION: 1. 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 2. Multiple hepatic metastases. 3. These findings were discussed with KIMO Bennett in the emergency room on 02/09/2025 at 12:56 PM. 4. Possible 1.4 cm peripancreatic lymph node. 5. Large amount of stool throughout the colon. 6. Large fat-containing right inguinal hernia. Prescription Management I considered prescription management with: Pain Medication Chronic Conditions Patient?s care impacted by: Diabetes and Hypertension Discharge Plan Discharge Clinical Impression: Pancreatic mass, Abdominal pain, Constipation Patient Disposition: Admitted As Inpatient Print Language: Kiswahili
[2025-02-17] MEDS: iohexoL 350 MG/ML 100 ML INFUS..BTL IV (12:23)
[2025-02-17 13:14] LABS: Alanine Aminotransferase 67 U/L (0-40); Albumin Level 4.5 g/dL (3.5-5.0); Alkaline Phosphatase 170 U/L (39-117); Aspartate Amino Transferase 35 U/L (5-37); Lipase 18 U/L (8-78); Total Protein 6.9 g/dL (6.5-8.0)
[2025-02-17 14:03] VITALS: BP 135/71; PULSE 56; RESP 16; TEMP 36; O2SAT 98
--- NOTE | 2025-02-17 14:14 | PM.IMHP ---
History of Present Illness Date of Service: 02/17/25 Chief Complaint: Abdominal pain This has a 79-year-old male with pertinent history of type 2 uns-enyudyh-thnltznbj diabetes mellitus, hypertension, mixed hyperlipidemia, coronary artery disease status post stent who presents to the emergency department for evaluation of abdominal pain. Patient states his symptoms started 1 day prior to presentation. He started having lower abdominal discomfort which is generalized, intermittent, nonradiating and without any relieving factors. His last bowel movement was 2 days ago. He has been passing gas. Denies nausea or vomiting. Also admits 30 lb weight loss over the last 6 months. Does have poor appetite. No fever, chills, chest pain, palpitations, shortness of breath, changes in urinary habits. 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 Oncology was consulted who requested admission with MRCP. Review of Systems Constitutional: Constitutional: Reports fatigue, Reports malaise, Reports poor appetite, Reports weakness and Reports weight loss Cardiovascular: Cardiovascular: Reports no additional cardiovascular complaints Respiratory: Respiratory: Reports no additional respiratory complaints Gastrointestinal: Gastrointestinal: Reports abdominal pain Genitourinary: Genitourinary: Reports no additional male genitourinary complaints Neurologic: Reports weakness Endocrine: Endocrine: Reports fatigue [facility] Medical History Vitamin D deficiency Overweight (BMI 25.0-29.9) CAD (coronary artery disease) Dyslipidemia Hypertension Diabetic nephropathy associated with type 2 diabetes mellitus Diabetes type 2, uncontrolled Family History Father No problems noted. Mother No problems noted. Maternal Uncle Diabetes mellitus Surgical History History of left inguinal hernia repair (06/30/24) Stented coronary artery History of prostate surgery Hx of cardiac cath Social History Household Members: Spouse Housing: House Do you presently have visiting nurse or other home services: No Alcohol intake: current Alcohol intake frequency: a few times a month Alcohol type: beer Patient Tobacco Use Status: Former Tobacco user Smoked in Last 30 Days: No Second Hand Smoke Exposure: No Substance Use Type: Marijuana Substance Use Frequency: Weekly Advance Directives: No Advance Directives Information Provided: Yes service: No Meds Allergies Allergy/AdvReac Type Severity Reaction Status Date / Time No Known Allergies (NO KNOWN Allergy Unknown UNKNOWN Verified 02/17/25 08:19 ALLERGIES) Home Medications ?Medication ?Instructions ?Recorded ?Confirmed ?Last Taken ?Type blood sugar diagnostic #10 ea 06/15/20 08/09/24 Unknown History coenzyme Q10 75 mg capsule (Ultra 75 mg PO DAILY 04/06/21 08/09/24 06/29/24 History CoQ10) glimepiride 2 mg tablet 2 mg PO BID 09/25/23 08/09/24 06/29/24 History dulaglutide 1.5 mg/0.5 mL 1.5 mg subcut WE 06/29/24 08/09/24 06/26/24 History subcutaneous pen injector (Trulicity) lisinopril 5 mg tablet 5 mg PO DAILY@1900 06/29/24 08/09/24 06/28/24 History metoprolol succinate 100 mg 100 mg PO DAILY@1900 06/29/24 08/09/24 06/29/24 History tablet,extended release 24 hr Physical Exam Vital Signs and Narrative: Vital Signs: Last Vital Signs Temp 96.8 F 02/17/25 14:03 Pulse 56 02/17/25 14:03 Resp 16 02/17/25 14:03 BP 135/71 02/17/25 14:03 Pulse Ox 98 02/17/25 14:03 O2 Del Method Room Air 02/17/25 14:03 BMI result Body Mass Index 23.5 Elderly male lying in bed in no distress Neck supple, no JVD Regular rate and rhythm, S1-S2 heard Regular breath sounds bilaterally, no wheezing or crackles appreciated Abdomen soft nontender, no guarding, no rigidity Patient is awake, alert and oriented to self, place, time and person ; no focal motor deficit Psych: Normal mood No pedal edema Results Labs 02/17/25 08:25 02/17/25 08:25 Labs: Laboratory Results - last 24 hr 02/17/25 02/17/25 08:25 10:29 MCV 98.8 H MCH 33.1 H MCHC 33.5 RDW 13.5 Plt Count 203 MPV 8.9 L Immature Gran % (Auto) 0.1 Neut % (Auto) 66.4 Lymph % (Auto) 23.7 Piatt % (Auto) 6.5 Eos % (Auto) 2.7 Baso % (Auto) 0.6 Lymph # (Auto) 1.9 Piatt # (Auto) 0.5 Eos # (Auto) 0.2 Baso # (Auto) 0.1 Abs Immat Gran (auto) 0.01 Absolute Neuts (auto) 5.2 Absolute Nucleated RBC 0.000 Nucleated RBC % (auto) 0.0 Anion Gap 14 Estim Creat Clear Calc 74.4 Estimated GFR > 60 Random Glucose 196 H Calcium 9.7 Total Bilirubin 0.4 Direct Bilirubin 0.1 AST 35 ALT 67 H Alkaline Phosphatase 170 H Total Protein 6.9 Albumin 4.5 Lipase 18 Urine Color Yellow Urine Appearance Clear Urine pH 5.0 Ur Specific [place] >= 1.030 H Urine Protein Negative Urine Glucose (UA) >=1000 H Urine Ketones Trace Urine Blood Negative Urine Nitrite Negative Ur Leukocyte Esterase Negative Urine RBC 0-2 Urine WBC 0-5 Ur Squamous Epith Cells 0-2 Urine Bacteria None Seen Hyaline Casts 0-2 Imaging Radiologist's Impressions: Impressions Abdomen/Pelvis CT 02/17/25 11:16 IMPRESSION: 1. 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 2. Multiple hepatic metastases. 3. These findings were discussed with KIMO Bennett in the emergency room on 02/09/2025 at 12:56 PM. 4. Possible 1.4 cm peripancreatic lymph node. 5. Large amount of stool throughout the colon. 6. Large fat-containing right inguinal hernia. Electronically signed by: Judson Maxwell MD 02/17/2025 01:01 PM EDT Assessment and Plan (1) Pancreatic mass: Status: Acute Plan This has a 79-year-old male with pertinent history of type 2 pgo-wcgdhrf-rzluepewh diabetes mellitus, hypertension, mixed hyperlipidemia, coronary artery disease status post stent who presents to the emergency department for evaluation of abdominal pain. #. Pancreatic mass: 4.9 x 2.4 x 2.9 cm mass in the body of pancreas, compatible with a adenocarcinoma and multiple hepatic metastasis noted on imaging. MRCP pending. Consulted Oncology, appreciate assistance. IV opioids p.r.n. for analgesia. Clear liquid diet. CA 19 9 pending #. Xht-eooapvq-rbfczremk type 2 diabetes mellitus with hyperglycemia: Initiating Accu-Cheks with sliding scale insulin. Hold oral home antihyperglycemics #. Hypertension: Continue home antihypertensives Med rec pending DVT prophylaxis SCDs Full code. Discussed with patient at bedside Admit as inpatient and will require two night minimum hospital stay for evaluation of pancreatic mass (as above), which is not possible in a lesser acute setting. Quality Stroke Does the patient have a stroke diagnosis?: No VTE Prior VTE?: No VTE Risk Level:: Medical - moderate - high VTE Device Contraindication: N/A - Device Ordered VTE Drug Contraindication: Treatment Not Indicated
--- NOTE | 2025-02-17 14:37 | MHC.EDTECH ---
pt off unit for MRI
--- NOTE | 2025-02-17 15:56 | P.CNHO_ITS ---
Subjective - Subjective Chief complaint: Weight loss and intermittent abdominal pain Patient: new to practice Consult date: 02/17/25 Primary Care Provider: KIMO Muñoz Director Of Perioperative Services Utilized?: No - Italian Speaking HPI - Consult Narrative Reason for consult: Probable metastatic pancreatic cancer Narrative: Alhaji Underwood is a 79 year old male who drove himself to ED this morning because of 2nd episode of abdominal/epigastric discomfort. Patient states that the abdominal pain was rather fleeting and resolved by the time he came to the emergency room. However this was the 2nd time it happened, previously it happened about a week ago. Not associated with any nausea or emesis. Responded to Tylenol. He however was concerned because he has had a 30 lb weight loss in the last 6 months. He denies any changes to his medications. He had a wellness check with his PCP about 2 weeks ago but does not recall if he had any blood work. He has never been diagnosed with any cancer. He has history of coronary artery disease and has a stent placed many years ago. He was supposed to take baby aspirin. He denies any recent infections, chest pain or shortness of breath. He does not recall any family history of cancer. A 2nd cousin may have had some type of cancer. He has 1 sibling. He is and lives at home with his . 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 Review of Systems - Constitutional Reports as per HPI, Denies fatigue, Denies lack of energy, Denies malaise, Denies poor appetite, Reports weight loss - Cardiovascular Reports no additional cardiovascular complaints - Respiratory Reports no additional respiratory complaints - Gastrointestinal Reports no additional gastrointestinal complaints, Reports abdominal pain, Denies black, tarry stools, Denies bright, red blood in stools, Denies change in stools, Denies dyspepsia, Denies heartburn, Denies vomiting - Neurologic Denies dizziness, Denies headache(s), Reports weakness PMF[facility] Medical History: Medical History (Last Reviewed 02/17/25 @ 15:10 by Poli Estrada MD) CAD (coronary artery disease) Diabetes type 2, uncontrolled Diabetic nephropathy associated with type 2 diabetes mellitus Dyslipidemia Hypertension Overweight (BMI 25.0-29.9) Vitamin D deficiency Family History: Family History (Last Reviewed 02/17/25 @ 15:10 by Poli Estrada MD) Father No problems noted. Mother No problems noted. Maternal Uncle Diabetes mellitus Surgical History: Surgical History (Last Reviewed 02/17/25 @ 15:10 by Poli Estrada MD) History of left inguinal hernia repair Onset Date: 06/30/24 History of prostate surgery Hx of cardiac cath Stented coronary artery Social History: Social History (Last Reviewed 02/17/25 @ 15:10 by Poli Estrada MD) Living Situation History: Household Members: Spouse Housing: House Do you presently have visiting nurse or other home services: No Alcohol History Details: 1. How often do you have a drink containing alcohol?: c. 2-4 times a month 2. How many drinks containing alcohol do you have on a typical day when you are drinking?: a. 1 or 2 3. How often do you have six or more drinks on one occasion?: a. Never AUDIT-C Alcohol total score: 2 Tobacco History: Patient Tobacco Use Status: Former Tobacco user Smoked in Last 30 Days: No Second Hand Smoke Exposure: No Substance Use History: Substance Use Type: Marijuana Substance Use Frequency: Weekly Advance Directives: Advance Directives: No Advance Directives Information Provided: Yes Nutrition Assessment: Nutrition Risks: No Nutritional Risk Occupation Assessmet: service: No Home Medications and Allergies Current Medications: Current Medications Acetaminophen (Acetaminophen 325 Mg Tablet) 650 mg PO Q6H PRN PRN Reason: Pain, Mild 1-3,fever,headache Calcium Carbonate (Calcium Carbonate 750 Mg Tab.Chew) 750 mg PO Q4H PRN PRN Reason: Heartburn Dextrose (Dextrose 50 % 25 Gm/50 Ml Syringe) 25 gm IVPUSH Q15M PRN; Protocol PRN Reason: per Hypoglycemia Standing Ord. Glucose (Glucose Gel 15 Gm Gel..Gram.) 15 gm PO Q15M PRN; Protocol PRN Reason: per Hypoglycemia Standing Ord. Hydromorphone HCl (Hydromorphone Hcl 1 Mg/Ml Syringe) 1 mg IVPUSH Q4H PRN; Protocol PRN Reason: Pain, Severe (Pain Scale 7-10) Insulin Human Lispro (Insulin Lispro 100 Unit/Ml 3 Ml Vial) 0 unit SUBCUT QIDACHS GIFTY; Protocol Magnesium Hydroxide (Milk Of Magnesia 30 Ml Oral.Susp) 30 ml PO DAILY PRN PRN Reason: Constipation Melatonin (Melatonin 3 Mg Tablet) 6 mg PO BEDTIME PRN PRN Reason: Insomnia Ondansetron HCl (Ondansetron Hcl 4 Mg/2 Ml Vial) 4 mg IVPUSH Q8H PRN PRN Reason: Nausea and Vomiting Sodium Chloride (0.9 % Sodium Chloride Flush 3 Ml Syringe) 3 ml IVFLUSH QSHIFT [facility] Home Medications ?Medication ?Instructions ?Recorded ?Confirmed ?Type blood sugar diagnostic #10 ea 06/15/20 08/09/24 History coenzyme Q10 75 mg capsule (Ultra 75 mg PO DAILY 04/06/21 08/09/24 History CoQ10) glimepiride 2 mg tablet 2 mg PO BID 09/25/23 08/09/24 History dulaglutide 1.5 mg/0.5 mL 1.5 mg subcut WE 06/29/24 08/09/24 Histo ry subcutaneous pen injector (Trulicity) lisinopril 5 mg tablet 5 mg PO DAILY@1900 06/29/24 08/09/24 His tory metoprolol succinate 100 mg 100 mg PO DAILY@1900 06/29/24 08/09/24 H istory tablet,extended release 24 hr acetaminophen 325 mg tablet 650 mg PO Q4H PRN Pain 02/17/25 02/17/25 History finasteride 5 mg tablet 5 mg PO DAILY 02/17/25 02/17/25 History Allergies Allergy/AdvReac Type Severity Reaction Status Date / Time No Known Allergies (NO KNOWN Allergy Unknown UNKNOWN Verified 02/17/25 08:19 ALLERGIES) Physical Exam Vital signs: Vital Signs Temp 96.8 F 02/17/25 14:03 Pulse 56 02/17/25 14:03 Resp 16 02/17/25 14:03 BP 135/71 02/17/25 14:03 Pulse Ox 98 02/17/25 14:03 O2 Del Method Room Air 02/17/25 14:03 Intake & Output 02/16/25 02/17/25 02/17/25 18:59 06:59 18:59 Other: Weight 68.039 kg Weight 68.039 kg - Constitutional Present: no acute distress - Routine HEENT Exam Head: Present: normal inspection Eye: Present: EOMI, PERRL - Routine Neck Exam Present: supple. Absent: lymphadenopathy - Routine Respiratory Exam Absent: accessory muscle use - Routine Cardiovascular Exam Cardiovascular: Present: S1, S2 - Routine Abdominal Exam Present: soft - Routine Extremities Exam Present: pulses intact Hem/Onc Consult Result - Labs CBC & Chem 7: 02/17/25 08:25 02/17/25 08:25 Labs: Short CBC 02/17/25 Range/Units 08:25 WBC 7.9 (4.8-10.8) X10*3/uL Hgb 13.7 L (14.0-18.0) g/dl Hct 40.9 L (42.0-52.0) % Plt Count 203 (160-400) X10*3/uL BMP 02/17/25 08:25 Sodium 140 Potassium 4.5 Chloride 104 Carbon Dioxide 27 BUN 21 H Creatinine 0.74 Calcium 9.7 Liver Function 02/17/25 Range/Units 08:25 Total Bilirubin 0.4 (0.0-1.0) mg/dL Direct Bilirubin 0.1 (0.0-0.5) mg/dL AST 35 (5-37) U/L ALT 67 H (0-40) U/L Alkaline Phosphatase 170 H (39-117) U/L Albumin 4.5 (3.5-5.0) g/dL Urine 02/17/25 Range/Units 10:29 Urine Color Yellow Urine Appearance Clear Urine pH 5.0 (5.0-9.0) Ur Specific [place] >= 1.030 H (1.005-1.025) Urine Protein Negative (Neg-Trace) mg/dL Urine Glucose (UA) >=1000 H (Negative) mg/dL Assessment and Plan Patient Active problem list reviewed?: Yes (1) Pancreatic mass Status: Acute Assessment and plan: 1. This is a 79-year-old male presenting with mild intermittent abdominal discomfort and [address] abdomen/pelvis with IV contrast revealed hypodense mass in the pancreatic body measuring 4.9 x 2.4 x 2.9 cm consistent with adenocarcinoma. There is atrophy of the pancreatic tail with dilatation of pancreatic duct. Multiple hepatic metastasis largest in the right lobe measuring 3.2 cm in size. MRCP showed multifocal different size lesions throughout liver parenchyma, gallbladder is fluid filled without distention. I discussed above findings with the patient and his at the bedside. CA 19 9 has been ordered. Patient has coronary artery disease with stent placement. It is unclear whether he is taking baby aspirin, he thinks he is but his is not so sure. As for pain control, he is refusing any narcotic pain medication. He says Tylenol this morning helped his pain and he does not need anymore pain medications. Blood work shows mild elevation in alkaline phosphatase level but no acute or severe transaminitis or abnormal blood tests. He will need CT-guided biopsy of liver lesion which will establish diagnosis as well as stage of disease. Further workup can be performed as outpatient. I thank you for the consultation. - Time Spent With Patient Time Spent with Patient (in minutes): 45 Additional Coding: - Additional E/M codes Complex E/M visit Add On: CPT G2211
[2025-02-17 16:23] VITALS: BP 125/73; PULSE 60; RESP 12; TEMP 36.8; O2SAT 98
[2025-02-17 16:28] LABS: INTERNATIONAL NORM RATIO 1.0 (0.9-1.1); Prothrombin Time 11.9 SEC (10.9-12.4)
--- NOTE | 2025-02-17 16:38 | PHA.MEDREC ---
Pharmacy Consult ? Medication Reconciliation Pharmacy has completed the medication reconciliation. Pt was able to confirm his medications and pt at bedside with a bag of Rx bottles (Jardiance 25mg, Glimperide 2mg, Isosorbide 60mg, Metformin 1000mg and Metoprolol Sucinate 100mg). Pt confirmed he takes the Isosorbide 60mg tab, 1/2 tab BID-TID depending on if he gets chest pain in his day or not. Pt states he still takes Atorvastatin 80mg once at bedtime, Lisinopril 5mg once daily and Finasteride 5mg tabs once daily (pt states he ran out of Finasteride 5mg in the last week and has no more refills) that the pt states he gets from a mail order service. Pt also taking a Vitamin B-12 tablet once a day but couldn't remember the dose of the medication.
--- NOTE | 2025-02-17 16:49 | PHA.MEDREC ---
Addendum entered by Katie Pollard [facility] 02/17/25 16:58: REVIEWED BY PHARMACIST Original Note: Pharmacy Consult ? Medication Reconciliation Pharmacy has completed the medication reconciliation. Pt was able to confirm his medications and pt at bedside with a bag of Rx bottles (Jardiance 25mg, Glimperide 2mg, Isosorbide 60mg, Metformin 1000mg and Metoprolol Sucinate 100mg). Pt confirmed he takes the Isosorbide 60mg tab, 1/2 tab BID-TID depending on if he gets chest pain in his day or not. Pt states he still takes Atorvastatin 80mg once at bedtime, Lisinopril 5mg once daily and Finasteride 5mg tabs once daily (pt states he ran out of Finasteride 5mg in the last week and has no more refills) that the pt states he gets from a mail order service. Pt also taking a Vitamin B-12 tablet once a day but couldn't remember the dose of the medication. Pt and spouse confirmed the pt is taking Trulicity 1.5mg once every 2 weeks (spouse confirmed that changed by pt in the last couple months) on Wednesdays and confirmed the pt last took it Monday 02/12.
[2025-02-17 16:55] LABS: Carcinoembryonic Antigen 7.50 ng/mL
[2025-02-17 17:01] LABS: Glucose, Whole Blood 83 mg/dL (60-115)
[2025-02-17 18:21] VITALS: BP 124/72; PULSE 61; RESP 15; TEMP 36.4; O2SAT 96
[2025-02-17 18:27] VITALS: BMI 24.0
[2025-02-17] MEDS: 0.9 % Sodium Chloride Flush 3 ML SYRINGE IVFLUSH ×2 (18:27→21:18)
[2025-02-17 18:29] LABS: Glucose, Whole Blood 65 mg/dL (60-115)
[2025-02-17 19:49] VITALS: BP 112/69; PULSE 63; RESP 18; TEMP 36.3; O2SAT 98
[2025-02-17 19:58] LABS: Glucose, Whole Blood 112 mg/dL (60-115)
[2025-02-18 03:03] VITALS: BP 132/76; PULSE 61; RESP 18; TEMP 36.6; O2SAT 92
[2025-02-18 05:57] LABS: MANUAL DIFF FLAG NO
[2025-02-18 06:15] LABS: Hematocrit 42.0 % (42.0-52.0); Hemoglobin 14.1 g/dl (14.0-18.0); Imm Gran Abs Auto 0.01 X10*3/uL (0.00-0.03); Imm Gran Pct Auto 0.1 % (0.0-0.4); Lymphocytes Absolute Auto 2.5 X10*3/uL (1.2-4.9); Mean Corpuscular HGB Conc 33.6 g/dl (31.0-36.0); Mean Corpuscular Hemoglobin 32.6 pg (27.0-33.0); Mean Corpuscular Volume 97.2 fL (80.0-98.0); NRBC Abs Auto 0.000 X10*3/uL (0.0-0.012); NRBC Pct Auto 0.0 /100WBC (0.0-0.2); Platelet Count 208 X10*3/uL (160-400); Red Blood Count 4.32 X10*6/uL (4.60-5.80); White Blood Count 7.9 X10*3/uL (4.8-10.8)
[2025-02-18 06:19] LABS: Alanine Aminotransferase 54 U/L (0-40); Albumin Level 4.2 g/dL (3.5-5.0); Alkaline Phosphatase 151 U/L (39-117); Anion Gap 12 (12-20); Aspartate Amino Transferase 33 U/L (5-37); Blood Urea Nitrogen 14 mg/dL (9-16); Calcium 9.0 mg/dL (8.4-10.2); Carbon Dioxide 29 mmol/L (22-29); Chloride 103 mmol/L (96-108); Creatinine Clr Calc Pharmacy 72.4; Estimated Glomerular Filt Rate > 60; Potassium 4.4 mmol/L (3.3-5.1); Sodium 140 mmol/L (135-145); Total Protein 6.7 g/dL (6.5-8.0)
[2025-02-18 07:49] LABS: Glucose, Whole Blood 87 mg/dL (60-115)
[2025-02-18 08:00] VITALS: BP 129/65; PULSE 57; RESP 14; TEMP 36.1; O2SAT 100
[2025-02-18] MEDS: Psyllium seed 3.7 GM PACKET PO (08:11)
[2025-02-18] MEDS: 0.9 % Sodium Chloride Flush 3 ML SYRINGE IVFLUSH (08:14)
--- NOTE | 2025-02-18 09:17 | PM.DS ---
DS: Providers Provider Date of Service: 02/18/25 Date of admission: 02/17/25 14:29 Date of discharge: 02/18/25 Primary care physician: KIMO Muñoz Consults: 02/17/25 14:32 Consult to Hematology / Oncology Routine Consulting Provider: [facility] [place]/Hematology Reason for consultation: Pancreatic mass DS: Diagnosis Discharge Diagnosis (1) Pancreatic mass: Status: Acute DS: Summary Hospital Course Hospital Course: HPI: This has a 79-year-old male with pertinent history of type 2 oif-fwbnkcz-uqlmwnlzu diabetes mellitus, hypertension, mixed hyperlipidemia, coronary artery disease status post stent who presents to the emergency department for evaluation of abdominal pain. Patient states his symptoms started 1 day prior to presentation. He started having lower abdominal discomfort which is generalized, intermittent, nonradiating and without any relieving factors. His last bowel movement was 2 days ago. He has been passing gas. Denies nausea or vomiting. Also admits 30 lb weight loss over the last 6 months. Does have poor appetite. No fever, chills, chest pain, palpitations, shortness of breath, changes in urinary habits. 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 Oncology was consulted who requested admission with MRCP. Hospital course: Patient's abdominal pain likely due to constipation. Imaging with large amount of stool. Patient was given osmotic agents and stimulant laxatives throughout hospitalization and he had a well-formed bowel movement prior to discharge with relief of abdominal discomfort. Also on CT scan, 4.9 x 2.4 x 2.9 cm mass noted in the body of pancreas, compatible with a adenocarcinoma and multiple hepatic metastasis. MRCP with concerns for metastatic disease, hepatic with questionable primary neoplasm in the body of pancreas. CA 19 9 ordered. Oncology was consulted who recommended outpatient CT-guided biopsy of liver lesion to establish diagnosis and stage of disease. Patient is hemodynamically stable to be discharged with close outpatient Oncology follow-up. Status at Discharge Functional status at discharge: independent ambulation Overall status at discharge: patient is progressing back to baseline Time Attestation Discharge Coordination Time (in mins): 25 minutes Quality: Safe Use of Opioids Does Pt have an Active Cancer Diagnosis on the Problem List?: No Quality: Stroke Does the patient have a stroke diagnosis?: No Physical Exam Exam: Exam: Elderly male lying in bed in no distress Neck supple, no JVD Regular rate and rhythm, S1-S2 heard Regular breath sounds bilaterally, no wheezing or crackles appreciated Abdomen soft nontender, no guarding, no rigidity Patient is awake, alert and oriented to self, place, time and person ; no focal motor deficit Psych: Normal mood No pedal edema Vital Signs: Vital Signs: Last Vital Signs Temp 96.9 F 02/18/25 08:00 Pulse 57 02/18/25 08:00 Resp 14 02/18/25 08:00 BP 129/65 02/18/25 08:00 Pulse Ox 100 02/18/25 08:00 O2 Del Method Room Air 02/18/25 08:00 BMI result Body Mass Index 24.0 DS: Data Data Completed and Pending Completed studies during hospitalization [Text1]: Procedures Supplement Left Inguinal Region with Synthetic Substitute, Open Approach (06/29/24) Labs on day of discharge: Laboratory Results - last 24 hr 02/17/25 02/17/25 02/17/25 08:25 10:29 16:00 WBC RBC Hgb Hct MCV MCH MCHC RDW Plt Count MPV Immature Gran % (Auto) Neut % (Auto) Lymph % (Auto) [place] % (Auto) Eos % (Auto) Baso % (Auto) Lymph # (Auto) [place] # (Auto) Eos # (Auto) Baso # (Auto) Abs Immat Gran (auto) Absolute Neuts (auto) Absolute Nucleated RBC Nucleated RBC % (auto) Hold Purple Top SEE NOTE PT 11.9 INR 1.0 Sodium Potassium Chloride Carbon Dioxide Anion Gap BUN Creatinine Estim Creat Clear Calc Estimated GFR POC Glucose Random Glucose Calcium Total Bilirubin 0.4 Direct Bilirubin 0.1 AST 35 ALT 67 H Alkaline Phosphatase 170 H Lactate Dehydrogenase 171 Total Protein 6.9 Albumin 4.5 Lipase 18 Carcinoembryonic Ag 7.50 Urine Color Yellow Urine Appearance Clear Urine pH 5.0 Ur Specific [place] >= 1.030 H Urine Protein Negative Urine Glucose (UA) >=1000 H Urine Ketones Trace Urine Blood Negative Urine Nitrite Negative Ur Leukocyte Esterase Negative Urine RBC 0-2 Urine WBC 0-5 Ur Squamous Epith Cells 0-2 Urine Bacteria None Seen Hyaline Casts 0-2 02/17/25 02/17/25 02/17/25 16:56 18:23 19:14 WBC RBC Hgb Hct MCV MCH MCHC RDW Plt Count MPV Immature Gran % (Auto) Neut % (Auto) Lymph % (Auto) [place] % (Auto) Eos % (Auto) Baso % (Auto) Lymph # (Auto) [place] # (Auto) Eos # (Auto) Baso # (Auto) Abs Immat Gran (auto) Absolute Neuts (auto) Absolute Nucleated RBC Nucleated RBC % (auto) Hold Purple Top PT INR Sodium Potassium Chloride Carbon Dioxide Anion Gap BUN Creatinine Estim Creat Clear Calc Estimated GFR POC Glucose 83 65 112 Random Glucose Calcium Total Bilirubin Direct Bilirubin AST ALT Alkaline Phosphatase Lactate Dehydrogenase Total Protein Albumin Lipase Carcinoembryonic Ag Urine Color Urine Appearance Urine pH Ur Specific [place] Urine Protein Urine Glucose (UA) Urine Ketones Urine Blood Urine Nitrite Ur Leukocyte Esterase Urine RBC Urine WBC Ur Squamous Epith Cells Urine Bacteria Hyaline Casts 02/18/25 02/18/25 05:04 07:22 WBC 7.9 RBC 4.32 L Hgb 14.1 Hct 42.0 MCV 97.2 MCH 32.6 MCHC 33.6 RDW 13.3 Plt Count 208 MPV 9.8 Immature Gran % (Auto) 0.1 Neut % (Auto) 54.4 Lymph % (Auto) 31.5 [place] % (Auto) 7.8 Eos % (Auto) 5.3 H Baso % (Auto) 0.9 Lymph # (Auto) 2.5 [place] # (Auto) 0.6 Eos # (Auto) 0.4 Baso # (Auto) 0.1 Abs Immat Gran (auto) 0.01 Absolute Neuts (auto) 4.3 Absolute Nucleated RBC 0.000 Nucleated RBC % (auto) 0.0 Hold Purple Top PT INR Sodium 140 Potassium 4.4 Chloride 103 Carbon Dioxide 29 Anion Gap 12 BUN 14 Creatinine 0.76 Estim Creat Clear Calc 72.4 Estimated GFR > 60 POC Glucose 87 Random Glucose 86 Calcium 9.0 D Total Bilirubin 0.7 Direct Bilirubin AST 33 ALT 54 H Alkaline Phosphatase 151 H Lactate Dehydrogenase Total Protein 6.7 Albumin 4.2 Lipase Carcinoembryonic Ag Urine Color Urine Appearance Urine pH Ur Specific [place] Urine Protein Urine Glucose (UA) Urine Ketones Urine Blood Urine Nitrite Ur Leukocyte Esterase Urine RBC Urine WBC Ur Squamous Epith Cells Urine Bacteria Hyaline Casts Imaging CT scan - abdomen: Radiologist's impression: ITS Impressions Abdomen/Pelvis CT 02/17/25 11:16 IMPRESSION: 1. 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 2. Multiple hepatic metastases. 3. These findings were discussed with KIMO Bennett in the emergency room on 02/09/2025 at 12:56 PM. 4. Possible 1.4 cm peripancreatic lymph node. 5. Large amount of stool throughout the colon. 6. Large fat-containing right inguinal hernia. Electronically signed by: Judson Maxwell MD 02/17/2025 01:01 PM EDT RP Cholangiopancreatography MRI 02/17/25 13:41 IMPRESSION: Concerning metastatic disease, hepatic with questionable primary neoplasm in the body of the pancreas. No cholelithiasis or choledocholithiasis. No ascites. Questionable tumor infiltration and to the inferior vena cava and main portal vein. Horseshoe kidney. Electronically signed by: Dayady Gibbons MD 02/17/2025 03:46 PM EDT RP Discharge Plan Discharge Anticipated Discharge Date/Time: 02/18/25 09:13 Patient Disposition: Home, Self-Care Discharge Diagnosis: Pancreatic mass Referrals: Bruna Salazar PA [Primary Care Provider, Orthopedics] - 1 Week Discharge Medications: Continued Jardiance 25 mg tablet 25 mg PO DAILY 90 Days Qty: 90 1RF metformin 1,000 mg tablet 1,000 mg PO BID 90 Days Qty: 180 1RF nitroglycerin 0.4 mg tablet, sublingual 0.4 mg sublingual Q5M PRN (Reason: chest pain) Qty: 30 1RF Rx Instructions: do not exceed 3 doses per episode atorvastatin 80 mg tablet 80 mg PO BEDTIME Qty: 90 3RF isosorbide mononitrate 60 mg tablet extended release 24 hr 30 mg PO BID-TID Qty: 135 3RF metoprolol succinate 100 mg tablet extended release 24 hr 100 mg PO DAILY@1900 lisinopril 5 mg tablet 5 mg PO DAILY@1900 Trulicity 1.5 mg/0.5 mL pen injector 1.5 mg subcut Q2W docusate sodium [Colace] 100 mg capsule 100 mg PO BID PRN (Reason: constipation) Qty: 30 0RF acetaminophen 325 mg Tablet 650 mg PO Q4H PRN (Reason: Pain) finasteride 5 mg tablet 5 mg PO DAILY (DME) blood sugar diagnostic Strip See Rx Instructions Not Applicable TID Qty: 10 Rx Instructions: As directed Ultra CoQ10 75 mg capsule 75 mg PO DAILY glimepiride 2 mg tablet 2 mg PO BID Discharge Orders: Discharge Order (Routine); Ordered 02/18/25 Ordered By: Poli Estrada Diet: Diabetic diet Activity on Discharge: As tolerated Stand Alone Forms: Patient Portal Discharge page Print Language: Wolof Other Ambulatory Orders: US biopsy liver (Routine) Timeframe: 1 Week Facility: [facility] - Location: Ultrasound Ordered By: Leilani Anguiano Care Plan Goals: Follow-up with PCP within 1 week Follow-up with oncology Health Concerns: Pancreatic mass concerning for adenocarcinoma Plan of Treatment: Will need CT-guided biopsy of liver lesion to establish diagnosis and stage of disease Bcsn-aud-ydopjiv medications as needed Assessment: As above
--- NOTE | 2025-02-18 09:20 | MHC.CM.PN ---
ptlives with is indepedent had no previous services pts car in parking lot dc plan home no services
== END 2025-02-18 09:54 | disposition home or self-care (01) | DRG 436 ==
LOC: HO.ED 14:01 → HO.EDOVER 14:29 → HO.S3 17:15
PROVIDERS: Internal Medicine; Physician Assistant; Admitting Provider Student in an Organized Health Care Education/Training Program; Emergency Provider Emergency Medicine; PCP Physician Assistant; Visit Provider Student in an Organized Health Care Education/Training Program
DX: C25.1 Malignant neoplasm of body of pancreas (principal); C78.7 Secondary malignant neoplasm of liver and intrahepatic bile duct; I25.10 Atherosclerotic heart disease of native coronary artery without angina pectoris; E11.65 Type 2 diabetes mellitus with hyperglycemia; K59.00 Constipation, unspecified; Z95.5 Presence of coronary angioplasty implant and graft; Z87.891 Personal history of nicotine dependence; Z79.84 Long term (current) use of oral hypoglycemic drugs; Z79.85 Long-term (current) use of injectable non-insulin antidiabetic drugs; Z79.899 Other long term (current) drug therapy
CPT/HCPCS: 36415; 74177; 74181; 80048; 80053; 80076; 81001; 82378; 82947; 83615; 83690; 85025; 85610; 86301; 99285; Q9967

== ENCOUNTER → 2025-02-17 10:21 | Outpatient (BNV) | payer MEDICARE, SELFPAY | PROVIDERS: Emergency Provider Emergency Medicine; PCP Physician Assistant; Visit Provider Radiology Diagnostic Radiology | DX: C25.1 Malignant neoplasm of body of pancreas (principal) | CPT/HCPCS: 74177 ==

== ENCOUNTER → 2025-02-17 14:29 | Outpatient (BNV) | payer MEDICARE, SELFPAY | PROVIDERS: Admitting Provider Student in an Organized Health Care Education/Training Program; Emergency Provider Emergency Medicine; PCP Physician Assistant; Visit Provider Student in an Organized Health Care Education/Training Program | DX: K86.89 Other specified diseases of pancreas (principal) | CPT/HCPCS: 99222; 99238 ==

== ENCOUNTER → 2025-02-17 14:29 | Outpatient (BNV) | payer MEDICARE, SELFPAY | PROVIDERS: Admitting Provider Student in an Organized Health Care Education/Training Program; Emergency Provider Emergency Medicine; PCP Physician Assistant; Visit Provider Internal Medicine | DX: C25.9 Malignant neoplasm of pancreas, unspecified (principal) | CPT/HCPCS: 99232 ==

== ENCOUNTER → 2025-02-19 11:02 | Outpatient (BNV) | payer MEDICARE, SELFPAY | PROVIDERS: Visit Provider Internal Medicine | DX: C25.9 Malignant neoplasm of pancreas, unspecified (principal); C78.7 Secondary malignant neoplasm of liver and intrahepatic bile duct | CPT/HCPCS: 99213; G2211 ==

== ENCOUNTER 2025-02-27 12:30 | Day surgery (SDC) | payer MEDICARE, SELFPAY ==
--- OUTSIDE RECORDS SUMMARY | 2025-02-25 11:17 | XMS_ITS | Patient Health Record ---
Author Organization [facility] Address [address] [place] [address] Care Team Providers Care Vineyard Supervisor Name Role Phone Jerrod Salinas Jr [phone] Reason For Referral No Information Plan Of Treatment No Information
--- OUTSIDE RECORDS SUMMARY | 2025-02-25 11:17 | XMS_ITS | Clinical Summary ---
Author Organization [facility] Address [address] [place] [address] Phone Care Team Providers Care Warehouse Insulation Worker Name Role Phone Osito Vernon MD Primary Care Provider [phone] Allergies No known active allergies Medications atorvastatin [...] Description 12/01/2025 11:30 AM EDT Office Visit [facility] Neurology [address] [place] [address] Kannan Mojica MD [address] [facility], [address]nd [place] [address] [email or web address] Health Maintenance Due Date Last Done Comments [...] file Insurance MEDICARE PART A & B [employer] SUPPLEMENT MEDICARE PART A & B [employer] MEDEX SUPPLEMENT MEDICARE PART A & B Member Subscriber Plan / Payer (Ef fective 2014-Present) Name:Alhaji Underwood Member ID:[id number] Relation to Subscriber:Self Name:Alhaji Underwood Subscriber ID:[id number] Payer ID:[id number] Group ID:Not on file Type:Medicare [facility]: [facility].[address] [address] [facility] MEDEX SUPPLEMENT MEDICARE PART A & B [employer] MEDEX SUPPLEMENT MEDICARE PART A & B [employer] MEDEX SUPPLEMENT MEDICARE PART A & B [employer] MEDEX SUPPLEMENT MEDICARE PART A & B [employer] MEDEX SUPPLEMENT MEDICARE PART A & B [employer] MEDEX SUPPLEMENT MEDICARE PART A & B [employer] MEDEX SUPPLEMENT Care Teams Warehouse Insulation Worker Relationship Specialty Start Date End Date Osito Vernon MD [address] [facility] [address] [place] [phone] [email or web address] PCP - General Family Medicine 05/14/18 Additional Source Comments The information contained in this document represents components of the legal health record. It is not the complete legal health record.[facility]
[2025-02-27] VITALS (14 sets, daily range): BP systolic 115–148; BP diastolic 60–85; PULSE 65–82; RESP 12–20; TEMP 36.3–36.9; O2SAT 97–100; BMI 23.6
--- NOTE | ~2025-02-27 | US_ITS ---
Clinical history: Liver lesions PROCEDURES: 1. Limited preprocedure ultrasound of the abdomen. Permanent images saved in PACS. 2. Ultrasound-guided biopsy of the right lobe liver lesion. 3. Limited preprocedure ultrasound of the abdomen. Permanent images saved in PACS. CLINICIANS: Max Francis NP MEDICATIONS: -Fentanyl , and lidocaine 1% 5 mL SQ -Antibiotics: None -For additional details, please see nursing flowsheet. COMPLICATIONS: None ESTIMATED BLOOD LOSS: < 5 ml CONTRAST: None SPECIMENS: 5 x 18 g cores were sent to pathology MODERATE SEDATION TIME: 0 min PROCEDURE NOTE: The procedure, risks, benefits, and alternatives were carefully explained to the patient and written informed consent was obtained. The patient was placed supine on the exam table. A timeout was performed. A limited ultrasound of the abdomen was performed to localize the right lobe liver lesion and choose appropriate needle entry and trajectory. The patient was prepped and draped in usual sterile fashion. The skin and deeper soft tissues were anesthetized with lidocaine. Under ultrasound guidance, a 17 gauge trocar needle was advanced to the liver lesion. An 18 gauge biopsy device was inserted through the trocar needle advanced into the liver lesion. A total of 5,18 gauge cores were performed. The specimens were placed in formalin. A total of 2 Gelfoam torpedoes were then administered through the trocar needle into the biopsy tract and at the level of the liver capsule. The needle was removed. A limited post procedure ultrasound was then performed. Images were saved in PACS. A dry dressing was applied and secured with Tegaderm. There were no immediate complications. The patient was stable after the procedure and was transferred to the post anesthesia care unit. The procedure was done under moderate sedation with a dedicated nurse for monitoring of vital signs. US/US biopsy liver Impression: Ultrasound-guided biopsy of a right lobe liver lesion. This procedure was performed by Max Francis NP and supervised by Raquel Lui MD . Electronically signed by: Nikolai Lui MD 02/28/2025 01:54 PM EDT RP
--- NOTE | 2025-02-27 14:07 | PC.NURSE ---
Ashutosh Francis DE ICER aware that patient took Jardiance yesterday and instructions (as written) were not given to patient to stop Jardiance. Patient did stop Trulicity as instructed. Patient educated that procedure can be done today with fentanyl and local as explained by ashutosh francis paper stacker (when updated of patient taking Jardiance yesterday) and patient in agreeance to have procedure today.
[2025-02-27] MEDS: Lidocaine HCl 1 % MPF 5 ML VIAL SUBCUT (14:59)
[2025-02-27 15:07] LABS: Glucose, Whole Blood 102 mg/dL (60-115)
== END 2025-02-27 16:44 | disposition home or self-care (01) ==
PROVIDERS: PCP Student in an Organized Health Care Education/Training Program; Visit Provider Internal Medicine
DX: C78.7 Secondary malignant neoplasm of liver and intrahepatic bile duct (principal); C25.9 Malignant neoplasm of pancreas, unspecified; R16.0 Hepatomegaly, not elsewhere classified; I25.10 Atherosclerotic heart disease of native coronary artery without angina pectoris; E11.21 Type 2 diabetes mellitus with diabetic nephropathy; I10 Essential (primary) hypertension; E78.5 Hyperlipidemia, unspecified; E55.9 Vitamin D deficiency, unspecified; E66.3 Overweight; Z68.23 Body mass index [BMI] 23.0-23.9, adult; Z95.5 Presence of coronary angioplasty implant and graft; Z98.890 Other specified postprocedural states; Z87.891 Personal history of nicotine dependence; Z79.85 Long-term (current) use of injectable non-insulin antidiabetic drugs; Z79.84 Long term (current) use of oral hypoglycemic drugs; Z79.899 Other long term (current) drug therapy
CPT/HCPCS: 47000; 76942; 82947; 86850; 86900; 86901; 88307; 88313; 88341; 88342; J2003; J2312; J3010

== ENCOUNTER → 2025-02-27 14:24 | Outpatient (BNV) | payer MEDICARE, SELFPAY | PROVIDERS: PCP Student in an Organized Health Care Education/Training Program | DX: K76.89 Other specified diseases of liver (principal) | CPT/HCPCS: 47000; 76705; 76942 ==

== ENCOUNTER 2025-03-03 11:33 | Outpatient (REF) | payer MEDICARE, SELFPAY ==
--- OUTSIDE RECORDS SUMMARY | 2025-03-03 12:09 | XMS_ITS | Patient Health Record ---
Author Organization [facility] Address [address] [place] [address] Care Team Providers Care Subwarehouse Supervisor Name Role Phone Jerrod Salinas Jr Reason For Referral No Information Plan Of Treatment No Information
--- OUTSIDE RECORDS SUMMARY | 2025-03-03 12:09 | XMS_ITS | Clinical Summary ---
Author Organization [facility] Address [address] [place] [address] Phone Care Team Providers Care Embroidery Cutter Name Role Phone Osito Vernon MD Primary Care Provider [phone] Allergies No known active allergies Medications atorvastatin [...] Description 12/01/2025 11:30 AM EDT Office Visit [facility] Neurology [address] [place] [address] Kannan Mojica MD [address] [facility] [place] [address] [email or web address] Health Maintenance Due Date Last Done Comments [...] file Insurance MEDICARE PART A & B [email or web address] SUPPLEMENT MEDICARE PART A & B [email or web address] MEDEX SUPPLEMENT MEDICARE PART A & B Member Subscriber Plan / Payer (Ef fective 2014-Present) Name:Alhaji Underwood Member ID:[id number] Relation to Subscriber:Self Name:Alhaji Underwood Subscriber ID:[id number] Payer ID:[id number] Group ID:Not on file Type:Medicare Address: [facility].[address] [address] [facility] MEDEX SUPPLEMENT MEDICARE PART A & B [email or web address] MEDEX SUPPLEMENT MEDICARE PART A & B [email or web address] MEDEX SUPPLEMENT MEDICARE PART A & B [email or web address] MEDEX SUPPLEMENT MEDICARE PART A & B [email or web address] MEDEX SUPPLEMENT MEDICARE PART A & B [email or web address] MEDEX SUPPLEMENT MEDICARE PART A & B [email or web address] MEDEX SUPPLEMENT Care Teams Embroidery Cutter Relationship Specialty Start Date End Date Osito Vernon MD [address] [facility] [address] [place] [phone] [email or web address] PCP - General Family Medicine 05/14/18 Additional Source Comments The information contained in this document represents components of the legal health record. It is not the complete legal health record.[facility]
[2025-03-03 12:11] LABS: INTERNATIONAL NORM RATIO 1.1 (0.9-1.1); Prothrombin Time 12.4 SEC (10.9-12.4)
[2025-03-03 12:41] LABS: HBS Num1 21.66 mIU/mL (0-7.99); HBc Num1 0.05 S/CO (0.00-0.79); HBsAGNum1 0.72 S/CO (0.00-0.99); Hepatitis B Surface Antigen Negative (Negative); ~Hepatitis B Surface Antibody REACTIVE (Nonreactive)
== END 2025-03-03 11:34 | disposition home or self-care (01) ==
LOC: HO.10HDL 11:33
PROVIDERS: Visit Provider Internal Medicine
DX: C25.9 Malignant neoplasm of pancreas, unspecified (principal); Z11.59 Encounter for screening for other viral diseases; Z72.89 Other problems related to lifestyle
CPT/HCPCS: 36415; 81232; 81350; 85610; 86704; 86706; 87340

== ENCOUNTER 2025-03-24 10:33 | Emergency (ER) | payer MEDICARE, SELFPAY ==
--- OUTSIDE RECORDS SUMMARY | 2025-03-17 15:06 | XMS_ITS | Encounter Summary ---
Author Organization [facility] Address [address] [place] [address] Care Team Providers Care Full Stack Software Engineer Name Role Phone Unavailable Primary Care Provider Unavailabl e Reason for Referral * Imaging (Routine) - Closed Specialty Diagnoses / Procedures Referred By Lamin t Referred To Contact Radiology Diagnoses Pancreatic mass Procedures PET CT Skull to Mid Thigh Initial Leilani Anguiano MD [address] [place] [address] HEMATOLOGY / [place] [address] Phone: tel: fax: [facility] Referral ID Status Reason Start Date Expiration Date Visits Re quested Visits Authorized [id number] Closed 03/14/2025 03/14/2026 1 1 Reason for Visit * Imaging (Routine) - Closed Specialty Diagnoses / Procedures Referred By Lamin day Referred To Contact Radiology Diagnoses Pancreatic mass Procedures PET CT Skull to Mid Thigh Initial Leilani Anguiano MD [address] [place] [address] HEMATOLOGY / [place] [address] Phone: tel: fax: [facility] Referral ID Status Reason Start Date Expiration Date Visits Re quested Visits Authorized [id number] Closed 03/14/2025 03/14/2026 1 1 Encounter Details Date Type Department Care Team (Latest Contact Info) Description 03/17/2025 3:06 PM EDT Hospital Encounter [facility] PET Scan [address] [place] [address] Pancreatic mass Social History Tobacco Use Types Packs/Day Years Used Date Smoking Tobacco: Never Assessed Sex and Gender Information Value Date Recorded Sex Assigned at Not on file Legal Sex Male 1:21 PM EDT Gender Identity Not on file Sexual Orientation Not on file documented as of this encounter Plan of Treatment Not on file documented as of this encounter Procedures Procedure Name Priority Date/Time Associated Diagnosis Comments PET CT SKULL TO MID THIGH INITIAL Routine 03/17/2025 5:09 PM EDT Pancreatic mass documented in this encounter Results * PET CT Skull to Mid Thigh Initial (03/17/2025 5:09 PM EDT) Anatomical Region Laterality Modality Body Radiographic Barbara ging 03/18/2025 3:14 PM EDT Impressions 03/18/2025 3:47 PM EDT Impression: Pancreatic mass with peripherally hypermetabolic liver metastases with central necrosis. 5 mm nodule in the right upper lobe is low-level FDG uptake, recommend follow-up with CT chest. -------- FINAL REPORT -------- Dictated By: Roge Fenton Dictated Date: 03/18/2025 15:14 ET Assigned Physician: Roge Fenton Reviewed and Electronically Signed By: Roge Fenton Signed Date: 03/18/2025 15:47 ET Workstation ID: [id number] Transcribed By: Self Edit Transcribed Date: 03/18/2025 15:14 ET Narrative 03/18/2025 3:[address] Scan CLINICAL HISTORY: PANCREATIC CANCER . Technique: The patient received an intravenous injection of fluorine 18 fluorodeoxyglucose. After a short delay a whole body PET scan was obtained from the skull base through midthighs. Additionally a low dose, unenhanced CT scan was acquired for attenuation correction and anatomic localization. The CT portion of the examination was done strictly for attenuation correction and is not a true diagnostic CT examination. Total DLP: 408 mGy/cm Blood glucose level in mg/dl: 152 FDG dose in mCi: 12 Comparison: Findings: Head and Neck: No hypermetabolic abnormality. Chest: There is low level FDG uptake within a 5 mm right upper lobe nodule. Recommend follow-up with chest CT.. Trace right pleural effusion Dense coronary artery calcifications. Abdomen and Pelvis: Numerous liver metastases scattered throughout most of demonstrate central photopenia/necrosis. Large necrotic lesion at the right hepatic dome SUVmax 6.17 as well as the inferior aspect of the liver SUVmax 6.14. Mass in the pancreatic neck with some central photopenia SUVmax = 5.63. Peripancreatic node anterior to head measuring 1.4 cm, SUVmax = 4.24 though there is some misregistration artifact which limits evaluation. Horseshoe kidney. Prostatomegaly. Prominent posterior bladder diverticulum. Musculoskeletal: Diffuse mild uptake without concerning hypermetabolic abnormality. Procedure Note Roge Fenton MD - 03/18/[address] Scan CLINICAL HISTORY: PANCREATIC CANCER . Technique: The patient received an intravenous injection of fluorine 18fluorodeoxyglucose. After a short delay a whole body PET scan wasobtained from the skull base through midthighs. Additionally a low dose,unenhanced CT scan was acquired for attenuation correction and anatomiclocalization. The CT portion of the examination was done strictly forattenuation correction and is not a true diagnostic CT examination. TotalDLP: 408 mGy/cm Blood glucose level in mg/dl: 152 FDG dose in mCi: 12 Comparison: Findings: Head and Neck: No hypermetabolic abnormality. Chest: There is low level FDG uptake within a 5 mm right upper lobenodule. Recommend follow-up with chest CT.. Trace right pleural effusionDense coronary artery calcifications. Abdomen and Pelvis: Numerous liver metastases scattered throughout most ofdemonstrate central photopenia/necrosis. Large necrotic lesion at the right hepatic dome SUVmax 6.17 as well as theinferior aspect of the liver SUVmax 6.14. Mass in the pancreatic neck with some central photopenia SUVmax = 5.63. Peripancreatic node anterior to head measuring 1.4 cm, SUVmax = 4.24though there is some misregistration artifact which limits evaluation.Horseshoe kidney. Prostatomegaly. Prominent posterior bladderdiverticulum. Musculoskeletal: Diffuse mild uptake without concerning hypermetabolicabnormality. IMPRESSION: Impression: Pancreatic mass with peripherally hypermetabolic liver metastases withcentral necrosis. 5 mm nodule in the right upper lobe is low-level FDG uptake, recommendfollow-up with CT chest. -------- FINAL REPORT -------- Dictated By: Roge Fenton Dictated Date: 03/18/2025 15:14 ET Assigned Physician: Roge Fenton Reviewed and Electronically Signed By: Roge Fenton Signed Date: 03/18/2025 15:47 ET Workstation ID: [id number] Transcribed By: Self Edit Transcribed Date: 03/18/2025 15:14 ET Leilani Anguiano MD IMR[facility] AL PROCEDURES Final Result documented in this encounter Visit Diagnoses Diagnosis Pancreatic mass Unspecified disease of pancreas documented in this encounter Administered Medications Inactive Administered Medications - up to 3 most recent administrations Medication Order MAR Action Action Date Dose Rate Site F-18 FDG pet diag radio-isotope injection 12 millicurie 12 millicurie, intravenous, Once in imaging, Starting on 03/17/25 at 1545, For 1 dose Given 03/17/2025 3:45 PM EDT 12 millicuries Left Antecubital documented in this encounter Orders Medications Ordered That Angel Luis ht Not Have Been Administered Count Last Ordered Date First Ordered Date F-18 FDG pet diag radio-isot ope injection 12 millicurie 1 03/17/2025 documented in this encounter
--- NOTE | ~2025-03-24 | XR_ITS ---
CLINICAL HISTORY: weakness 1 view chest x-ray Comparison: CR/SR - XR CHEST 2 VIEWS - 07/21/23 13:38 EST Findings: The lungs are clear. Heart size is normal. No acute fracture. IMPRESSION: 1. No acute findings. This document has been electronically signed by: Jerry Aguilar DO on 03/24/2025 12:54:28
[2025-03-24 10:39] VITALS: BP 118/70; PULSE 115; O2SAT 97
[2025-03-24 10:44] VITALS: BP 124/74; PULSE 108; RESP 18; TEMP 36.5; O2SAT 99; BMI 21.1
--- NOTE | 2025-03-24 11:00 | ED.GENADULT ---
HPI - General Adult General Chief complaint: General Medical Stated complaint: WEAKNESS, AMS Time Seen by Provider: 03/24/25 11:00 Source: patient and family Mode of arrival: EMS Limitations: no limitations History of Present Illness ED Provider: HPI narrative: 79-year-old male recent diagnosis of pancreatic cancer with liver metastases, follows Dr. Anguiano, currently on FOLFIRINOX, multiple other medical care we will problems such as diabetes, constipation presenting with weakness and slurred speech while speaking without any facial asymmetry or extremity asymmetry in movement, 3 days ago had 1st infusion. Patient denies abdominal pain, endorses generalized weakness, family reports decreased p.o. intake, increased lethargy. Related Data Home Medications ?Medication ?Instructions ?Recorded ?Confirmed blood sugar diagnostic #10 ea 06/15/20 03/05/25 coenzyme Q10 75 mg capsule (Ultra 75 mg PO DAILY 04/06/21 03/05/25 CoQ10) glimepiride 2 mg tablet 2 mg PO BID 09/25/23 03/05/25 dulaglutide 1.5 mg/0.5 mL 1.5 mg subcut Q2W 06/29/24 03/05/25 subcutaneous pen injector (Trulicity) metoprolol succinate 100 mg 100 mg PO DAILY@1900 06/29/24 03/05/25 tablet,extended release 24 hr acetaminophen 325 mg tablet 650 mg PO Q4H PRN Pain 02/17/25 03/05/25 finasteride 5 mg tablet 5 mg PO DAILY 02/17/25 03/05/25 Previous Rx's ?Medication ?Instructions ?Recorded empagliflozin 25 mg tablet 25 mg PO DAILY 90 days #90 tabs 01/20/22 (Jardiance) metformin 1,000 mg tablet 1,000 mg PO BID 90 days #180 tabs 01/20/22 nitroglycerin 0.4 mg sublingual 0.4 mg sublingual Q5M PRN chest 11/24/22 tablet pain #30 tabs atorvastatin 80 mg tablet 80 mg PO BEDTIME #90 tabs 04/04/24 docusate sodium 100 mg capsule 100 mg PO BID PRN constipation #30 07/01/24 (Colace) caps isosorbide mononitrate 60 mg 30 mg (1/2 x 60 mg) PO BID-TID 11/04/24 tablet,extended release 24 hr #135 tabs lisinopril 5 mg tablet 5 mg PO DAILY #90 tabs 02/18/25 tramadol 50 mg tablet 50 mg PO Q8H PRN Abdominal Pain 03/20/25 #30 tabs ondansetron 8 mg disintegrating 8 mg PO Q8H PRN Nausea #30 tabs 03/21/25 tablet Allergies Allergy/AdvReac Type Severity Reaction Status Date / Time No Known Allergies (NO KNOWN Allergy Unknown UNKNOWN Verified 03/24/25 10:47 ALLERGIES) Review of Systems Constitutional: Constitutional: Reports as per [facility] Past Medical History Medical History Vitamin D deficiency Overweight (BMI 25.0-29.9) CAD (coronary artery disease) Dyslipidemia Hypertension Diabetic nephropathy associated with type 2 diabetes mellitus Diabetes type 2, uncontrolled Surgical History History of left inguinal hernia repair (06/30/24) Stented coronary artery History of prostate surgery Hx of cardiac cath Family History Family History Father No problems noted. Mother No problems noted. Maternal Uncle Diabetes mellitus Family/Other Stomach cancer Social History Social History Household Members: Spouse Housing: House Are you a primary healthcare market consultant to a significant other at home: No Do you presently have visiting nurse or other home services: No Alcohol intake: current Alcohol intake frequency: holidays/special occasions only Alcohol type: beer Patient Tobacco Use Status: Former Tobacco user Tobacco use type: Cigarette Smoked in Last 30 Days: No Second Hand Smoke Exposure: No Use of substances other than those prescribed or required for medical reasons: No Substance Use Type: Marijuana Advance Directives: Yes Advance Directives on File: Yes Advance Directives Date on File: 02/21/25 Do you have a plan to hurt others: No Plan service: No Current occupational status: retired Physical Exam ED Vital Signs: Vital Signs - 24 hr 03/24/25 10:44 03/24/25 12:38 Temperature 97.7 F Pulse Rate 108 H 99 Respiratory Rate 18 16 Blood Pressure 124/74 134/74 Pulse Oximetry 99 99 Oxygen Delivery Method Room Air BMI result Body Mass Index 21.1 Const Other: Gen: ?Chronically ill-appearing HEENT: Dry oral mucosa Neck: Supple, no LAD CV: S1-S2 fast heart rate Resp: ?Moving air well no wheezing rales or rhonchi Abd: ?Bowel sounds are present, no tenderness no rebound no rigidity MSK: FROM, strength 5/5 all extremities Skin: Warm, dry, intact, Neuro: ?Lethargic but alert, no facial asymmetry, no obvious cranial nerve deficits, moving upper and lower extremities symmetrically Medications Administered Discontinued Medications Generic Name Dose Route Start Last Admin Trade Name Freq PRN Reason Stop Dose Admin Sodium Chloride 1,000 mls @ 999 mls/hr 03/24/25 11:45 03/24/25 12:25 Ns IV 03/24/25 12:45 999 mls/hr .Q1H1M GIFTY Administration Medical Decision Making Medical Decision Making MDM Narrative: Patient is tired appearing and obviously clinically dehydrated with dry oral mucosa decreased p.o. intake and slightly fast tachycardia, we will workup for neutropenia and associated potential infections, we will anticipate speaking with oncology, there was no evidence that patient had stroke-like presentation to necessitate further imaging such as CT. Disposition to be determined anticipating admission 14:38 patient has been re-evaluated, and care has been discussed with Dr. Anguiano, patient's heart rate improved, his mentation improved quite a bit to he is much better much more alert, he is not slurring his speech and so everything pointed towards dehydration, there was no leukocytosis no fevers no neutropenia, workup otherwise reassuring family feels comfortable with discharge we will give another L of fluids and discharge. Differential Diagnosis Differential Diagnoses: The differential diagnosis associated with the presentation includes (Neutropenia, dehydration, electrolyte derangements, pneumonia, UTI, stroke) Admission/Observation Consideration of admission/observation: Escalation of care including admission/observation considered 2022 Emergency Medicine Coding Guide from [email or web address] on 03/24/2025 All calculations should be rechecked by clinician prior to use RESULT SUMMARY: 5 Estimated Level of Service Problems: High (5) Risk: High (5) Data: Extensive (5) NARRATIVE MDM: This patient's problem complexity is High as patient: with chronic illness(es) with severe exacerbation/progression/side effects. This patient's risk is High due to: overall presentation requiring evaluation for a potentially High-risk process. This patient's data complexity is Extensive due to: -multiple tests ordered/reviewed -external notes reviewed -independent historian used to support history -independent interpretation of imaging or EKG INPUTS: Number and Complexity ?> 1 = 5: chronic illness w/severe exacerbation (a) Risk level ?> 4 = High Tests ordered ?> 3 = >= Tests results reviewed (excluding labs) ?> 2 = 2 Prior external notes reviewed ?> 1 = 1 Assessment requiring and independent historian ?> 1 = Yes Independent interpretation of tests ?> 1 = Yes Discussed management/test interpretation w/external professional ?> 0 = No Consult Healthcare Provider Management of the patient was discussed with: Hospitalist and Sales Operations Associate (Oncology) Lab Data MDM Lab Attestation statement: I reviewed the patient's lab results. 03/24/25 12:13 03/24/25 12:13 Labs: Lab Results 03/24/25 Range/Units 12:13 WBC 8.3 (4.8-10.8) X10*3/uL RBC 4.39 L (4.60-5.80) X10*6/uL Hgb 14.5 (14.0-18.0) g/dl Hct 41.4 L (42.0-52.0) % MCV 94.3 (80.0-98.0) fL MCH 33.0 (27.0-33.0) pg MCHC 35.0 (31.0-36.0) g/dl RDW 13.5 (11.0-16.0) % Plt Count 121 L D (160-400) X10*3/uL MPV 9.7 (9.4-12.4) fL Immature Gran % (Auto) 0.8 H (0.0-0.4) % Neut % (Auto) 92.7 H (45-73) % Lymph % (Auto) 3.8 L (20-40) % [place] % (Auto) 0.6 L (2-11) % Eos % (Auto) 2.0 (0-4) % Baso % (Auto) 0.1 (0-2) % Lymph # (Auto) 0.3 L (1.2-4.9) X10*3/uL [place] # (Auto) 0.1 (0.1-1.2) X10*3/uL Eos # (Auto) 0.2 (0.0-0.4) X10*3/uL Baso # (Auto) 0.0 (0.0-0.2) X10*3/uL Abs Immat Gran (auto) 0.07 H (0.00-0.03) X10*3/uL Absolute Neuts (auto) 7.7 (2.0-8.3) x10*3/uL Absolute Nucleated RBC 0.000 (0.0-0.012) X10*3/uL Nucleated RBC % (auto) 0.0 (0.0-0.2) /100WBC Smear Tech's Comments VERIFIED Sodium 139 (135-145) mmol/L Potassium 4.2 (3.3-5.1) mmol/L Chloride 100 (96-108) mmol/L Carbon Dioxide 21 L (22-29) mmol/L Anion Gap 22 H (12-20) BUN 24 H (9-16) mg/dL Creatinine 0.63 (0.5-1.4) mg/dL Estim Creat Clear Calc 80.6 Estimated GFR > 60 Random Glucose 146 H (60-115) mg/dL Lactic Acid 1.3 (0.5-2.0) mmol/L Calcium 9.1 (8.4-10.2) mg/dL Magnesium 2.2 (1.6-2.6) mg/dL Total Bilirubin 0.8 (0.0-1.0) mg/dL AST 62 H (5-37) U/L ALT 132 H (0-40) U/L Alkaline Phosphatase 428 H (39-117) U/L Total Protein 6.4 L (6.5-8.0) g/dL Albumin 3.8 (3.5-5.0) g/dL Lipase 9 (8-78) U/L COVID-19 ([facility]) Negative (Negative) COVID-19 Clin Com See Note Independent Interpretation I performed an independent interpretation of an: EKG (102 bpm otherwise normal ECG without dysrhythmia, AV lilly blocks or ST-T changes to suspect underlying ACS, my independent interpretation) and Plain X-Ray (My independent chest xray interpretation: Lungs: Lungs are clear bilaterally without evidence of focal consolidation, pleural effusion, or pneumothorax. Cardiac silhouette is unremarkable, no obvious mediastinal widening, no obvious bony abnormalities such as fractures. Impression: Normal chest X-r) Radiology Impression Discussion of test interpretation with radiology: I have reviewed the radiologist's reading. (No acute findings) Independent Historian Clinical information obtained from an independent historian. History obtained from or confirmed by: Spouse External Record Review External record reviewed: Office record Prescription Management I considered prescription management with: Antibiotic Chronic Conditions Patient?s care impacted by: Cancer Critical Care Time Critical Care Time Total Critical Care Time: 35 Attestation: Time is exclusive of separately billable procedures. Time includes: direct patient care, patient reassessment, coordination of patient care, interpretation of data (laboratory data, pulse oximetry, arterial blood gases and chest xrays), review of patient's medical records, medical consultation and documentation of patient care. Procedures excluded from critical care time: central intravenous line placement and electrocardiography. Discharge Plan Discharge Clinical Impression: Acute dehydration, Pancreatic cancer Instructions: Dehydration (ED) Additional Instructions: I reached out to Dr. Anguiano up to update of the workup, improvement in her mental status, chest x-ray, EKG, urinalysis reassuring blood work urine was suspicious for dehydration, you received fluids, continue hydrating at home, anything worse please come back to the ER. Prescriptions: No Action Jardiance 25 mg tablet 25 mg PO DAILY 90 Days Qty: 90 1RF metformin 1,000 mg tablet 1,000 mg PO BID 90 Days Qty: 180 1RF nitroglycerin 0.4 mg tablet, sublingual 0.4 mg sublingual Q5M PRN (Reason: chest pain) Qty: 30 1RF Rx Instructions: do not exceed 3 doses per episode atorvastatin 80 mg tablet 80 mg PO BEDTIME Qty: 90 3RF isosorbide mononitrate 60 mg tablet extended release 24 hr 30 mg PO BID-TID Qty: 135 3RF lisinopril 5 mg tablet 5 mg PO DAILY Qty: 90 3RF metoprolol succinate 100 mg tablet extended release 24 hr 100 mg PO DAILY@1900 Trulicity 1.5 mg/0.5 mL pen injector 1.5 mg subcut Q2W docusate sodium [Colace] 100 mg capsule 100 mg PO BID PRN (Reason: constipation) Qty: 30 0RF tramadol 50 mg Tablet 50 mg PO Q8H PRN (Reason: Abdominal Pain) Qty: 30 0RF ondansetron 8 mg Tablet,Disintegrating 8 mg PO Q8H PRN (Reason: Nausea) Qty: 30 0RF acetaminophen 325 mg Tablet 650 mg PO Q4H PRN (Reason: Pain) finasteride 5 mg tablet 5 mg PO DAILY (DME) blood sugar diagnostic Strip See Rx Instructions Not Applicable TID Qty: 10 Rx Instructions: As directed Ultra CoQ10 75 mg capsule 75 mg PO DAILY glimepiride 2 mg tablet 2 mg PO BID Print Language: Serbian
--- OUTSIDE RECORDS SUMMARY | 2025-03-24 11:11 | XMS_ITS | Patient Health Record ---
Author Organization [facility] Address [address] [place] [address] Care Team Providers Care [place] Name Role Phone Jerrod Salinas Jr [phone] Reason For Referral No Information Plan Of Treatment No Information
--- OUTSIDE RECORDS SUMMARY | 2025-03-24 11:11 | XMS_ITS | Clinical Summary ---
Author Organization [facility] Address [address] [place] [address] Phone Care Team Providers Care Content Publisher Name Role Phone Unavailable Primary Care Provider Unavailabl e Encounters Date Type Department Care Team Description 03/17/2025 3:06 PM EDT Hospital Encounter [facility] PET Scan [address] [place] [address] Pancreatic mass from Last 3 Months Social History Tobacco Use Types Packs/Day Years Used Date Smoking Tobacco: Never Assessed Sex and Gender Information Value Date Recorded Sex Assigned at Not on file Legal Sex Male 1:21 PM EDT Gender Identity Not on file Sexual Orientation Not on file Plan of Treatment Health Maintenance Due Date Last Done Comments Zoster Vaccines (2 of 2) 12/31/2023 11/05/2023 Depression Screening 07/24/2024 COVID-19 Vaccine ( season) 2024 04/13/2024, 11/05/2023, 04/21/2023, Additional history exists Cholesterol Screening (Lipid Panel) 03/14/2025 Falls Risk Assessment 03/14/2025 Medicare Annual Wellness Visit 03/14/2025 Social Influencers of Health Screening 03/14/2025 Influenza Vaccine (#1) 2025 , 04/24/2023, 06/01/2022, Additional history exists DTaP,Tdap,and Td Vaccines (2 - Td or Tdap) 11/29/2027 11/28/2017 Pneumococcal Vaccine: 50+ Years Completed 12/04/2018, 11/28/2017 RSV Immunization Adult Patients Completed 04/24/2023 HIB Vaccines Aged Out No longer eligi ble based on patient's age to complete this topic HPV Vaccines Aged Out No longer eligi ble based on patient's age to complete this topic Hepatitis A Vaccines Aged Out No long er eligible based on patient's age to complete this topic Hepatitis B Vaccines Aged Out No long er eligible based on patient's age to complete this topic IPV Vaccines Aged Out No longer eligi ble based on patient's age to complete this topic MMR Vaccines Aged Out No longer eligi ble based on patient's age to complete this topic Meningococcal ACWY Vaccine Aged Out N o longer eligible based on patient's age to complete this topic Meningococcal B Vaccine Aged Out No l onger eligible based on patient's age to complete this topic RSV Immunization Patients Under 20 months Aged Out No longer eligible based on patient's age to complete this topic Varicella Vaccines Aged Out No longer eligible based on patient's age to complete this topic Procedures Procedure Name Priority Date/Time Associated Diagnosis Comments PET CT SKULL TO MID THIGH INITIAL Routine 03/17/2025 5:09 PM EDT Pancreatic mass from Last 3 Months Results * PET CT Skull to Mid [...] Signed Date: 03/18/2025 15:47 ET Workstation ID: [id number] Transcribed By: Self Edit Transcribed Date: 03/18/2025 [...] Signed Date: 03/18/2025 15:47 ET Workstation ID: [id number] Transcribed By: Self Edit Transcribed Date: 03/18/2025 15:14 ET [facility]ilani Anguiano MD [facility] Final Result from Last 3 Months Insurance MEDICARE [facility]
--- OUTSIDE RECORDS SUMMARY | 2025-03-24 11:11 | XMS_ITS | Encounter Summary ---
Author Organization [facility] Address [address] [place] [address] Phone Care Team Providers Care Certified Adapted Physical Educator Name Role Phone Sindhu Valerio Primary Care Provider [phone] Sindhu Valerio Unavailable Rakan Rodríguez MD Unavailable [phone] Leilani Anguiano MD Unavailable [phone] Encounter Details Date Type Department Care Team (Late st Contact Info) Description 03/05/2025 Orders Only [facility] [place] [address] [place] [address] Rakan Rodríguez MD [address] [place] [address] [email or web address] Pancreatic adenocarcinoma (Primary Dx) Social History Tobacco Use Types Packs/Day Years [...] Information Value Date Recorded Sex Assigned at Male 03/05/2025 8:20 AM EDT Legal Sex Male 10:09 PM EDT Gender Identity Male 03/05/2025 8:20 AM EDT Sexual Orientation Straight 03/05/2025 8: 20 AM EDT documented as of this encounter Plan of Treatment Upcoming Encounters Date Type Department Care Team (Late st Contact Info) Description 12/01/2025 11:30 AM EDT Office Visit [facility] Neurology [address] [place] [address] Kannan Mojica MD [address] [facility] [place] [address] [email or web address] documented as of this encounter Visit Diagnoses Diagnosis Pancreatic adenocarcinoma- Primary Malignant neoplasm of pancreas, part unspecified documented in this encounter Care Teams Certified Adapted Physical Educator Relationship Specialty Start Date End Date Sindhu Valerio PA [address] [place] [address] PCP - General Physician Medical Billing Service 03/05/25 Sindhu Valerio PA [address] [place] [address] Referring Physician Physician Medical Billing Service 03/05/25 Rakan Rodríguez MD [address] [place] [id number] [email or web address] Oncology 03/18/25 Leilani Anguiano MD [address] [place] [id number] [email or web address] Internal Medicine 03/05/25 documented as of this encounter Additional Source Comments The information contained in this document represents components of the legal health record. It is not the complete legal health record.[facility]
--- OUTSIDE RECORDS SUMMARY | 2025-03-24 11:12 | XMS_ITS | Clinical Summary ---
Author Organization [facility] Address [address] [place] [address] Phone Care Team Providers Care [employer] Consultant Name Role Phone Sindhu Valerio Primary Care Provider [phone] Sindhu Valerio Unavailable Justino Rodríguez MD Unavailable [phone] Leilani Anguiano MD Unavailable [phone] Allergies No known active allergies Medications atorvastatin [...] times a day with meals. Active lisinopril (PRINIVIL,ZESTR IL) 40 MG tablet Take 20 mg by mouth daily. Active pioglitazone (ACTOS) 45 MG tablet Take 45 mg by mouth daily. Active JARDIANCE 25 mg tablet Take 25 mg by mouth daily. 5 Active metoprolol succinate (TOPROL-XL) 100 MG 24 hr tablet Take 100 mg by mouth daily. 07/17/202 5 Active mirtazapine (REMERON) 15 MG tabletIndicatio ns:Poor appetite Take 0.5 tablets (7.5 mg total) by mouth nightly at bedtime. 15 tablet Active metoprolol succinate (TOPROL-XL) 50 MG 24 hr tablet Take 50 mg by mouth daily. 03/18/20 Discontinu ed(Duplica te order) Active Problems Problem Noted Date Diagnosed Date Stented coronary artery 03/18/2025 Pancreatic cancer metastasized to liver 03/18/20 CAD (coronary artery disease) 06/07/2018 Diabetes type 2, controlled 07/24/2004 Encounters Date Type Department Care Team Description 03/18/2025 4:30 PM EDT Office Visit [facility], [facility] [place] [address] [place] [address] Justino Rodríguez MD Pancreatic cancer metastasized to liver (Primary Dx); Poor appetite 03/18/2025 Orders Only [facility], [address] [place] [address] Justino Rodríguez MD Pancreatic cancer metastasized to liver (Primary Dx) 03/18/2025 Orders Only [facility], [address] [place] [address] Justino Rodríguez MD Pancreatic cancer metastasized to liver (Primary Dx) 03/18/2025 Ancillary Orders [facility] IMG OUTSIDE IMG [address] [place] [id number] Jsutino Rodríguez MD 03/17/2025 Ancillary Procedure DF IMG OUTSIDE IMG [address] [place] [id number] Justino Rodríguez MD Arrived 03/11/2025 2:01 PM EDT - 03/11/2025 11:59 PM EDT Hospital Encounter [facility], [address] [address] Discharge Disposition: Home or Self Care 03/05/2025 Orders Only [facility], [address] [facility] [place] [address] Justino Rodríguez MD Pancreatic adenocarcinoma (Primary Dx) from Last 3 Months Family History Medical History Relation Comments Stomach cancer Maternal Cousin Diabetes type II Maternal Uncle Relation Status Comments Maternal Cousin Alive Maternal Uncle Social History Tobacco Use Types Packs/Day Years Used Date Smoking Tobacco: Former Cigarettes 0.3 10 0 07/28/1964 - 07/28/1972 Smokeless Tobacco: Never Alcohol Use Standard Drinks/Week Comments Yes 3 (1 standard drink = 0.6 oz pur e alcohol) Child or Family Care Answer Date Record ed Do you have problems with on e of the following making it difficult for you to work, study, or receive health care? No 03/13/2025 Education Answer Date Recorded Are you interested in more education? Not on mandi e 11/18/2022 Are you concerned about learning? Not on file 11/18/2022 No 11/18/2022 No 11/18/2022 Food Answer Date Recorded Within the past 6 months we worried whether our food would run out before we got money to buy more. Never True 03/13/2025 Within the past 6 months the food we bought just didn't last and we didn't have enough money to get more. Never True Residential Stability Answer Date Recor ded What is your housing situation today? I have virgil sing 03/13/2025 How many times have you move d in the past 12 months? Zero (I did not move) 03/13/2025 Paying for Meds Answer Date Recorded Do you have trouble paying for medicines? No 03/13/2025 Paying Utility Bills Answer Date Record ed Do you have trouble paying your heating or elect ricity bill? No 03/13/2025 Transportation Answer Date Recorded Has the lack of transportati on kept you from medical appointments or from getting medications? No 03/13/2025 Digital Access Answer Date Recorded No 12/17/2022 No 12/17/2022 Reliable internet access at home? Not on file 12/17/2022 Device with a working camera? Not on file Sex and Gender Information Value Date Recorded Sex Assigned at Male 03/05/2025 8:20 AM EDT Legal Sex Male 10:09 PM EDT Gender Identity Male 03/05/2025 8:20 AM EDT Sexual Orientation Straight 03/05/2025 8: 20 AM EDT Last Filed Vital Signs Vital Sign Reading Time Taken Comments Blood Pressure 101/71 03/18/2025 4:06 PM EDT Pulse 90 03/18/2025 4:06 PM EDT Temperature 36.3 C (97.4 F) 03/18/2025 4:06 PM EDT Respiratory Rate 16 03/18/2025 4:06 PM EDT Oxygen Saturation 99% 03/18/2025 4:06 PM EDT Inhaled Oxygen Concentration - - Weight 62.8 kg (138 lb 7.2 oz) 03/18/2025 4:06 P M EDT Height 169.5 cm (5' 6.73 ) 03/18/2025 4:06 PM ED T Body Mass Index 21.86 03/18/2025 4:06 PM EDT Plan of Treatment Upcoming Encounters Date Type Department Care Team (Late st Contact Info) Description 12/01/2025 11:30 AM EDT Office Visit [facility] Neurology [address] [place] [address] Kannan Mojica MD [address] [facility], 2nd [place] [address] [email or web address] Health Maintenance Due Date Last Done Comments CREATININE LEVEL 1945 HEMOGLOBIN A1C 1945 POTASSIUM LEVEL 1945 DEPRESSION SCREENING 1956 HEPATITIS A VACCINES (1 of 2 - Risk 2-dose series) 1963 ZOSTER VACCINES (2 of 2) 12/31/2023 11/05/2023 INFLUENZA VACCINE (#1) 2025 , 04/24/2023, 06/01/2022, Additional history exists DIABETIC EYE EXAM 03/18/2025 COVID-19 VACCINE ( season) 2025 04/13/2024, 11/05/2023, 04/21/2023, Additional history exists BLOOD PRESSURE 09/18/2025 03/18/2025 Adult Td,Tdap Booster 11/29/2027 11/28/2017 PNEUMOCOCCAL VACCINES (50+ years) Completed 12/04/2018, 11/28/2017 RSV VACCINE Completed 04/24/2023 SMOKING STATUS SCREENING (Once After 26 Yrs) Completed 03/18/2025 HIB VACCINES Aged Out No longer eligi ble based on patient's age to complete this topic MENINGOCOCCAL VACCINES (ACWY) Aged Out No longer eligible based on patient's age to complete this topic MENINGOCOCCAL VACCINES (B) Aged Out N o longer eligible based on patient's age to complete this topic Medical Devices Not on file Procedures Procedure Name Priority Date/Time Associated Diagnosis Comments PAIRED TUMOR/GERMLINE - BLOOD ORDER (REQUIRED) Routine 03/18/2025 5:10 PM EDT Pancreatic cancer metastasized to liver OUTSIDE IMAGING 03/17/2025 NM PET WHOLE BODY OUTSIDE (NO INTERPRETATION) Routine 03/17/2025 12:00 AM EDT OUTSIDE LAB 03/03/2025 OUTSIDE PATHOLOGY REVIEW Routine 02/27/2025 12:00 AM EDT OUTSIDE PATHOLOGY 02/27/2025 OUTSIDE LAB 02/27/2025 OUTSIDE PROCEDURE 02/27/2025 OUTSIDE LAB 02/18/2025 from Last 3 Months Results * Outside Imaging Report Only (03/17/2025) us Scanning Interface Provider IMG XR CHEST Mary Kate l Result * NM PET Whole Body Outside (No Interpretation) (03/17/2025 12:00 AM EDT) Other Narrative [facility] - 03/18/2025 11:38 AM EDT This study is for PACS storage only and not for interpretation. us Justino Rodríguez MD IMG OUTSIDE IMAGING W/OUT INT ERPRETATION Final Result [facility] * Outside Lab (03/03/2025) Only the most recent of3 resultswithin the time period is included. us Scanning Interface Provider LAB BLOOD ORDERABLES Final Result * Outside Procedure (02/27/2025) us Scanning Interface Provider PROCEDURE/MINOR SURG ICAL PERFORMABLES Final Result * Outside Pathology (02/27/2025) us Scanning Interface Provider PATHOLOGY ORDERABLES Final Result * Outside Pathology Review (02/27/2025 12:00 AM EDT) 02/27/2025 03/11/2025 Narrative [facility] - 03/20/2025 2:33 PM EDT CASE: [id number] PATIENT: ROSA [place] Date: 1945 Sex: Male [facility] Department of Pathology [address] [place] [address] [employer] License No.: [id number] Fish Worm Grower: Dr. Olegario Whitaker MD, PhD Physician: JUSTINO RODRÍGUEZ MD Addended Report Resident: Janie Kunz MD, MS Pathologist: Levi Lucero M.D. PATHOLOGIC DIAGNOSIS: CONSULT SLIDES FROM [facility] [place], [place] A. 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 Immunohistochemistry performed at the outside institution and reviewed at [facility] demonstrates the following staining profile in lesional cells: Positive - CK7 Negative - CK20 Note: Additional material has been requested for MTAP and Claudin 18.2 immunohistochemistry, results of which will be reported in an addendum. CLINICAL DATA: History: None provided TISSUE SUBMITTED: Consult slides. GROSS DESCRIPTION: Received from [facility], Department of Pathology, [address] [place] [address], [place] [address], are three (3) slides. Three (3) stained slides are labeled [id number] and sublabeled A1 , CK20 and CK7 which correspond to a liver, right lesion, biopsy obtained on 02/27/25, according to the accompanying pathology report bearing the patient's name and date of . By his/her signature below, the senior physician certifies that he/she personally conducted a microscopic examination ( gross only exam if so stated) of the described specimen(s) and rendered or confirmed the diagnosis(es) related thereto. Final Diagnosis by Levi Lucero M.D., is a paraffin block, labeled [id number] and sublabeled A1 which corresponds to the above case. Immunohistochemistry for MTAP performed at [facility] shows that it is RETAINED in the tumor cells. This finding is associated with an intact MTAP gene by molecular analysis. Claudin 18.2 immunohistochemistry performed at [facility] shows tbvndjwg-ye-mzemqm staining intensity in 0% of tumor cells. Ivvhiget-ds-strirb staining of 75% of tumor cells or more is considered positive (reference below). Staining of this tumor was performed using antibody [id number] (Sigma), which was cross-validated using control slides provided by [employer]. Reference: Annemarie Henry, et al. The Lancet, 2023, 401, 7475-7761. The immunoperoxidase, immunofluorescence and in-situ hybridization tests performed at [facility] were developed and their performance characteristics determined by the Immunohistochemistry Laboratories in the Department of Pathology at [facility]. They have not been cleared or approved by the U.S. Food and Drug Administration (FDA). Addendum #1 by Darrel Villa M.D., Ph.D., Electronically signed on February at 02:32:35PM us Justino Rodríguez MD PATHOLOGY ORDERABLES Edited R esult - Final [facility] [address] [place] [id number] from Last 3 Months Insurance MEDICARE PART A & B [employer] MEDEX SUPPLEMENT MEDICARE PART A & B [employer] MEDEX SUPPLEMENT MEDICARE PART A & B Member Subscriber Plan / Payer (Ef fective 2014-Present) Name:Rosa [place] Member ID:[id number] Relation to Subscriber:Self Name:Rosa [place] Subscriber ID:[id number] Payer ID:[id number] Group ID:Not on file Type:Medicare Address: [employer] [address] [place] [id number] [employer] MEDEX SUPPLEMENT MEDICARE PART A & B [employer] MEDEX SUPPLEMENT MEDICARE PART A & B [employer] MEDEX SUPPLEMENT MEDICARE PART A & B [employer] MEDEX SUPPLEMENT MEDICARE PART A & B [employer] MEDEX SUPPLEMENT MEDICARE PART A & B [employer] MEDEX SUPPLEMENT MEDICARE PART A & B [employer] MEDEX SUPPLEMENT Advance Directives For more information, please contact: [phone] (9AM - 5PM [facility], Monday-Monday) Documents on File Type Date Recorded Patient Research Assistant Expl anation Healthcare Proxy 03/20/2025 7:10 AM Proxy Care Teams [employer] Consultant Relationship Specialty Start Date End Date Sindhu Valerio PA [address] [place] [phone] PCP - General Physician Bag Bleacher 03/05/25 Sindhu Valerio PA [address] [place] [phone] Referring Physician Physician Bag Bleacher 03/05/25 Justino Rodríguez MD [address] [place] [phone] [email or web address] Medical Oncology 03/18/25 Leilani Anguiano MD [address] [place] [phone] [email or web address] Internal Medicine 03/05/25 Additional Source Comments The information contained in this document represents components of the legal health record. It is not the complete legal health record.[facility]
--- OUTSIDE RECORDS SUMMARY | 2025-03-24 11:12 | XMS_ITS | Encounter Summary ---
Author Organization [facility] Address [address] [place] [address] Phone Care Team Providers Care Wood Stainer Name Role Phone Osito Vernon MD Primary Care Provider [phone] Sindhu Valerio Primary Care Provider [phone] Sindhu Valerio Unavailable Rakan Rodríguez MD Unavailable [phone] Leilani Anguiano MD Unavailable [phone] Encounter Details Date Type Department Care Team (Late st Contact Info) Description 05/14/2018 Procedure Pass [facility] Endoscopy Admitting Dept Virtual Department [address] [place] [id number] Social History Tobacco Use Types Packs/Day Years [...] Description 12/01/2025 11:30 AM EDT Office Visit [facility] Neurology [address] [place] [address] [place] [address] Kannan Mojica MD [address] [facility] 2nd [place] [address] [email or web address] documented as of this encounter Visit Diagnoses Not on filedocumented in this encounter Care Teams Wood Stainer Relationship Specialty Start Date End Date Osito Vernon MD [address] [facility] [address] [place] [phone] [email or web address] PCP - General Family Medicine 05/14/18 03/04/25 Sindhu Valerio PA [address] [place] [address] PCP - General Physician Cnc Operator Machinist 03/05/25 Sindhu Valerio PA [address] [place] [address] Referring Physician Physician Cnc Operator Machinist 03/05/25 Rakan Rodríguez MD [address] [place] [id number] [email or web address] Medical Oncology 03/18/25 Leilani Anguiano MD [address] [place] [phone] [email or web address] Internal Medicine 03/05/25 documented as of this encounter Additional Source Comments The information contained in this document represents components of the legal health record. It is not the complete legal health record.[facility]
--- NOTE | 2025-03-24 11:34 | ECG_ITS ---
Test Reason : WEAKNESSS Blood Pressure : */* mmHG Vent. Rate : 102 BPM Atrial Rate : 102 BPM P-R Int : 160 ms QRS Dur : 98 ms QT Int : 344 ms P-R-T Axes : 32 66 52 degrees QTcB Int : 448 ms Sinus tachycardia Low voltage QRS Borderline ECG When compared with ECG of 30-Jun-2024 10:50, Vent. rate has increased by 43 bpm Referred By: Rosalio Hamm Electronically Signed By: Milan Zazueta
[2025-03-24 12:27] LABS: Hematocrit 41.4 % (42.0-52.0); Hemoglobin 14.5 g/dl (14.0-18.0); Imm Gran Abs Auto 0.07 X10*3/uL (0.00-0.03); Imm Gran Pct Auto 0.8 % (0.0-0.4); Lymphocytes Absolute Auto 0.3 X10*3/uL (1.2-4.9); MANUAL DIFF FLAG SCAN; Mean Corpuscular HGB Conc 35.0 g/dl (31.0-36.0); Mean Corpuscular Hemoglobin 33.0 pg (27.0-33.0); Mean Corpuscular Volume 94.3 fL (80.0-98.0); NRBC Abs Auto 0.000 X10*3/uL (0.0-0.012); NRBC Pct Auto 0.0 /100WBC (0.0-0.2); Platelet Count 121 X10*3/uL (160-400); Red Blood Count 4.39 X10*6/uL (4.60-5.80); SCAN SMEAR FLAG 1; White Blood Count 8.3 X10*3/uL (4.8-10.8)
--- NOTE | 2025-03-24 12:27 | PC.NURSE ---
patient a&o/lethargic/pale. rr equal/non labored- lungs diminished, manager wireless intact sinus tach on monitor, ekg performed, pt difficult stick- attempted access multiple times without success, US guided IV was placed by US trained nurse, pt currently denies pain/discomfort, cxr being performed, call heaton within reach, family at bedside, fall precautions in place, plan of care ongoing
[2025-03-24 12:37] LABS: COVID-19 Test Negative (Negative); IDNOW Serial# 55D5AD1C
[2025-03-24 12:38] VITALS: BP 134/74; PULSE 99; RESP 16; O2SAT 99
[2025-03-24 12:50] LABS: Alanine Aminotransferase 132 U/L (0-40); Albumin Level 3.8 g/dL (3.5-5.0); Alkaline Phosphatase 428 U/L (39-117); Anion Gap 22 (12-20); Aspartate Amino Transferase 62 U/L (5-37); Blood Urea Nitrogen 24 mg/dL (9-16); Calcium 9.1 mg/dL (8.4-10.2); Carbon Dioxide 21 mmol/L (22-29); Chloride 100 mmol/L (96-108); Creatinine Clr Calc Pharmacy 80.6; Estimated Glomerular Filt Rate > 60; Lipase 9 U/L (8-78); Magnesium 2.2 mg/dL (1.6-2.6); Potassium 4.2 mmol/L (3.3-5.1); Sodium 139 mmol/L (135-145); Total Protein 6.4 g/dL (6.5-8.0)
[2025-03-24] MEDS: Lactated Ringers 1,000 ML 1000 ML IV (14:30)
--- NOTE | 2025-03-24 14:45 | PC.NURSE ---
patient a&ox3, much more awake at this time, pt states hes feeling better, additional bag of IVF started per request of provider, wood stainer remains nsr, family at bedside, call heaton within reach, plan of care ongoing
[2025-03-24 15:50] VITALS: BP 126/70; PULSE 92; RESP 16; O2SAT 99
[2025-03-24 16:37] VITALS: BP 127/73; PULSE 95; RESP 16; TEMP 36.4; O2SAT 98
== END 2025-03-24 16:38 | disposition home or self-care (01) ==
PROVIDERS: Emergency Provider Emergency Medicine; PCP Student in an Organized Health Care Education/Training Program
DX: C25.9 Malignant neoplasm of pancreas, unspecified (principal); E86.0 Dehydration; R47.81 Slurred speech; R53.1 Weakness
CPT/HCPCS: 71045; 80053; 83605; 83690; 83735; 85025; 87040; 87635; 93005; 96360; 99284; 99285; J7120

== ENCOUNTER → 2025-03-24 11:33 | Outpatient (BNV) | payer MEDICARE, SELFPAY | PROVIDERS: Emergency Provider Emergency Medicine; PCP Student in an Organized Health Care Education/Training Program; Visit Provider Family Medicine | DX: R53.1 Weakness (principal) | CPT/HCPCS: 71045 ==

== ENCOUNTER → 2025-03-24 11:34 | Outpatient (BNV) | payer MEDICARE, SELFPAY | PROVIDERS: Emergency Provider Emergency Medicine; PCP Student in an Organized Health Care Education/Training Program; Visit Provider Internal Medicine Cardiovascular Disease | DX: R00.0 Tachycardia, unspecified (principal) | CPT/HCPCS: 93010 ==

== ENCOUNTER 2025-03-27 08:55 | Inpatient (IN) | payer MEDICARE, SELFPAY ==
--- NOTE | ~2025-03-27 | XR_ITS ---
EXAMINATION: XR CHEST CLINICAL INFORMATION: AMS COMPARISON: March 24, 2025 TECHNIQUE: Frontal view of the chest was obtained. FINDINGS: No consolidation, pleural effusion or pneumothorax. No hyperinflation. Cardiomediastinal silhouette size is normal. Multilevel thoracic and upper lumbar stenosis. Sclerosis along the articular surface of the acromioclavicular joint and glenohumeral joint. Well-corticated calcifications in the inferior left glenohumeral joint and at the left supraspinatus tendon insertion. XR/XR chest 1V IMPRESSION: No acute airspace disease. Stable chest. Calcific tendinosis/tendinopathy, left supraspinatus tendon. 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 Electronically signed by: Dayday Gibbons MD 03/27/2025 09:43 AM EDT
[2025-03-27 09:01] VITALS: BP 123/71; BP 131/71; PULSE 85; PULSE 90; RESP 13; TEMP 36.6; O2SAT 98; O2SAT 99; BMI 21.0
--- NOTE | 2025-03-27 09:11 | ECG_ITS ---
Test Reason : AMS Blood Pressure : */* mmHG Vent. Rate : 89 BPM Atrial Rate : 89 BPM P-R Int : 158 ms QRS Dur : 96 ms QT Int : 376 ms P-R-T Axes : 33 46 61 degrees QTcB Int : 457 ms Normal sinus rhythm Low voltage QRS Borderline ECG When compared with ECG of 24-Mar-2025 11:47, No significant change was found Referred By: Generic ED Physician Electronically Signed By: Milan Zazueta
--- NOTE | 2025-03-27 09:27 | PC.NURSE ---
79 M presents to ED with increased confusion, dysphagia. Pt is not talking or answering questions but normally talks per family. Pt has terminal pancreatic cancer, last chemo was on Monday. Pt was here on Monday for dehydration per family. RR even and unlabored, no visible s/s of distress. Pt not able to respond whether he is having any pain at this time.
--- NOTE | 2025-03-27 09:28 | ED_ITS ---
HPI - General Adult General Chief complaint: Altered Mental Status Stated complaint: Altered cancer pt, chemo last fri, dyphagia Time Seen by Provider: 03/27/25 09:28 Source: patient and family ( and neighbor) Mode of arrival: ambulatory Limitations: altered mental status History of Present Illness ED Provider: Vikki Morales PA-C HPI narrative: Patient is a 79 year old assigned male at with a history of pancreatic adenocarcinoma presenting to the emergency department today with altered mental status. Patient was recently diagnosed with pancreatic cancer and has been steadily declining since. Patient's states that the patient was seen by [facility] and they got a second opinion at [facility] who recommended pallative chemo of which he had his first session on 03/21/2025. Patient's states that the patient has been increasingly confused and having increased difficulty swallowing with no appetite. Related Data Home Medications ?Medication ?Instructions ?Recorded ?Confirmed blood sugar diagnostic #10 ea 06/15/20 03/05/25 coenzyme Q10 75 mg capsule (Ultra 75 mg PO DAILY 04/0603/05/25 CoQ10) glimepiride 2 mg tablet 2 mg PO BID 09/25/23 5 dulaglutide 1.5 mg/0.5 mL 1.5 mg subcut Q2W 06/29/24 0 03/05/25 subcutaneous pen injector (Trulicity) metoprolol succinate 100 mg 100 mg PO DAILY@1900 06/2903/05/25 tablet,extended release 24 hr acetaminophen 325 mg tablet 650 mg PO Q4H PRN Pain 03/05/25 finasteride 5 mg tablet 5 mg PO DAILY 02/17/2503/05 Previous Rx's ?Medication ?Instructions ?Recorded empagliflozin 25 mg tablet 25 mg PO DAILY 90 days #90 tabs 01/20/22 (Jardiance) metformin 1,000 mg tablet 1,000 mg PO BID 90 days #180 tabs 01/20/22 nitroglycerin 0.4 mg sublingual 0.4 mg sublingual Q5M PRN chest 11/24/22 tablet pain #30 tabs atorvastatin 80 mg tablet 80 mg PO BEDTIME #90 tabs docusate sodium 100 mg capsule 100 mg PO BID PRN const ipation #30 12/09/24 (Colace) caps isosorbide mononitrate 60 mg 30 mg (1/2 x 60 mg) PO BI D-TID 11/04/24 tablet,extended release 24 hr #135 tabs lisinopril 5 mg tablet 5 mg PO DAILY #90 tabs 02/18 tramadol 50 mg tablet 50 mg PO Q8H PRN Abdominal P ain 03/20/25 #30 tabs ondansetron 8 mg disintegrating 8 mg PO Q8H PRN Nausea #30 tabs 03/21/25 tablet Allergies Allergy/AdvReac Type Severity Reaction Status Date / Time No Known Allergies (NO KNOWN Allergy Unknown UNKNOWN Verified 03/27/25 09:09 ALLERGIES) Review of Systems 2 Constitutional: Constitutional: Reports as per HPI Eyes: Eyes: Reports as per HPI ENT: Reports as per HPI Cardiovascular: Cardiovascular: Reports as per HPI Respiratory: Respiratory: Reports as per HPI Gastrointestinal: Gastrointestinal: Reports as per HPI Genitourinary: Genitourinary: Reports as per HPI Musculoskeletal: Musculoskeletal: Reports as per HPI Integumentary/Breasts: Skin/Breast: Reports as per HPI Neurologic: Reports as per HPI Psychiatric: Psychiatric: Reports as per HPI Endocrine: Endocrine: Reports as per HPI Hematologic/Lymphatic: Hematologic/Lymphatic: Reports as per HPI Allergic/Immunologic: Allergic/Immunologic: Reports as per HPI [facility] Past Medical History Attestation statement: The following information was validated with the patient. (all information validated with the patient's ) Source: old records reviewed, obtained from family (patient's provided additional history) and nursing notes reviewed Medical History Vitamin D deficiency Overweight (BMI 25.0-29.9) CAD (coronary artery disease) Dyslipidemia Hypertension Diabetic nephropathy associated with type 2 diabetes mellitus Diabetes type 2, uncontrolled Surgical History History of left inguinal hernia repair (06/30/24) Stented coronary artery History of prostate surgery Hx of cardiac cath Family History Family History Father No problems noted. Mother No problems noted. Maternal Uncle Diabetes mellitus Family/Other Stomach cancer Social History Social History Household Members: Spouse Housing: House Are you a primary career resource technician to a significant other at home: No Do you presently have visiting nurse or other home services: No Alcohol intake: current Alcohol intake frequency: holidays/special occasions only Alcohol type: beer Patient Tobacco Use Status: Former Tobacco user Tobacco use type: Cigarette Smoked in Last 30 Days: No Second Hand Smoke Exposure: No Use of substances other than those prescribed or required for medical reasons: No Substance Use Type: Marijuana Advance Directives: Yes Advance Directives on File: Yes Advance Directives Date on File: 02/21/25 Do you have a plan to hurt others: No Plan service: No Current occupational status: retired Physical Exam ED Vital Signs: Vital Signs - 24 hr 03/27/25 09:01 03/27/25 10:12 03/27/25 10:56 Temperature 97.8 F Pulse Rate 90 101 H Respiratory Rate 13 15 14 Blood Pressure 131/71 148/81 H Pulse Oximetry 98 100 Oxygen Delivery Method Room Air Room Air 03/27/25 12:10 Temperature Pulse Rate 87 Respiratory Rate 13 Blood Pressure Pulse Oximetry 98 Oxygen Delivery Method Room Air BMI result Body Mass Index 21.0 Const General: cooperative, no acute distress and lethargic Nutritional Appearance: cachectic Orientation/consciousness: lethargic HENMT Head: Yes normal to inspection and Yes atraumatic Ears: hearing grossly normal bilaterally and external ears normal General nose exam: Normal external nose present, no nasal discharge noted and no epistaxis Face and sinus: Yes normal facial exam, No abrasion and No laceration Mouth: Normal oral and palatal mucosa present, no drooling and no muffled voice Eyes General: appearance normal, both eyes and all related structures Periorbital: periorbital findings normal Eyelids: Yes eyelids normal Conjunctivae: conjunctivae normal Pupils: Equal, round and reactive pupils present EOM: EOMs intact bilaterally Neck Neck: Yes normal visual inspection and Yes full ROM Resp Effort & Inspection: normal respiratory effort and able to speak in complete sentences Neuro General: moves all extremities and CN's II-XI intact bilaterally Cranial nerves: Yes Equal, round and reactive pupils present Extrem General: Yes normal to inspection, Yes full ROM and Yes capillary refill normal Psych Thought process: Normal thought process present Medications Administered Generic Name Dose Route Start Last Admin Trade Name Freq PRN Reason Stop Dose Admin Sodium Chloride 1,000 mls @ 150 mls/hr 03/27/25 11:15 03/27/25 11:03 Ns IV 03/27/25 17:54 150 mls/hr .[id number] GIFTY Administration Discontinued Medications Generic Name Dose Route Start Last Admin Trade Name Jaelyn PRN Reason Stop Dose Admin Diazepam 2.5 mg 03/27/25 10:51 03/27/25 10:56 Diazepam 10 Mg/2 Ml Cartridge IVPUSH 03/27/25 10:52 2.5 mg STAT STA Administration Fentanyl 50 mcg 03/27/25 13:35 03/27/25 13:39 Fentanyl Citrate/Pf 100 Mcg/2 Ml Vial IVPUSH 03/27/25 13:36 50 mcg ONCE ONE Administration Protocol Morphine Sulfate 4 mg 03/27/25 10:51 03/27/25 10:56 Morphine Sulfate 4 Mg/Ml Cartridge IVPUSH 03/27/25 10:52 4 mg ONCE ONE Administration Protocol Medical Decision Making Medical Decision Making MDM Narrative: Patient is a 79 year old assigned male at with a history of pancreatic adenocarcinoma presenting to the emergency department today with altered mental status. Patient's physical exam showed an acutely confused individual that is lethargic and cachetic appearing. Patient's blood work showed worsening elevated LFTs as well as elevated troponin levels. Patient's EKG was unremarkable. Patient's chest x-ray showed no acute process. I explained my physical exam findings as well as all test results to the patient, the patient's , and the patient's daughter. I answered all questions asked by the patient, the patient's , and the patient's daughter. I had an extensive conversation with the patient's and daughter about their goals of care for the patient. Together, through shared decision making, we determined comfort measures only / DNR+DNI / and home hospice would be the most appropriate for the patient at this time. I spoke with Case Management who arranged for the patient to be evaluated by the hospice team. Hospice came and evaluated the patient and plan to have them under their service on MondayMarch 31. I explained to the family that while they await to be placed under Hospice's care and get their home set up for him to return - I will admit the patient to the hospital for continued comfort measures. I spoke with the hospitalist team who agreed to admission for continued comfort measures. Differential Diagnosis Differential Diagnoses: The differential diagnosis associated with the presentation includes Failure to thrive Terminal illness Pancreatic cancer Admission/Observation Consideration of admission/observation: Escalation of care including admission/observation considered Patient admitted as noted in the MDM Rationale portion of this note. Consult Healthcare Provider Management of the patient was discussed with: Hospitalist (agreed to admission as noted in the MDM Rationale portion of this note. ) Lab Data [facility] Lab Attestation statement: I reviewed the patient's lab results. My interpretation of these results are in the MDM Rationale portion of this note. 03/27/25 09:22 03/27/25 09:20 Labs: Lab Results 03/27/25 03/27/25 03/27/25 Range/Units 09:20 09:21 09:22 WBC Cancelled 6.2 RBC Cancelled 3.95 L Hgb Cancelled 13.0 L Hct Cancelled 36.8 L MCV Cancelled 93.2 MCH Cancelled 32.9 MCHC Cancelled 35.3 RDW Cancelled 13.0 Plt Count Cancelled 46 L D MPV Cancelled 10.2 Immature Gran % (Auto) Cancelled Cancelled Neut % (Auto) Cancelled Cancelled Lymph % (Auto) Cancelled Cancelled Gove % (Auto) Cancelled Cancelled Eos % (Auto) Cancelled Cancelled Baso % (Auto) Cancelled Cancelled Lymph # (Auto) Cancelled Cancelled Gove # (Auto) Cancelled Cancelled Eos # (Auto) Cancelled Cancelled Baso # (Auto) Cancelled Cancelled Abs Immat Gran (auto) Cancelled Cancelled Absolute Neuts (auto) Cancelled Cancelled Absolute Nucleated RBC Cancelled 0.000 Nucleated RBC % (auto) Cancelled 0.0 Neutrophils % (Manual) 85 H (45-73) % Band Neutrophils % 5 (3-5) % Lymphocytes % (Manual) 5 L (20-40) % Monocytes % (Manual) 2 (2-11) % Eosinophils % (Manual) 2 (0-4) % Metamyelocytes % 1 % Abs Neuts (Manual) 5.6 (2.0-8.3) X10*3/uL Lymphocytes # (Manual) 0.3 L (1.2-4.9) X10*3/uL Monocytes # (Manual) 0.1 (0.1-1.2) X10*3/uL Eosinophils # (Manual) 0.1 (0.0-0.4) X10*3/uL Metamyelocytes # 0.1 X10*3/uL Smudge Cells PRESENT Toxic Vacuolation PRESENT Platelet Estimate DECREASED (NORMAL) Large Platelets PRESENT Plt Morphology Comment NOTED RBC Morphology NOTED Fulda Cells 1+ (0-2) /OIF Acanthocytes (Spur) 1+ (0-2) /OIF PT 15.1 H D (10.9-12.4) SEC INR 1.3 H (0.9-1.1) Sodium 133 L (135-145) mmol/L Potassium 4.8 (3.3-5.1) mmol/L Chloride 96 (96-108) mmol/L Carbon Dioxide 22 (22-29) mmol/L Anion Gap 20 (12-20) BUN 13 (9-16) mg/dL Creatinine 0.60 (0.5-1.4) mg/dL Estim Creat Clear Calc 87.0 Estimated GFR > 60 Random Glucose 73 (60-115) mg/dL Lactic Acid 1.2 (0.5-2.0) mmol/L Calcium 8.3 L D (8.4-10.2) mg/dL Magnesium 1.9 (1.6-2.6) mg/dL Total Bilirubin 1.0 (0.0-1.0) mg/dL AST 65 H (5-37) U/L ALT 73 H (0-40) U/L Alkaline Phosphatase 572 H (39-117) U/L Troponin I High Sens 93.1 H D (<3.5-35.0) ng/L Total Protein 5.9 L (6.5-8.0) g/dL Albumin 3.0 L (3.5-5.0) g/dL COVID-19 (MARSHALL) Negative (Negative) COVID-19 Clin Com See Note Influenza Type A (AMEYA) Negative (Negative) Influenza Type B (AMEYA) Negative (Negative) Influenza A & B Note See Note 03/27/25 Range/Units 11:42 WBC RBC Hgb Hct MCV MCH MCHC RDW Plt Count MPV Immature Gran % (Auto) Neut % (Auto) Lymph % (Auto) Gove % (Auto) Eos % (Auto) Baso % (Auto) Lymph # (Auto) Gove # (Auto) Eos # (Auto) Baso # (Auto) Abs Immat Gran (auto) Absolute Neuts (auto) Absolute Nucleated RBC Nucleated RBC % (auto) Neutrophils % (Manual) (45-73) % Band Neutrophils % (3-5) % Lymphocytes % (Manual) (20-40) % Monocytes % (Manual) (2-11) % Eosinophils % (Manual) (0-4) % Metamyelocytes % % Abs Neuts (Manual) (2.0-8.3) X10*3/uL Lymphocytes # (Manual) (1.2-4.9) X10*3/uL Monocytes # (Manual) (0.1-1.2) X10*3/uL Eosinophils # (Manual) (0.0-0.4) X10*3/uL Metamyelocytes # X10*3/uL Smudge Cells Toxic Vacuolation Platelet Estimate (NORMAL) Large Platelets Plt Morphology Comment RBC Morphology Fulda Cells /OIF Acanthocytes (Spur) /OIF PT (10.9-12.4) SEC INR (0.9-1.1) Sodium (135-145) mmol/L Potassium (3.3-5.1) mmol/L Chloride (96-108) mmol/L Carbon Dioxide (22-29) mmol/L Anion Gap (12-20) BUN (9-16) mg/dL Creatinine (0.5-1.4) mg/dL Estim Creat Clear Calc Estimated GFR Random Glucose (60-115) mg/dL Lactic Acid (0.5-2.0) mmol/L Calcium (8.4-10.2) mg/dL Magnesium (1.6-2.6) mg/dL Total Bilirubin (0.0-1.0) mg/dL AST (5-37) U/L ALT (0-40) U/L Alkaline Phosphatase (39-117) U/L Troponin I High Sens 108.7 H* (<3.5-35.0) ng/L Total Protein (6.5-8.0) g/dL Albumin (3.5-5.0) g/dL COVID-19 (MARSHALL) (Negative) COVID-19 Clin Com Influenza Type A (AMEYA) (Negative) Influenza Type B (AMEYA) (Negative) Influenza A & B Note Independent Interpretation I performed an independent interpretation of an: EKG and Plain X-Ray Interpretation: My interpretation is in agreement with the radiologist's impression of this imaging study. L EXAMINATION: XR CHEST CLINICAL INFORMATION: AMS COMPARISON: March 24, 2025 TECHNIQUE: Frontal view of the chest was obtained. FINDINGS: No consolidation, pleural effusion or pneumothorax. No hyperinflation. Cardiomediastinal silhouette size is normal. Multilevel thoracic and upper lumbar stenosis. Sclerosis along the articular surface of the acromioclavicular joint and glenohumeral joint. Well-corticated calcifications in the inferior left glenohumeral joint and at the left supraspinatus tendon insertion. XR/XR chest 1V IMPRESSION: No acute airspace disease. Stable chest. Calcific tendinosis/tendinopathy, left supraspinatus tendon. 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 Electronically signed by: Dayday Gibbons MD 03/27/2025 09:43 AM EDT Dictated By: Dayday Daniel MD Signed By: Electronically signed by Dayday Mendez MD 03/27/25 0943 I independently interpreted this EKG and am in agreement with the below findings: Vent. Rate: 89 BPM Atrial Rate: 89 BPM P-R Int: 158 ms QRS Dur: 96 ms QT Int: 376 ms P-R-T Axes: 33 46 61 degrees QTcB Int: 457 ms Normal sinus rhythm Low voltage QRS When compared with ECG of 24-Mar-2025 11:47, No significant change was found Electronically Signed By: Milan Zazueta Dictated By: Milan Zazueta MD Signed By: Electronically signed by Milan Zazueta MD 03/27/25 1212 Radiology Impression Discussion of test interpretation with radiology: I have reviewed the radiologist's reading. Independent Historian Clinical information obtained from an independent historian. History obtained from or confirmed by: Spouse (patient's provided additional history) and Other (patient's daughter provided additional history) External Record Review External record reviewed: Office record Critical Care Time Critical Care Time Critical Care Time: Yes Total Critical Care Time: 48 Attestation: I spent 48 minutes of Critical Care Time with this patient. This does not include time spent on separately reported billable procedures. Discharge Plan Discharge Clinical Impression: Adult failure to thrive, Pancreatic cancer Patient Disposition: Admitted As Inpatient Print Language: Lao
[2025-03-27 09:46] LABS: INTERNATIONAL NORM RATIO 1.3 (0.9-1.1); Prothrombin Time 15.1 SEC (10.9-12.4)
[2025-03-27 09:48] LABS: Hematocrit 36.8 % (42.0-52.0); Hemoglobin 13.0 g/dl (14.0-18.0); Mean Corpuscular HGB Conc 35.3 g/dl (31.0-36.0); Mean Corpuscular Hemoglobin 32.9 pg (27.0-33.0); Mean Corpuscular Volume 93.2 fL (80.0-98.0); NRBC Abs Auto 0.000 X10*3/uL (0.0-0.012); NRBC Pct Auto 0.0 /100WBC (0.0-0.2); Red Blood Count 3.95 X10*6/uL (4.60-5.80); White Blood Count 6.2 X10*3/uL (4.8-10.8)
[2025-03-27 09:55] LABS: COVID-19 Test Negative (Negative); IDNOW Serial# 08D9AD1C
[2025-03-27 10:03] LABS: IDNOW Serial# 6674DD1D; Influenza B2 Negative (Negative)
[2025-03-27 10:05] LABS: Troponin-I High Sensitivity 93.1 ng/L (<3.5-35.0)
[2025-03-27 10:10] LABS: Alanine Aminotransferase 73 U/L (0-40); Albumin Level 3.0 g/dL (3.5-5.0); Alkaline Phosphatase 572 U/L (39-117); Anion Gap 20 (12-20); Aspartate Amino Transferase 65 U/L (5-37); Blood Urea Nitrogen 13 mg/dL (9-16); Calcium 8.3 mg/dL (8.4-10.2); Carbon Dioxide 22 mmol/L (22-29); Chloride 96 mmol/L (96-108); Creatinine Clr Calc Pharmacy 87.0; Estimated Glomerular Filt Rate > 60; Magnesium 1.9 mg/dL (1.6-2.6); Potassium 4.8 mmol/L (3.3-5.1); Sodium 133 mmol/L (135-145); Total Protein 5.9 g/dL (6.5-8.0)
[2025-03-27 10:12] VITALS: BP 148/81; PULSE 101; RESP 15; O2SAT 100
[2025-03-27 10:14] LABS: Platelet Count 46 X10*3/uL (160-400)
[2025-03-27 10:15] LABS: Acanthocytes 1+ (0-2) /OIF; Band Neutrophils Percent 5 % (3-5); Burr Cells 1+ (0-2) /OIF; Eosinophils Absolute Manual 0.1 X10*3/uL (0.0-0.4); Eosinophils Percent Manual 2 % (0-4); Large Platelet PRESENT; Lymphocytes Absolute Manual 0.3 X10*3/uL (1.2-4.9); Lymphocytes Percent Manual 5 % (20-40); Metamyelocytes Absolute 0.1 X10*3/uL; Metamyelocytes Percent 1 %; Monocytes Absolute Manual 0.1 X10*3/uL (0.1-1.2); Monocytes Percent Manual 2 % (2-11); Neutrophils Absolute Manual 5.6 X10*3/uL (2.0-8.3); Neutrophils Percent Manual 85 % (45-73); RBC Morphology NOTED
[2025-03-27 10:16] LABS: Smudge Cells PRESENT; Toxic Vacuolation PRESENT
--- OUTSIDE RECORDS SUMMARY | 2025-03-27 10:24 | XMS_ITS | Clinical Summary ---
Author Organization [facility] Address [address] [place] [address] Phone Care Team Providers Care Salesperson Yard Goods Name Role Phone Sindhu Valerio Primary Care Provider [phone] Sindhu Valerio Unavailable Justino Rodríguez MD Unavailable [phone] Leilani Anguiano MD Unavailable [phone] Allergies No known active allergies Medications [...] EDT [facility] Visit [facility], [facility] [address] [facility] [address] 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 (Primary Dx) 03/18/2025 Ancillary Orders [facility] OUTSIDE IMG [address] [place] [id number] Justino Rodríguez MD 03/17/2025 Ancillary Procedure [facility] OUTSIDE IMG [address] [place] [id number] Justino Rodríguez MD Arrived 03/11/2025 2:01 PM EDT - 03/11/2025 11:59 PM EDT Hospital Encounter [facility], [address] [address] Discharge Disposition: Home or Self Care 03/05/2025 Orders Only [facility], [address] [facility] [place] [address] Justino Rodríguez MD Pancreatic adenocarcinoma (Primary Dx) [...] Description 12/01/2025 11:30 AM EDT Office Visit [facility]rology [address] [place] [address] Kannan Mojica MD [address] [facility] [facility] [place] [address] [email or web address] Health Maintenance Due Date [...] (02/27/2025 12:00 AM EDT) 02/27/2025 03/11/2025 Narrative [facility] - 03/20/2025 2:33 PM EDT CASE: [id number] PATIENT: ROSA UNDERWOOD Date: 1945 Sex: Male [facility] Department of Pathology [address] [place] [address] [place] License No.: [id number] Fire Boat Engineer: Dr. Olegario Whitaker MD, PhD Physician: JUSTINO RODRÍGUEZ MD Addended Report Resident: Janie Kunz MD, MS Pathologist: Levi Lucero M.D. PATHOLOGIC DIAGNOSIS: CONSULT SLIDES FROM [facility] [place], [place] A. LIVER, RIGHT LESION, BIOPSY ([id number]; 02/27/25): ADENOCARCINOMA, poorly differentiated, consistent with spread from a pancreatic primary (see note). Immunohistochemistry performed at the outside institution and reviewed at [facility] demonstrates the following staining profile in lesional cells: Positive - CK7 Negative - CK20 Note: Additional material has been requested for MTAP and Claudin 18.2 immunohistochemistry, results of which will be reported in an addendum. CLINICAL DATA: History: None provided TISSUE SUBMITTED: Consult slides. GROSS DESCRIPTION: Received from [facility], Department of Pathology, [address] [place] [address], [place] [address], are three (3) slides. Three (3) stained slides are labeled [id number] and sublabeled A1 , CK20 and CK7 [...] Lucero M.D., is a paraffin block, labeled [id number] and sublabeled A1 which corresponds to the above case. Immunohistochemistry for MTAP performed at [facility] shows that it is RETAINED in the tumor cells. This finding is associated with an intact MTAP gene by molecular analysis. Claudin 18.2 immunohistochemistry performed at [facility] shows tuakvuxt-au-bvgajr staining intensity in 0% of tumor cells. Jrbfnvdb-mn-xyboyj staining of 75% of tumor cells or more is considered positive (reference below). Staining of this tumor was performed using antibody [id number] (Sigma), which was cross-validated using control slides provided by [employer]. Reference: Annemarie Henry, et al. The Lancet, 2023, 401, 6027-9062. The immunoperoxidase, immunofluorescence and in-situ hybridization tests performed at [facility] were developed and their performance characteristics determined by the Immunohistochemistry Laboratories in the Department of Pathology at [facility]. They have not been cleared or approved by the U.S. Food and Drug Administration (FDA). Addendum #1 by Darrel Villa M.D., Ph.D., Electronically signed on February at 02:32:35PM us Justino Rodríguez MD PATHOLOGY ORDERABLES Edited R esult - Final [facility] [address] [place] [phone] from Last 3 Months Insurance MEDICARE PART A & B [employer] SUPPLEMENT MEDICARE PART A & B [employer] SUPPLEMENT MEDICARE PART A & B Member Subscriber Plan / Payer (Ef fective 2014-Present) Name:Rosa Underwood Member ID:[id number] Relation to Subscriber:Self Name:Rosa Underwood Subscriber ID:[id number] Payer ID:[id number] Group ID:Not on file Type:Medicare Address: [place] [address] [place] [id number] [employer] MED[employer] SUPPLEMENT MEDICARE PART A & B [employer] SUPPLEMENT MEDICARE PART A & B [employer] SUPPLEMENT MEDICARE PART A & B [employer] MEDEX SUPPLEMENT MEDICARE PART A & B [employer] MED[employer] SUPPLEMENT MEDICARE PART A & B [employer]UE [employer]OSS MEDEX SUPPLEMENT MEDICARE PART A & B [employer] CROSS MEDEX SUPPLEMENT Advance Directives For more information, please contact: [phone] (9AM - 5PM Monica/[facility], Monday-Monday) Documents on File Type Date Recorded Patient Chemist Expl anation Healthcare Proxy 03/20/2025 7:10 AM Proxy Care Teams Salesperson Yard Goods Relationship Specialty Start Date End Date Sindhu Valerio PA [address] [place] [address] PCP - General Physician Client Service Coordinator 03/05/25 Sindhu Valerio PA [address] [place] [address] Referring Physician Physician Client Service Coordinator 03/05/25 Justino Rodríguez MD [address] [place] [phone] [email or web address] Medical Oncology 03/18/25 Leilani Anguiano MD [address] [place] [phone] [email or web address] Internal Medicine 03/05/25 Additional Source Comments The information contained in this document represents components of the legal health record. It is not the complete legal health record.[facility]
--- OUTSIDE RECORDS SUMMARY | 2025-03-27 10:24 | XMS_ITS | Clinical Summary ---
Author Organization [facility] Address [address] [place] [address] Phone Care Team Providers Care Laborer Plumbing Name Role Phone Unavailable Primary Care Provider Unavailabl e Encounters Date Type Department Care Team Description 03/17/2025 3:06 PM EDT - 03/17/2025 11:59 PM EDT Hospital Encounter [facility] PET Scan [address] [place] [address] Pancreatic mass Discharge Disposition: Home or Self Care from Last 3 Months Social History Tobacco [...] of 2) 12/31/2023 11/05/2023 Depression Screening 07/24/2024 Cholesterol Screening (Lipid Panel) 03/14/2025 Falls Risk Assessment 03/14/2025 Medicare Annual Wellness Visit 03/14/2025 Social Influencers of Health Screening 03/14/2025 COVID-19 Vaccine ( season) 2025 04/13/2024, 11/05/2023, 04/21/2023, Additional history exists Influenza Vaccine (#1) 2025 , 04/24/2023, 06/01/2022, [...] Signed Date: 03/18/2025 15:47 ET Workstation ID: [id number] Transcribed By: Self Edit Transcribed Date: 03/18/2025 [...] Signed Date: 03/18/2025 15:47 ET Workstation ID: [id number] Transcribed By: Self Edit Transcribed Date: 03/18/2025 15:14 ET Leilani Anguiano MD IMG NM PROCEDURES Final Result from Last 3 Months Insurance MEDICARE [facility]
--- OUTSIDE RECORDS SUMMARY | 2025-03-27 10:24 | XMS_ITS | Encounter Summary ---
Author Organization [facility] Address [address] [place] [address] Phone Care Team Providers Care Winery Cellar Hand Name Role Phone Sindhu Valerio Primary Care Provider [phone] Sindhu Valerio Unavailable Rakan Rodríguez MD Unavailable [phone] Leilani Anguiano MD Unavailable [phone] Encounter Details Date Type Department Care Team (Late st Contact Info) Description 03/05/2025 Orders Only [facility] [address], 10th [place] [address] Rakan Rodríguez MD [address] [place] [address] [email or web address] Pancreatic adenocarcinoma (Primary Dx) Social History Tobacco [...] Description 12/01/2025 11:30 AM EDT Office Visit [facility] Neurology [address] [place] [address] Kannan Mojica MD [address] [facility], 2nd [place] [address] [email or web address] documented as of this encounter Visit Diagnoses Diagnosis Pancreatic adenocarcinoma- Primary Malignant neoplasm of pancreas, part unspecified documented in this encounter Care Teams Winery Cellar Hand Relationship Specialty Start Date End Date Sindhu Valerio PA [address] [place] [address] PCP - General Physician Fisher Crab 03/05/25 Sindhu Valerio PA [address] [place] [address] Referring Physician Physician Fisher Crab 03/05/25 Rakan Rodríguez MD [address] [place] [id number] [email or web address] Medical Oncology 03/18/25 Leilani Anguiano MD [address] [place] [phone] [email or web address] Internal Medicine 03/05/25 documented as of this encounter Additional Source Comments The information contained in this document represents components of the legal health record. It is not the complete legal health record.[facility]
--- OUTSIDE RECORDS SUMMARY | 2025-03-27 10:24 | XMS_ITS | Encounter Summary ---
Author Organization [facility] Address [address] [place] [address] Phone Care Team Providers Care Water/Wastewater Engineer Name Role Phone Osito Vernon MD Primary Care Provider [phone] Sindhu Valerio Primary Care Provider [phone] Sindhu Valerio Unavailable Rakan Rodríguez MD Unavailable [phone] Leilani Anguiano MD Unavailable [phone] Encounter Details Date Type Department Care Team (Late st Contact Info) Description 05/14/2018 Procedure Pass [facility] Endoscopy Admitting Dept Virtual Department [address] [place] [id number] Social History Tobacco Use Types Packs/Day Years [...] Description 12/01/2025 11:30 AM EDT Office Visit [facility] Neurology [address] [place] [address] [place] [address] Kannan Mojica MD [address] [facility], 2nd [place] [address] [email or web address] documented as of this encounter Visit Diagnoses Not on filedocumented in this encounter Care Teams Water/Wastewater Engineer Relationship Specialty Start Date End Date Osito Vernon MD [address] [facility] [address] [place] [phone] [email or web address] PCP - General Family Medicine 05/14/18 03/04/25 Sindhu Valerio PA [address] [place] [address] PCP - General Physician Nutrition Services Worker 03/05/25 Sindhu Valerio PA [address] [place] [address] Referring Physician Physician Nutrition Services Worker 03/05/25 Rakan Rodríguez MD [address] [place] [phone] [email or web address] Medical Oncology 03/18/25 Leilani Anguiano MD [address] [place] [phone] [email or web address] Internal Medicine 03/05/25 documented as of this encounter Additional Source Comments The information contained in this document represents components of the legal health record. It is not the complete legal health record.[facility]
--- OUTSIDE RECORDS SUMMARY | 2025-03-27 10:24 | XMS_ITS | Patient Health Record ---
Author Organization [facility] Address [address] [place] [address] Care Team Providers Care Apparel Manufacture Instructor Name Role Phone Jerrod Salinas Jr Reason For Referral No Information Plan Of Treatment No Information
[2025-03-27 10:56] VITALS: RESP 14
[2025-03-27] MEDS: diazePAM 10 MG/2 ML CARTRIDGE 2.5 MG IVPUSH (10:56)
--- NOTE | 2025-03-27 11:43 | MHC.CM.ED ---
Addendum entered by Elizabeth Montes 03/27/25 14:24: Hospice informational completed at bedside. Padma is interested in taking patient home with hospice. [facility] is not able to sign patient onto hospice until Monday. Patient will also need a hospital bed. Per Vikki MALIN, patient will be admitted to the hospital and then d/c home on Monday with [facility]. Sade from [facility] will touch base with Padma about d/c plan. Original Note: Received case management consult from Vikki MALIN. Patient came to the ER due to AMS. Patient has pancreatic cancer and is on palliative chemo. Last chemo was Monday. Patient's , Padma, is now interested in comfort measures. Met with patient, , and 2 family friends in regards to discharge planning. Patient is currently lethargic. Padma is interested in hospice but doesn't know much about. Padma agreeable to bedside hospice informational meeting. Spoke with Nathalia of [facility]. Nathalia will let CM know when bedside informational can be arranged. Per Nathalia, patient was scheduled to admit to [facility] today. Continue to monitor for d/c needs.
[2025-03-27 12:10] VITALS: PULSE 87; RESP 13; O2SAT 98
[2025-03-27 12:19] LABS: Troponin-I High Sensitivity 108.7 ng/L (<3.5-35.0)
[2025-03-27 14:27] VITALS: RESP 18; TEMP 36.2; O2SAT 100
--- NOTE | 2025-03-27 15:05 | PC.NURSE ---
Pt resting with eyes closed, RR even and unlabored. Pt is off the monitor d/t BAR WAITER/WAITRESS. Scopolamine patch still not verified by pharmacy at this time.
--- NOTE | 2025-03-27 15:59 | PM.IMHP ---
History of Present Illness Date of Service: 03/27/25 Attending physician on admission: Alvarez Mcfarland Chief Complaint: Altered mental status and obtundation 79-year-old male, with a history of recently diagnosed metastatic pancreatic adenocarcinoma on palliative chemotherapy presents today with altered mental status. Due to the patient's medical condition, the history was obtained from collateral history from family members as well as the medical chart. Patient was recently diagnosed with pancreatic cancer. Found to be metastatic in nature. Received palliative chemotherapy 1st session on 03/21/2025. Since receiving chemotherapy, the patient has had decreased swallowing, decreased appetite, more fatigue, and worsening muscle wasting. This morning, the patient woke up with worsening altered mental status, and relative unresponsiveness. He was suffering with respiratory difficulty and distress. EMS was contacted, the patient was transported to the hospital. ED MANAGEMENT Noted to be lethargic and cachectic Blood work revealing transaminitis and elevated troponin ECG unremarkable ED provider KIMO Morales engaged in extensive discussion regarding the patient's goals of care prognostication and current medical state. To shared decision-making, the patient was transitioned to comfort measures only and home hospice would be the most appropriate measure at this time. MOLST form was filed in the emergency room. Collaboration with case management: The patient would be placed for home hospice care on MondayMarch 31. EVALUATION On evaluation, the patient was unresponsive with intermittent gasping wakefulness, without ability to respond to questions or engage meaningfully in history. Discussion was held with family members, and they understand the criticality of the patient's current state, and the possibility of him passing within the next 24-48 hours. Filler Machine Operator services were offered. Admission to hospitalist service accepted. Review of Systems Review of Systems: Yes Unobtainable due to mental condition and Unobtainable due to mental status [facility] Medical History Vitamin D deficiency Overweight (BMI 25.0-29.9) CAD (coronary artery disease) Dyslipidemia Hypertension Diabetic nephropathy associated with type 2 diabetes mellitus Diabetes type 2, uncontrolled Family History Father No problems noted. Mother No problems noted. Maternal Uncle Diabetes mellitus Family/Other Stomach cancer Surgical History History of left inguinal hernia repair (06/30/24) Stented coronary artery History of prostate surgery Hx of cardiac cath Social History Household Members: Spouse Housing: House Are you a primary plant care worker to a significant other at home: No Do you presently have visiting nurse or other home services: No Alcohol intake: current Alcohol intake frequency: holidays/special occasions only Alcohol type: beer Patient Tobacco Use Status: Former Tobacco user Tobacco use type: Cigarette Smoked in Last 30 Days: No Second Hand Smoke Exposure: No Use of substances other than those prescribed or required for medical reasons: No Substance Use Type: Marijuana Have you been hit, kicked, punched, or otherwise hurt by someone within the past year? If so, by whom?: No Do you feel safe in your current relationship?: Yes Is there a partner from a previous relationship who is making you feel unsafe now?: No Are you made to feel afraid or neglected: No Advance Directives: Yes Advance Directives on File: Yes Advance Directives Date on File: 02/21/25 Do you have a plan to hurt others: No Plan Recently lost weight without trying: Yes How much weight loss: 24-33 pounds Eating poorly because of decreased appetite: Yes Nutrition screen score: 6 Nutrition Risks: Difficulty chewing, Difficulty swallowing, On aspiration precautions and Poor intake 0-25% >4 days Poor oral hygiene: No service: No Current occupational status: retired Meds Allergies Allergy/AdvReac Type Severity Reaction Status Date / Time No Known Allergies (NO KNOWN Allergy Unknown UNKNOWN Verified 03/27/25 09:09 ALLERGIES) Active Medications: Current Medications Acetaminophen (Acetaminophen 325 Mg Tablet) 650 mg PO Q4H PRN PRN Reason: Fever >/= 100, Pain, mild 1-3 Albuterol/Ipratropium (Albuterol/Iprat 2.5/0.5mg 3 Ml Ampul.Neb) 3 ml INHALE Q4H PRN PRN Reason: Shortness of Breath/Wheezing Calcium Carbonate (Calcium Carbonate 750 Mg Tab.Chew) 750 mg PO Q4H PRN PRN Reason: Heartburn Hydromorphone HCl (Hydromorphone Hcl 2 Mg Tablet) 2 mg PO Q4H PRN PRN Reason: Pain, Moderate(Pain Scale 4-6) Hydromorphone HCl (Hydromorphone Hcl 0.5 Mg/0.5 Ml Syringe) 0.25 mg IVPUSH Q1H PRN PRN Reason: Pain, Severe (Pain Scale 7-10) Sodium Chloride (Ns) 1,000 mls @ 150 mls/hr IV .Q6H40M [facility] Stop: 03/27/25 17:54 Last Admin: 03/27/25 11:03 Dose: 150 mls/hr Ibuprofen (Ibuprofen 400 Mg Tablet) 400 mg PO Q6H PRN PRN Reason: Fever >/= 100, Pain, mild 1-3 Magnesium Hydroxide (Milk Of Magnesia 30 Ml Oral.Susp) 30 ml PO DAILY PRN PRN Reason: Constipation Melatonin (Melatonin 3 Mg Tablet) 6 mg PO BEDTIME PRN PRN Reason: Insomnia Ondansetron HCl (Ondansetron Hcl 4 Mg/2 Ml Vial) 4 mg IVPUSH Q8H PRN PRN Reason: Nausea and Vomiting Ondansetron HCl (Ondansetron Odt 4 Mg Tab.Rapdis) 4 mg TRANSLINGU Q8H PRN PRN Reason: Nausea and Vomiting Scopolamine (Scopolamine 1.5 Mg Patch.Td.3) 1.5 mg TRANSDERMA Q72H [facility] Last Admin: 03/27/25 15:38 Dose: 1.5 mg Sodium Chloride (0.9 % Sodium Chloride Flush 3 Ml Syringe) 3 ml IVFLUSH QSHIFT [facility] Home Medications ?Medication ?Instructions ?Recorded ?Confirmed ?Last Taken ?Type blood sugar diagnostic #10 ea 06/15/20 03/05/25 Unknown History coenzyme Q10 75 mg capsule (Ultra 75 mg PO DAILY 04/06/21 03/05/25 02/17/25 History CoQ10) glimepiride 2 mg tablet 2 mg PO BID 09/25/23 03/05/25 02/17/25 History dulaglutide 1.5 mg/0.5 mL 1.5 mg subcut Q2W 06/29/24 03/05/25 02/19/25 History subcutaneous pen injector (Trulicity) metoprolol succinate 100 mg 100 mg PO DAILY@1900 06/29/24 03/05/25 02/17/25 History tablet,extended release 24 hr acetaminophen 325 mg tablet 650 mg PO Q4H PRN Pain 02/17/25 03/05/25 Unknown History finasteride 5 mg tablet 5 mg PO DAILY 02/17/25 03/05/25 1 Week Ago History ~02/10/25 empagliflozin 25 mg tablet 25 mg PO DAILY 03/27/25 03/27/25 Unknown History (Jardiance) mirtazapine 15 mg tablet 7.5 mg PO DAILY 03/27/25 Unknown History Physical Exam Vital Signs and Narrative: Vital Signs: Last Vital Signs Temp 97.1 F 03/27/25 14:27 Pulse 87 03/27/25 12:10 Resp 18 03/27/25 14:27 BP 148/81 H 03/27/25 10:12 Pulse Ox 100 03/27/25 14:27 O2 Del Method Room Air 03/27/25 14:27 BMI result Body Mass Index 21.0 General: Appears comfortable in bed, without pain. Alert and oriented x0; not to person place time or situation. Minimally responsive to verbal or physical commands. Intermittent agonal waking/ gasping. Cardiac: S1, S2 auscultated with no S3/4, no MRG. Well perfused. Respiratory: Normal breath sounds auscultated throughout all lung zones, without wheezing, rales. Normal right. Reduced inspiratory to expiratory breath times bilaterally. GI/ : No abdominal pain on palpation, no masses or distentions. MSK: Cachectic throughout upper and lower extremities. Temporal wasting noted Neurological: Normal neurological examination on overview, without obvious CN II-XII abnormalities. Results Labs 03/27/25 09:22 03/27/25 09:20 Labs: Laboratory Results - last 24 hr 03/27/25 03/27/25 03/27/25 09:20 09:21 09:22 MCV Cancelled 93.2 MCH Cancelled 32.9 MCHC Cancelled 35.3 RDW Cancelled 13.0 Plt Count Cancelled 46 L D MPV Cancelled 10.2 Immature Gran % (Auto) Cancelled Cancelled Neut % (Auto) Cancelled Cancelled Lymph % (Auto) Cancelled Cancelled [place] % (Auto) Cancelled Cancelled Eos % (Auto) Cancelled Cancelled Baso % (Auto) Cancelled Cancelled Lymph # (Auto) Cancelled Cancelled [place] # (Auto) Cancelled Cancelled Eos # (Auto) Cancelled Cancelled Baso # (Auto) Cancelled Cancelled Abs Immat Gran (auto) Cancelled Cancelled Absolute Neuts (auto) Cancelled Cancelled Absolute Nucleated RBC Cancelled 0.000 Nucleated RBC % (auto) Cancelled 0.0 Neutrophils % (Manual) 85 H Band Neutrophils % 5 Lymphocytes % (Manual) 5 L Monocytes % (Manual) 2 Eosinophils % (Manual) 2 Metamyelocytes % 1 Abs Neuts (Manual) 5.6 Lymphocytes # (Manual) 0.3 L Monocytes # (Manual) 0.1 Eosinophils # (Manual) 0.1 Metamyelocytes # 0.1 Smudge Cells PRESENT Toxic Vacuolation PRESENT Platelet Estimate DECREASED Large Platelets PRESENT Plt Morphology Comment NOTED RBC Morphology NOTED Brant Cells 1+ (0-2) Acanthocytes (Spur) 1+ (0-2) PT 15.1 H D INR 1.3 H Anion Gap 20 Estim Creat Clear Calc 87.0 Estimated GFR > 60 Random Glucose 73 Lactic Acid 1.2 Calcium 8.3 L D Magnesium 1.9 Total Bilirubin 1.0 AST 65 H ALT 73 H Alkaline Phosphatase 572 H Total Protein 5.9 L Albumin 3.0 L COVID-19 (MARSHALL) Negative COVID-19 Clin Com See Note Influenza Type A (AMEYA) Negative Influenza Type B (AMEYA) Negative Influenza A & B Note See Note Imaging Radiologist's Impressions: Impressions Chest X-Ray 03/27/25 08:30 IMPRESSION: No acute airspace disease. Stable chest. Calcific tendinosis/tendinopathy, left supraspinatus tendon. 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 Electronically signed by: Dayday Gibbons MD 03/27/2025 09:43 AM EDT Assessment and Plan (1) Adult failure to thrive: Status: Acute (2) Pancreatic adenocarcinoma: Status: Acute (3) Metastasis: Qualifiers: Area of secondary neoplastic involvement: other site Qualified Code(s): C79.89 - Secondary malignant neoplasm of other specified sites Status: Acute Plan 79-year-old male, with a history of recently diagnosed metastatic pancreatic adenocarcinoma on palliative chemotherapy presents today with altered mental status, admitted with adult failure to thrive in the setting of metastatic pancreatic adenocarcinoma, transitioned to comfort measures only 03/27/2025. Failure to thrive Metastatic pancreatic adenocarcinoma Comfort Measures Only Goals of Care: The goal is to provide maximal comfort and preserved dignity, allowing for a natural dying process. Life prolonging treatments are not being pursued due to multi organ dysfunction with terminal diagnosis, poor prognosis, overwhelming disease burden. Advanced directives: Patient's advanced directive is on file and reviewed. The patient's surrogate, is aware and agrees with the plan for STRIKE WARFARE/MISSILE SYSTEMS OFFICER. Interventions: All interventions will be focused on symptom management including relief of pain, anxiety, dyspnea, nausea/vomiting. Resuscitation status: DNR/DNI/DNH orders are in place Quality Stroke Does the patient have a stroke diagnosis?: No VTE Prior VTE?: No VTE Risk Level:: Medical - moderate - high VTE Device Contraindication: N/A - Device Ordered VTE Drug Contraindication: N/A - Med Ordered
[2025-03-27 16:01] VITALS: BMI 21.5
[2025-03-27 16:14] VITALS: BP 136/77; PULSE 84; RESP 16; TEMP 36.2; O2SAT 98
--- NOTE | 2025-03-27 18:29 | PHA.MEDREC ---
Addendum entered by Reji Pepe PharmD 03/27/25 18:39: reviewed Original Note: Pharmacy Consult ? Medication Reconciliation Pharmacy has completed the medication reconciliation. Spoke to patients at bedside to confirm med list. had a list of patients medications with her. states patient is no longer taking Acetaminphen 650 mg, Atorvastatin 80 mg, Coenzyme Q10 75 mg, Docusate sodium 100 mg and Tramadol 50 mg. confirmed Trulicity 1.5 mg subcut q2 weeks , last dose over 2 weeks ago, last fill date was 11/07/24 for 84 days. Patient last has his medications yesterday.
[2025-03-28] MEDS: diazePAM 10 MG/2 ML CARTRIDGE 2.5 MG IVPUSH ×3 (01:18→14:56)
[2025-03-28 04:00] VITALS: RESP 17
[2025-03-28 07:20] VITALS: BP 125/71; PULSE 94; RESP 16; TEMP 36.9; O2SAT 97
[2025-03-28] MEDS: 0.9 % Sodium Chloride Flush 3 ML SYRINGE IVFLUSH (08:07)
--- NOTE | 2025-03-28 12:22 | HO.PM.IMPN ---
Subjective Subjective Date of Service: 03/28/25 Interval History: The patient demonstrates limited responsiveness, primarily reacting to voice stimuli. He is able to turn in bed, sit up, and get out of bed when prompted, but does not make eye contact or provide verbal responses. The patient's overall condition appears to have declined significantly, as evidenced by his limited responsiveness and the implementation of comfort measures only. His current level of functioning is severely impaired, with minimal interaction with his environment beyond basic movements in response to voice commands. Review of Systems Review of Systems: Yes Unobtainable due to mental condition and Unobtainable due to mental status Physical Exam Exam: Exam: General: Some responsiveness to voice. Turns in bed and responds to voice. Sits up but does not make eye contact. No verbal responses. Appears comfortable in bed, without pain. Alert and oriented x0; not to person place time or situation. Minimally responsive to verbal or physical commands. Intermittent agonal waking/ gasping. Cardiac: S1, S2 auscultated with no S3/4, no MRG. Well perfused. Respiratory: Normal breath sounds auscultated throughout all lung zones, without wheezing, rales. Normal right. Reduced inspiratory to expiratory breath times bilaterally. GI/ : No abdominal pain on palpation, no masses or distentions. MSK: Cachectic throughout upper and lower extremities. Temporal wasting noted Neurological: Normal neurological examination on overview, without obvious CN II-XII abnormalities. Vital Signs: Vital Signs: Last Vital Signs Temp 98.5 F 03/28/25 07:20 Pulse 94 03/28/25 07:20 Resp 16 03/28/25 07:20 BP 125/71 03/28/25 07:20 Pulse Ox 97 03/28/25 07:20 O2 Del Method Nasal Cannula 03/28/25 07:20 O2 Flow Rate 2 03/28/25 07:20 BMI result Body Mass Index 21.5 Objective Data Active Medications Acetaminophen (Acetaminophen 325 Mg Tablet) 650 mg PO Q4H PRN PRN Reason: Fever >/= 100, Pain, mild 1-3 Albuterol/Ipratropium (Albuterol/Iprat 2.5/0.5mg 3 Ml Ampul.Neb) 3 ml INHALE Q4H PRN PRN Reason: Shortness of Breath/Wheezing Calcium Carbonate (Calcium Carbonate 750 Mg Tab.Chew) 750 mg PO Q4H PRN PRN Reason: Heartburn Diazepam (Diazepam 10 Mg/2 Ml Cartridge) 2.5 mg IVPUSH Q4H PRN PRN Reason: anxiety,agitation Last Admin: 03/28/25 10:34 Dose: 2.5 mg Documented By: OPAL Hydromorphone HCl (Hydromorphone Hcl 2 Mg Tablet) 2 mg PO Q4H PRN PRN Reason: Pain, Moderate(Pain Scale 4-6) Hydromorphone HCl (Hydromorphone Hcl 0.5 Mg/0.5 Ml Syringe) 0.25 mg IVPUSH Q1H PRN PRN Reason: Pain, Severe (Pain Scale 7-10) Last Admin: 03/28/25 11:07 Dose: 0.25 mg Documented By: OPAL Ibuprofen (Ibuprofen 400 Mg Tablet) 400 mg PO Q6H PRN PRN Reason: Fever >/= 100, Pain, mild 1-3 Magnesium Hydroxide (Milk Of Magnesia 30 Ml Oral.Susp) 30 ml PO DAILY PRN PRN Reason: Constipation Melatonin (Melatonin 3 Mg Tablet) 6 mg PO BEDTIME PRN PRN Reason: Insomnia Ondansetron HCl (Ondansetron Hcl 4 Mg/2 Ml Vial) 4 mg IVPUSH Q8H PRN PRN Reason: Nausea and Vomiting Ondansetron HCl (Ondansetron Odt 4 Mg Tab.Rapdis) 4 mg TRANSLINGU Q8H PRN PRN Reason: Nausea and Vomiting Scopolamine (Scopolamine 1.5 Mg Patch.Td.3) 1.5 mg TRANSDERMA Q72H [facility] Last Admin: 03/27/25 15:38 Dose: 1.5 mg Documented By: AMARA Sodium Chloride (0.9 % Sodium Chloride Flush 3 Ml Syringe) 3 ml IVFLUSH QSHIFT [facility] Last Admin: 03/28/25 08:07 Dose: 3 ml Documented By: OPAL Labs 03/27/25 09:22 03/27/25 09:20 Labs: Laboratory Results - last 24 hr 03/27/25 09:20 Magnesium 1.9 Microbiology Microbiology Results: Microbiology 03/27/25 09:20 Blood Culture - Preliminary Blood - Venous No growth after 24 hours. 03/27/25 09:23 Blood Culture - Preliminary Blood - Venous No growth after 24 hours. Assessment and Plan (1) Pancreatic adenocarcinoma: Status: Acute (2) Metastasis: Status: Acute Plan 79-year-old male, with a history of recently diagnosed metastatic pancreatic adenocarcinoma on palliative chemotherapy presents today with altered mental status, admitted with adult failure to thrive in the setting of metastatic pancreatic adenocarcinoma, transitioned to comfort measures only 03/27/2025. Failure to thrive Metastatic pancreatic adenocarcinoma Comfort Measures Only Goals of Care: The goal is to provide maximal comfort and preserved dignity, allowing for a natural dying process. Life prolonging treatments are not being pursued due to multi organ dysfunction with terminal diagnosis, poor prognosis, overwhelming disease burden. Advanced directives: Patient's advanced directive is on file and reviewed. The patient's surrogate, is aware and agrees with the plan for CEPHALOMETRIC TRACER. Interventions: All interventions will be focused on symptom management including relief of pain, anxiety, dyspnea, nausea/vomiting. Resuscitation status: DNR/DNI/DNH orders are in place Quality Stroke Does the patient have a stroke diagnosis?: No VTE Prior VTE?: No VTE Risk Level:: Medical - moderate - high VTE Device Contraindication: N/A - Device Ordered VTE Drug Contraindication: N/A - Med Ordered
--- NOTE | 2025-03-28 12:46 | MHC.CM.PN ---
Patient with Pancreatic CA lives with his . He was active with [facility]. His baseline was independent. Per he is very fragile now. Hospice was consulted. A Hospice informational meeting was provided. Hospice services have been accepted. [facility] will provide hospice services in the home. SOC is Monday or Monday, dependent on staffing. [facility] with [facility] via BLS transport.
--- NOTE | 2025-03-28 14:46 | MHC.CLN ---
NUTRITION PATIENT STATUS IS COMFORT MEASURES ONLY. RD AVAILABLE NEEDED.
[2025-03-28 15:18] VITALS: BP 121/70; PULSE 99; RESP 20; TEMP 36.7; O2SAT 97
[2025-03-28 20:00] VITALS: BP 128/70; PULSE 91; RESP 18; TEMP 36.4; O2SAT 93
[2025-03-29 03:31] VITALS: BP 134/74; PULSE 93; RESP 20; TEMP 37.1; O2SAT 94
--- NOTE | 2025-03-29 10:30 | HO.PM.IMPN ---
Subjective Subjective Date of Service: 03/29/25 Interval History: Still demonstrating limited responsiveness today, reacting to vocal stimuli. He is still able to sit up and mobilize around the bed, however does not make eye contact or provide verbal responses. Patient continues to comfortably decline Physical Exam Exam: Exam: General: Some responsiveness to voice (wakefulness, not engaging). Turns in bed and responds to voice. Sits up but does not make eye contact. No verbal responses. Appears comfortable in bed, without pain. Alert and oriented x0; not to person place time or situation. Minimally responsive to verbal or physical commands. Intermittent agonal waking/ gasping. Cardiac: S1, S2 auscultated with no S3/4, no MRG. Well perfused. Respiratory: Normal breath sounds auscultated throughout all lung zones, without wheezing, rales. Normal right. Reduced inspiratory to expiratory breath times bilaterally. GI/ : No abdominal pain on palpation, no masses or distentions. MSK: Cachectic throughout upper and lower extremities. Temporal wasting noted Neurological: Normal neurological examination on overview, without obvious CN II-XII abnormalities. Vital Signs: Vital Signs: Last Vital Signs Temp 98.7 F 03/29/25 03:31 Pulse 93 03/29/25 03:31 Resp 20 03/29/25 03:31 BP 134/74 03/29/25 03:31 Pulse Ox 94 03/29/25 03:31 O2 Del Method Room Air 03/29/25 03:31 O2 Flow Rate 2 03/28/25 20:00 BMI result Body Mass Index 21.5 Objective Data Active Medications Acetaminophen (Acetaminophen 325 Mg Tablet) 650 mg PO Q4H PRN PRN Reason: Fever >/= 100, Pain, mild 1-3 Albuterol/Ipratropium (Albuterol/Iprat 2.5/0.5mg 3 Ml Ampul.Neb) 3 ml INHALE Q4H PRN PRN Reason: Shortness of Breath/Wheezing Calcium Carbonate (Calcium Carbonate 750 Mg Tab.Chew) 750 mg PO Q4H PRN PRN Reason: Heartburn Diazepam (Diazepam 10 Mg/2 Ml Cartridge) 2.5 mg IVPUSH Q4H PRN PRN Reason: anxiety,agitation Last Admin: 03/28/25 14:56 Dose: 2.5 mg Documented By: CHANDLER Hydromorphone HCl (Hydromorphone Hcl 2 Mg Tablet) 2 mg PO Q4H PRN PRN Reason: Pain, Moderate(Pain Scale 4-6) Hydromorphone HCl (Hydromorphone Hcl 0.5 Mg/0.5 Ml Syringe) 0.25 mg IVPUSH Q1H PRN PRN Reason: Pain, Severe (Pain Scale 7-10) Last Admin: 03/28/25 17:21 Dose: 0.25 mg Documented By: CHANDLER Ibuprofen (Ibuprofen 400 Mg Tablet) 400 mg PO Q6H PRN PRN Reason: Fever >/= 100, Pain, mild 1-3 Magnesium Hydroxide (Milk Of Magnesia 30 Ml Oral.Susp) 30 ml PO DAILY PRN PRN Reason: Constipation Melatonin (Melatonin 3 Mg Tablet) 6 mg PO BEDTIME PRN PRN Reason: Insomnia Ondansetron HCl (Ondansetron Hcl 4 Mg/2 Ml Vial) 4 mg IVPUSH Q8H PRN PRN Reason: Nausea and Vomiting Ondansetron HCl (Ondansetron Odt 4 Mg Tab.Rapdis) 4 mg TRANSLINGU Q8H PRN PRN Reason: Nausea and Vomiting Scopolamine (Scopolamine 1.5 Mg Patch.Td.3) 1.5 mg TRANSDERMA Q72H [facility] Last Admin: 03/27/25 15:38 Dose: 1.5 mg Documented By: AMARA Sodium Chloride (0.9 % Sodium Chloride Flush 3 Ml Syringe) 3 ml IVFLUSH QSHIFT [facility] Last Admin: 03/29/25 01:35 Dose: Not Given Documented By: LISA Non-Admin Reason: IV Running Labs 03/27/25 09:22 03/27/25 09:20 Microbiology Microbiology Results: Microbiology 03/27/25 09:20 Blood Culture - Preliminary Blood - Venous No growth after 24 hours. 03/27/25 09:23 Blood Culture - Preliminary Blood - Venous No growth after 24 hours. Assessment and Plan (1) Pancreatic adenocarcinoma: Status: Acute (2) Metastasis: Status: Acute Plan 79-year-old male, with a history of recently diagnosed metastatic pancreatic adenocarcinoma on palliative chemotherapy presents today with altered mental status, admitted with adult failure to thrive in the setting of metastatic pancreatic adenocarcinoma, transitioned to comfort measures only 03/27/2025. Failure to thrive Metastatic pancreatic adenocarcinoma Comfort Measures Only Goals of Care: The goal is to provide maximal comfort and preserved dignity, allowing for a natural dying process. Life prolonging treatments are not being pursued due to multi organ dysfunction with terminal diagnosis, poor prognosis, overwhelming disease burden. Advanced directives: Patient's advanced directive is on file and reviewed. The patient's surrogate, is aware and agrees with the plan for CATALOG LIBRARIAN. Interventions: All interventions will be focused on symptom management including relief of pain, anxiety, dyspnea, nausea/vomiting. Resuscitation status: DNR/DNI/DNH orders are in place Total time managing care of this patient today: 20 minutes. Quality Stroke Does the patient have a stroke diagnosis?: No VTE Prior VTE?: No VTE Risk Level:: Medical - moderate - high VTE Device Contraindication: N/A - Device Ordered VTE Drug Contraindication: N/A - Med Ordered
[2025-03-29] MEDS: 0.9 % Sodium Chloride Flush 3 ML SYRINGE IVFLUSH (12:32)
[2025-03-29 12:34] VITALS: RESP 22
[2025-03-29 13:55] VITALS: RESP 12
[2025-03-29 15:24] VITALS: RESP 14
--- NOTE | 2025-03-29 16:56 | PC.NURSE ---
Patient resting in bed throughout shift, will open eyes to voice. Family and friends visiting throughout shift. PRN medications administered per MAR. Patient turned and repositioned every 2 hours and as needed for comfort. and daughter educated to use call heaton if needed.
[2025-03-29 20:00] VITALS: PULSE 86; RESP 18; O2SAT 95
[2025-03-30] MEDS: 0.9 % Sodium Chloride Flush 3 ML SYRINGE IVFLUSH ×2 (01:07→07:36)
[2025-03-30 07:40] VITALS: RESP 24
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
--- NOTE | 2025-03-30 11:47 | PM.DS ---
DS: Providers Provider Date of Service: 03/30/25 Date of admission: 03/27/25 14:37 Date of discharge: 03/30/25 Primary care physician: Sindhu Valerio PA-C Admitting clinician: Alvarez Mcfarland Consults: 03/27/25 14:30 Consult to Case Management Stat Comment: Consult to St[facility] Former Stat Comment: Consult to Hospice Stat Comment: Attending physician on discharge: Alvarez Mcfarland DS: Diagnosis Discharge Diagnosis (1) Pancreatic adenocarcinoma: Status: Acute (2) Metastasis: Status: Acute DS: Summary Hospital Course Hospital Course: 79-year-old male, with a history of recently diagnosed metastatic pancreatic adenocarcinoma on palliative chemotherapy presents today with altered mental status, admitted with adult failure to thrive in the setting of metastatic pancreatic adenocarcinoma, transitioned to comfort measures only 03/27/2025. Due to the patient's medical condition, the history was obtained from collateral history from family members as well as the medical chart. Patient was recently diagnosed with pancreatic cancer. Found to be metastatic in nature. Received palliative chemotherapy 1st session on 03/21/2025. Since receiving chemotherapy, the patient has had decreased swallowing, decreased appetite, more fatigue, and worsening muscle wasting. This morning, the patient woke up with worsening altered mental status, and relative unresponsiveness. He was suffering with respiratory difficulty and distress. EMS was contacted, the patient was transported to the hospital. ED MANAGEMENT Noted to be lethargic and cachectic Blood work revealing transaminitis and elevated troponin ECG unremarkable ED provider KIMO Morales engaged in extensive discussion regarding the patient's goals of care prognostication and current medical state. To shared decision-making, the patient was transitioned to comfort measures only and home hospice would be the most appropriate measure at this time. MOLST form was filed in the emergency room. Collaboration with case management: The patient would be placed for home hospice care on MondayMarch 31. EVALUATION On evaluation, the patient was unresponsive with intermittent gasping wakefulness, without ability to respond to questions or engage meaningfully in history. Discussion was held with family members, and they understand the criticality of the patient's current state, and the possibility of him passing within the next 24-48 hours. St[facility] Former services were offered. Admission to hospitalist service accepted. Failure to thrive Metastatic pancreatic adenocarcinoma Comfort Measures Only Goals of Care: The goal is to provide maximal comfort and preserved dignity, allowing for a natural dying process. Life prolonging treatments are not being pursued due to multi organ dysfunction with terminal diagnosis, poor prognosis, overwhelming disease burden. Advanced directives: Patient's advanced directive is on file and reviewed. The patient's surrogate, is aware and agrees with the plan for FLIGHT RADIO OFFICER. Interventions: All interventions will be focused on symptom management including relief of pain, anxiety, dyspnea, nausea/vomiting. Resuscitation status: DNR/DNI/DNH orders are in place Status at Discharge Functional status at discharge: bed bound Overall status at discharge: other (FLIGHT RADIO OFFICER) Time Attestation Total time managing care of this patient today: 35 mintues. Discharge Coordination Time (in mins): 15 Quality: Safe Use of Opioids Does Pt have an Active Cancer Diagnosis on the Problem List?: Yes Opioid Measure Date for [facility] Report: 02/28/25 Opioid Measure Time for [facility] Report: 11:48 Quality: Stroke Does the patient have a stroke diagnosis?: No Physical Exam Exam: Exam: General: Appears comfortable in bed, without pain. Alert and oriented x0; not to person place time or situation. Minimally responsive to verbal or physical commands. Intermittent agonal waking/ gasping. Cardiac: S1, S2 auscultated with no S3/4, no MRG. Well perfused. Respiratory: Normal breath sounds auscultated throughout all lung zones, without wheezing, rales. Normal right. Reduced inspiratory to expiratory breath times bilaterally. GI/ : No abdominal pain on palpation, no masses or distentions. MSK: Cachectic throughout upper and lower extremities. Temporal wasting noted Neurological: Normal neurological examination on overview, without obvious CN II-XII abnormalities. Vital Signs: Vital Signs: Last Vital Signs Temp 98.7 F 03/29/25 03:31 Pulse 86 03/29/25 20:00 Resp 24 H 03/30/25 07:40 BP 134/74 03/29/25 03:31 Pulse Ox 95 03/29/25 20:00 O2 Del Method Room Air 03/29/25 03:31 O2 Flow Rate 2 03/28/25 20:00 BMI result Body Mass Index 21.5 DS: Data Data Completed and Pending Completed studies during hospitalization [Text1]: Procedures Supplement Left Inguinal Region with Synthetic Substitute, Open Approach (06/29/24) Labs on day of discharge: Preliminary micro results at discharge 03/27/25 09:20 Blood Culture - Preliminary Blood - Venous No growth after 48 hours. 03/27/25 09:23 Blood Culture - Preliminary Blood - Venous No growth after 48 hours. Discharge Plan Discharge Anticipated Discharge Date/Time: 03/30/25 11:20 Patient Disposition: Hospice - Home Discharge Diagnosis: Failure to thrive in the setting of metastatic Pancreatic adenocarcinoma - transitioned to hospice Referrals: [facility] [Outside] Sindhu Valerio PA-C [Primary Care Provider, Family Practice] - 1 Week Discharge Medications: New morphine concentrate 100 mg/5 mL (20 mg/mL) solution 5 mg PO Q3H PRN (Reason: pain/comfort) 15 Days Qty: 30 0RF Rx Instructions: Partial Fill upon patient request. HOSPICE MEDS scopolamine base 1 mg over 3 days patch 3 day 1 patch transdermal Q72H 12 Days Qty: 4 0RF Rx Instructions: 1 patch behind ear Q72H for secretions. HOSPICE MEDS lorazepam [Lorazepam Intensol] 2 mg/mL concentrate 0.5 mg PO Q4H PRN (Reason: anxiety/restlessness) 10 Days Qty: 30 0RF Rx Instructions: HOSPICE MEDS haloperidol lactate 2 mg/mL Concentrate 1 mg PO Q6H PRN (Reason: Agitation/restlessness) 7 Days Qty: 15 1RF Rx Instructions: HOSPICE MEDS ondansetron 4 mg Tablet,Disintegrating 4 mg translingual Q8H PRN (Reason: Nausea And Vomiting) 10 Days Qty: 30 0RF scopolamine base [Transderm-Scop] 1 mg over 3 days Patch 3 Day 1.5 mg transdermal Q72H 9 Days Qty: 3 0RF Continued mirtazapine 15 mg tablet 7.5 mg PO BEDTIME finasteride 5 mg tablet 5 mg PO DAILY Discontinued metformin 1,000 mg tablet 1,000 mg PO BID 90 Days Qty: 180 1RF nitroglycerin 0.4 mg tablet, sublingual 0.4 mg sublingual Q5M PRN (Reason: chest pain) Qty: 30 1RF Rx Instructions: do not exceed 3 doses per episode isosorbide mononitrate 60 mg tablet extended release 24 hr 30 mg PO BID-TID Qty: 135 3RF lisinopril 5 mg tablet 5 mg PO DAILY Qty: 90 3RF metoprolol succinate 100 mg tablet extended release 24 hr 100 mg PO DAILY@1900 Trulicity 1.5 mg/0.5 mL pen injector 1.5 mg subcut Q2W ondansetron 8 mg Tablet,Disintegrating 8 mg PO Q8H PRN (Reason: Nausea) Qty: 30 0RF Jardiance 25 mg tablet 25 mg PO DAILY (DME) blood sugar diagnostic Strip See Rx Instructions Not Applicable TID Qty: 10 Rx Instructions: As directed glimepiride 2 mg tablet 2 mg PO BID Discharge Orders: Discharge Order (Routine); Ordered 03/30/25 Ordered By: Alvarez Mcfarland Activity on Discharge: As tolerated Stand Alone Forms: Patient Portal Discharge page Print Language: Kiswahili Care Plan Goals: Hospice care Health Concerns: Hospice care Plan of Treatment: Plan for home hospice Hospice provider should be evaluating patient within the next few days Assessment: As above
[2025-03-30 12:06] VITALS: RESP 20
[2025-03-30 12:28] VITALS: RESP 22
--- NOTE | 2025-03-30 12:40 | PC.NURSE ---
Discharge instructions reviewed with at bedside, questions answered regarding medications. IV removed. All belongings brought home by . Patient easily transitioned to stretcher.
== END 2025-03-30 12:44 | disposition hospice, home (50) | DRG 951 ==
LOC: HO.ED 14:14 → HO.EDOVER 14:37 → HO.S3 14:54
PROVIDERS: Physician Assistant Medical; Admitting Provider Hospitalist; Emergency Provider Emergency Medicine; PCP Student in an Organized Health Care Education/Training Program; Visit Provider Hospitalist
DX: Z51.5 Encounter for palliative care (principal); C79.9 Secondary malignant neoplasm of unspecified site; C25.9 Malignant neoplasm of pancreas, unspecified; I25.10 Atherosclerotic heart disease of native coronary artery without angina pectoris; R62.7 Adult failure to thrive; Z68.21 Body mass index [BMI] 21.0-21.9, adult; Z95.5 Presence of coronary angioplasty implant and graft; Z20.822 Contact with and (suspected) exposure to COVID-19; Z87.891 Personal history of nicotine dependence; Z79.899 Other long term (current) drug therapy
CPT/HCPCS: 71045; 80053; 83605; 83735; 84484; 85007; 85027; 85610; 87040; 87502; 87635; 93005; 99285; J1171; J2270; J3010; J3360

== ENCOUNTER → 2025-03-27 09:10 | Outpatient (BNV) | payer MEDICARE, SELFPAY | PROVIDERS: PCP Student in an Organized Health Care Education/Training Program; Visit Provider Radiology Diagnostic Radiology | DX: R41.82 Altered mental status, unspecified (principal) | CPT/HCPCS: 71045 ==

== ENCOUNTER → 2025-03-27 09:11 | Outpatient (BNV) | payer MEDICARE, SELFPAY | PROVIDERS: PCP Student in an Organized Health Care Education/Training Program; Visit Provider Internal Medicine Cardiovascular Disease | DX: R41.82 Altered mental status, unspecified (principal) | CPT/HCPCS: 93010 ==